=== PATIENT | male | born 1950 | race Caucasian/White ===

== ENCOUNTER → 2020-05-31 | Outpatient (CLI) | payer MEDICARE, OTHER ==
[2020-05-31 14:23] LABS: Appearance,Urine Clear (Clear); Basophils % (A) 1 %; Bilirubin,Urine Negative (Negative); Blood,Urine Negative (Negative); Color,Urine Yellow; Eosinophils # (A) 0.2 k/uL (0-0.7); Eosinophils % (A) 5 %; Glucose,Urine (UA) Negative (Negative); HCT 40.4 % (39.0-53.0); HGB 13.6 gm/dL (13.0-17.5); Ketones,Urine Negative (Negative); Leukocyte Esterase,Urine Negative (Negative); Lymphocytes # (A) 0.9 k/uL (1.0-4.8); Lymphocytes % (A) 19 %; MCH 31.5 pg (25.0-35.0); MCHC 33.6 g/dL (31.0-37.0); MCV 93.7 fL (80.0-100.0); Mean Platelet Volume 8.7; Monocytes # (A) 0.4 k/uL (0-1.0); Monocytes % (A) 8 %; Neutrophils # (A) 3.2 k/uL (1.3-7.7); Neutrophils % (A) 67 %; Nitrite,Urine Negative (Negative); Platelet Count 195 k/uL (150-450); Protein,Urine Negative (Negative); RBC 4.31 m/uL (4.30-5.90); RDW 13.8 % (11.5-15.5); Specific Gravity,Urine 1.018 (1.001-1.035); Urobilinogen,Urine <2.0 mg/dL (<2.0); WBC 4.8 k/uL (3.8-10.6)
[2020-05-31 14:33] LABS: INR 0.9 (<1.2); Partial Thromboplastin Time 25.9 sec (22.0-30.0); Prothrombin Time 9.9 sec (9.0-12.0)
[2020-05-31 14:37] LABS: ALT 32 U/L (4-49); AST 29 U/L (17-59); African American GFR (CKD) >90 (>60 ml/min/1.73 sqM); Albumin 3.9 g/dL (3.5-5.0); Alkaline Phosphatase 96 U/L (38-126); Anion Gap 7 mmol/L; Blood Urea Nitrogen 17 mg/dL (9-20); Calcium 9.5 mg/dL (8.4-10.2); Carbon Dioxide 29 mmol/L (22-30); Chloride 101 mmol/L (98-107); Glucose 211 mg/dL (74-99); Non-African American GFR(CKD) 89 (>60 ml/min/1.73 sqM); Potassium 4.3 mmol/L (3.5-5.1); Sodium 137 mmol/L (137-145); Total Bilirubin 0.6 mg/dL (0.2-1.3); Total Protein 6.6 g/dL (6.3-8.2)
== END | disposition home or self-care (01) ==
LOC: LABPAT 13:14
PROVIDERS: ATTEND Orthopaedic Surgery
DX: Z01.818 Encounter for other preprocedural examination (principal); Z79.01 Long term (current) use of anticoagulants
CPT/HCPCS: 36415; 80053; 81003; 85025; 85610; 85730; 87070; 93005

== ENCOUNTER 2020-06-08 12:17 | Day surgery (SDC) | payer MEDICARE, OTHER ==
[2020-06-04 09:25] VITALS: BMI 31.4
[~2020-06-08 12:17] MED LIST: ACETAMINOPHEN TAB 500 MG TAB PO PRN; DEXAMETHASONE SOD PHOSPHATE 4 MG/ML 1 ML VIAL IV ONE; GABAPENTIN 300 MG CAP PO PRN; MELOXICAM 7.5 MG TAB PO PRN; MIDAZOLAM 2 MG/2 ML VIAL IV PRN; ONDANSETRON 4 MG/2 ML VIAL IVP ONE; ROPIVACAINE 246.25 MG, EPINEPHrine 0.5 MG, KETOROLAC 30 MG, cloNIDine HCL/PF 80 MCG, WA... MISCELLANE PRN; TRANEXAMIC ACID 1,000 MG in SODIUM CHLORIDE 0.9% 100 ML IVPB PRN
[2020-06-08] MEDS: LACTATED RINGERS 1,000 ML IV SCH ×2 (13:18→22:08)
[2020-06-08] MEDS ORDERED: LIDOCAINE 1% (10MG/ML) FOR IV START INTRADERMA ONE (13:20)
[2020-06-08] MEDS ORDERED: MAGNESIUM HYDROXIDE 2,400 MG/10 ML CUP PO PRN (13:27)
[2020-06-08] MEDS ORDERED: HYDROmorphone 0.5 MG/0.5 ML SYRINGE IVP PRN ×2 (13:27)
[2020-06-08] MEDS ORDERED: ONDANSETRON 4 MG/2 ML VIAL IVP PRN (13:27)
[2020-06-08] MEDS ORDERED: HYDROcodone/APAP 5-325MG 1 EACH TAB PO PRN (13:27)
[2020-06-08] MEDS ORDERED: NALOXONE 0.4 MG/ML 1 ML VIAL IV PRN (13:27)
[2020-06-08] MEDS ORDERED: HYDROmorphone 0.2 MG/1 ML SYRINGE IVP PRN (13:27)
[2020-06-08] MEDS ORDERED: LIDOCAINE 1% INJ 10MG/ML (20 ML MDV) ONE (13:48)
[2020-06-08] MEDS ORDERED: ROCURONIUM 10 MG/ML (10 ML VIAL) IV ONE (13:48)
[2020-06-08] MEDS ORDERED: SUCCINYLCHOLINE CHLORIDE 100 MG/5 ML SYR IV ONE (13:48)
[2020-06-08] MEDS ORDERED: fentaNYL (PF) 50 MCG/ML 2 ML AMP ONE (13:48)
[2020-06-08] MEDS ORDERED: PHENYLEPHRINE-0.9% NACL SYG 1,000 MCG/10 ML SYRINGE ONE (13:48)
[2020-06-08] MEDS ORDERED: NEOSTIGMINE 1 MG/ML 10 ML VIAL ONE (13:48)
[2020-06-08] MEDS ORDERED: SODIUM CHLORIDE 0.9% IRRIG 1,000 ML BTL IRRIGATION ONE (13:48)
[2020-06-08] MEDS ORDERED: PROPOFOL 10 MG/ML 20 ML VIAL IV ONE (13:48)
[2020-06-08] MEDS ORDERED: MIDAZOLAM 2 MG/2 ML VIAL ONE (13:48)
[2020-06-08] MEDS ORDERED: GLYCOPYRROLATE 0.2 MG/ML 2 ML VIAL ONE (13:48)
[2020-06-08] MEDS ORDERED: HEPARIN SODIUM,PORCINE 10,000 UNIT/ML 1 ML VIAL ONE (13:48)
[2020-06-08] MEDS ORDERED: ceFAZolin 3,000 MG in SODIUM CHLORIDE 0.9% IRRIGATIO 3,000 ML IRRIGATION ONE (13:49)
[2020-06-08] MEDS ORDERED: LACTATED RINGERS 1,000 ML IV ONE (14:51)
--- NOTE | 2020-06-08 15:30 | P.OP ---
Date of Procedure: 06/08/20 Preoperative Diagnosis: Severe osteoarthritis right hip Postoperative Diagnosis: Severe osteoarthritis right hip Procedure(s) Performed: Right total hip arthroplasty with a direct anterior approach Implants: [employer] Polarstem standard size 5 [employer] R3, 3 hole hemispherical acetabular shell, 54 mm [employer] Reflection 6.5 mm cancellus screw, 20 mm 2 [employer] R3, XLPE 20 acetabular liner [employer] Oxinium femoral head 36 m, +0 All components were press-fit. The articulation is Oxinium on polyethylene. Anesthesia: GETA Surgeon: Bridger An Electric Meter Setter #1: Zhane Kline Estimated Blood Loss (ml): 100 Pathology: other (Femoral head and) Condition: stable Disposition: PACU Indications for Procedure: After failure of conservative treatment we discussed the surgical and nonsurg ical treatment options at length. Patient wishes to proceed with a total hip arthroplasty with a direct anterior approach. Complications specific to this procedure were discussed at length, including but not limited to infection, leg length discrepancy, dislocation, nerve injury, and fracture. Covid-19 was also discussed at length with the patient, and they are aware of the current policies and procedures. The patient was given the option of delaying surgery, but they elect to proceed knowing these risks. Patient is aware of all these complications and informed consent was obtained Operative Findings: The operative findings are consistent with severe osteoarthritis of the right hip Description of Procedure: Patient was seen and evaluated in the preoperative area and the consent was reviewed. The operative site was marked with a skin marker. The patient was then brought to the operating room and given preoperative antibiotics intravenously. 1 g of Tranexamic acid was also given intravenously. A general anesthetic was administered by the anesthesia department. The patient was then placed on the [place] table with the bony prominences well-padded. The hip area was then prepped with a ChloraPrep solution and draped in the usual sterile fashion. A universal timeout was then performed, which confirmed the patient's name, surgical site, ALLERGIES, and procedure being performed on the consent. Next the incision site was located at the flexion crease of the right hip. The skin and subcutaneous tissues were sharply incised. Incision was carefully dissected down to the fascia overlying the tensor fascia narendra muscle. This fascia was then incised in line with the incision. Care was taken to stay laterally in or robyn to avoid injuring the lateral femoral cutaneous nerve. Next, using blunt finger dissection, the tensor fascia narendra muscle was dissected off its investing fascia. The muscle was then carefully retracted laterally with a cobra retractor over the lateral neck of the femur. Next, the circumflex vessels were identified and cauterized using the AquaMantis device. The anterior hip capsule was then exposed. The capsule was then opened and an inverted T fashion. Cobra retractors were then placed intracapsularly. The retractors were maintained intracapsular throughout the procedure. The proximal femur was then visualized. A small amount of traction was placed on the leg. The femoral neck was then osteotomized appropriate level above the lesser trochanter. A small wedge of bone was then removed from the remaining femoral head. Next, using a corkscrew the femoral head was removed from the acetabulum. On gross visual inspection, the femoral head had complete loss of articular cartilage and multiple periarticular osteophytes. The femoral head was then measured. Attention was then turned to the acetabulum. The acetabulum was exposed and any remaining labrum was excised. Sequential reaming of the acetabulum was performed using fluoroscopic guidance until there was a good bed of bleeding cancellus bone. When the appropriate size was reached, a trial was then placed. The position and fit of the trial was checked with fluoroscopy. The trial was then removed. Then, using fluoroscopic guidance, the final implant was impacted at 20 of anteversion and 40 of abduction, and fully seated in the acetabulum. 2 screws were then placed in the acetabulum. Again fluoroscopy was used to check position of the screws. Next, the liner was then impacted, with a 20 elevated liner located in the anterior superior quadrant. Component locking was confirmed. Attention was then directed to the femur. With the aid of the [place] table, the femur was externally rotated to approximately 130, extended, and adducted under the opposite leg. A side hook was then placed under the proximal femur, and the side hook elevator was used to elevate the proximal femur while releasing the capsule. Retractors were then placed. A capsular release was performed, as well as a release of the conjoined tendon, which afforded excellent visualization of the proximal femur. Next, a box osteotome was used to lateralize the proximal femur. A animal handler was then used to locate the femoral canal. Sequential broaching was then performed with appropriate size which afforded excellent fixation in the proximal femur. A trial was then placed with appropriate head and neck, and the hip was gently reduced with the aid of the [place] table. Fluoroscopy was then used to check position of the c omponents, as well as to ensure equal leg lengths. The hip was then gently dislocated and the trials were then removed. Final implants were then impacted and the hip was again reduced. Final fluoroscopic x-rays confirmed that the components were in anatomic position, as well as equal leg lengths. The hip was also taken through range of motion, and found to be stable. The hip was then copiously irrigated with antibiotic solution with pulsatile lavage. The hip was then irrigated with Irrisept solution. The soft tissues were then injected with a ropivacaine solution, which consisted of 246.25 mg of ropivacaine, 0.5 mg of epinephrine, 30 mg of Toradol, 80 g of clonidine, and 48.45 mL of sterile water, for a total of 100 mL of fluid injected. A second dose of 1 g of Tranexamic acid was also given intravenously. Any blood collected by Cell Saver was then returned to the patient at this time. The fascia was then closed with 2-0 strata fix suture. The subcutaneous tissue was closed with 3-0 Vicryl. The subcuticular tissue was closed with 3-0 strata fix suture. The skin was then closed with Exofin skin glue. After the glue and dried, and Optifoam silver impregnated dressing was applied. The patient was then transferred to the recovery room in stable condition. The safety admin assistant ALLIE Roland was required due to the complexity of surgery, and the need for skilled surgical coder for positioning, draping, exposure, retraction, and closure of the wound.
--- NOTE | 2020-06-08 15:47 | FL ---
EXAMINATION TYPE: FL guidance operating room, XR Hip Limited RT DATE OF EXAM: 06/08/2020 CLINICAL HISTORY: Right hip pain and osteoarthritis. TECHNIQUE: Fluoroscopy. Limited intraoperative views right hip. COMPARISON: None. FINDINGS: Fluoroscopic guidance was provided during right hip replacement procedure performed by Dr. An. A total of 23 seconds of fluoroscopic time was utilized during the procedure and two spot intraoperative images are acquired. Images obtained show metallic hardware from total right hip arthroplasty satisfactory in position on frontal view. IMPRESSION: As Above.
[2020-06-08] MEDS: HYDROmorphone 0.5 MG/0.5 ML SYRINGE IVP PRN ×6 (15:54→17:00)
[2020-06-08] MEDS: SODIUM CHLORIDE 0.9% 1,000 ML IV SCH (16:24)
--- NOTE | 2020-06-08 17:09 | XR ---
RESULT: HISTORY: Status post hip surgery, assess surgical alignment TECHNIQUE: AP view of right hip. COMPARISON: None available. FINDINGS: There are postsurgical changes of right total hip arthroplasty. All hardware components are well seat ed without evidence of immediate complication. No acute fracture or dislocation. IMPRESSION: Expected postsurgical changes of right hip arthroplasty.
[2020-06-08] MEDS ORDERED: SENNOSIDES-DOCUSATE SODIUM 1 EACH TAB PO SCH (21:00)
[2020-06-08] MEDS: ASPIRIN 325 MG TAB PO SCH (21:21)
[2020-06-09] MEDS: SODIUM CHLORIDE 0.9% 1,000 ML IV SCH (05:37)
[2020-06-09] MEDS: HYDROcodone/APAP 5-325MG 1 EACH TAB PO PRN ×2 (05:39→11:41)
[2020-06-09 07:43] VITALS: BP 97/58; PULSE 72; RESP 16; TEMP 98.3
[2020-06-09] MEDS: ASPIRIN 325 MG TAB PO SCH (08:01)
--- NOTE | 2020-06-09 08:40 | P.DS ---
Providers Expected date of discharge: 06/09/20 Attending physician: Bridger An Consults: 06/08/20 13:27 Consult Physician Routine Consulting Provider: Kiseha Hatfield Consult Reason/Comments: medical management Do you want consulting provider notified?: Yes Primary care physician: Kiesha Hatfield - Discharge Diagnosis(es) (1) Osteoarthritis of right hip Current Visit: Yes Status: Acute (2) Status post total hip replacement, right Current Visit: Yes Status: Acute Hospital Course: This is a 69-year-old male with known history of degenerative arthritis of the right hip. The patient presented for evaluation as an outpatient. After discussion and consideration patient elects to proceed with total hip arthroplasty. The patient is seen preoperatively by Dr. An and medically cleared for surgery by their primary care physician. Patient is admitted to [facility] on 06/08/2020 for total hip arthroplasty. The procedure is performed without complication or sequelae. The patient is doing well postoperatively. Labs and vital signs are stable on day of discharge. On day of discharge patient's hip incision is healing well. There is minimal erythema. There is no drainage noted at this time. There is minimal soft tissue swelling to the hip and thigh. Patient has full foot and ankle motion without difficulty or pain. Calf is soft and nontender to palpation. Neurovascular status to the right lower extremity is intact. Patient is discharged home in good condition. Opioid start talking form is reviewed and signed. Please see med rec for accurate list of home medications. Plan - Discharge Summary Discharge Rx Participant: Yes New Discharge Prescriptions: New Aspirin 325 mg PO BID #60 tab HYDROcodone/APAP 5-325MG [[place] 5-325] 1 - 2 tab PO Q6HR PRN #48 tab PRN Reason: Pain Sennosides [Senokot] 2 tab PO DAILY PRN #60 tablet PRN Reason: Constipation No Action Gabapentin [Neurontin] 100 mg PO TID Ascorbic Acid [Vitamin C] 500 mg PO DAILY Vitamin E (Unknown Dose) 1 cap PO DIRECTED Vitamin B-6 (Unknown Dose) 1 tab PO DIRECTED Vitamin A (Unknown Dose) 1 tab PO DIRECTED Discharge Medication List Ascorbic Acid [Vitamin C] 500 mg PO DAILY 06/04/20 [History] Gabapentin [Neurontin] 100 mg PO TID 06/04/20 [History] Vitamin A (Unknown Dose) 1 tab PO DIRECTED 06/04/20 [History] Vitamin B-6 (Unknown Dose) 1 tab PO DIRECTED 06/04/20 [History] Vitamin E (Unknown Dose) 1 cap PO DIRECTED 06/04/20 [History] Aspirin 325 mg PO BID #60 tab 06/09/20 [Rx] HYDROcodone/APAP 5-325MG [[place] 5-325] 1 - 2 tab PO Q6HR PRN #48 tab 06/09/20 [Rx] Sennosides [Senokot] 2 tab PO DAILY PRN #60 tablet 06/09/20 [Rx] Follow up Appointment(s)/Referral(s): Bridger An DO [Doctor of Osteopathic Medicine] - 2 Weeks Activity/Diet/Wound Care/Special Instructions: Weightbearing as tolerated with walker. Leave dressing intact. Dressing may be removed by home care nurse or by patient in 10 days. May shower with dressing on. Please take aspirin 325mg twice daily for 30 days to prevent blood clots. Recommend use of compression stockings daily until follow up to help prevent swelling and blood clots. May remove at night before sleeping. Please follow-up with [facility] in 2 weeks and call with any questions or concerns, . Discharge Disposition: HOME WITH HOME HEALTH SERVICES
[2020-06-09] MEDS ORDERED: MELOXICAM 7.5 MG TAB PO SCH (09:00)
--- NOTE | 2020-06-09 10:23 | P.CONS ---
History of Present Illness - Reason for Consult Consult date: 06/09/20 Medical management Requesting physician: Bridger An - Chief Complaint OA of the right hip - History of Present Illness This is 69-year-old male patient who came in for an elective right hip arthroplasty with Dr. An. past medical history of severe osteoarthritis to the right hip. Additional medical history includes colorectal cancer, GERD and ex-smoker. Patient is currently postop day 1. Patient reports minimum pain. Patient has been up ambulating. Patient has urinated without difficulty. Patient denies chest pain or shortness of breath. Incentive spirometer has been encouraged. Patient denies any history of blood clots. Patient denies any nausea vomiting or diarrhea. Patient denies any urinary burning or frequency. Review of Systems please refer to HPI otherwise unremarkable Past Medical History Past Medical History: Cancer, GERD/Reflux, Osteoarthritis (OA) Additional Past Medical History / Comment(s): colo-rectal cancer with surgery and chemo, metastsis to lungs with radiation tx also. ([id number])., hx kidney stones, neuropathy hands & feet. History of Any Multi-Drug Resistant Organisms: None Reported Past Surgical History: Appendectomy, Bowel Resection Past Anesthesia/Blood Transfusion Reactions: No Reported Reaction, Motion Sickness Past Psychological History: No Psychological Hx Reported Smoking Status: Former smoker Past Alcohol Use History: None Reported Additional Past Alcohol Use History / Comment(s): quit smoking 4 1/2 years ago (2015), smoked approx 1 ppd, started as teenager. Past Drug Use History: None Reported - Past Family History Sister(s) Family Medical History: Cancer Additional Family Medical History / Comment(s): breast cancer Brother(s) Family Medical History: Cancer Additional Family Medical History / Comment(s): skin cancer Medications and Allergies Home Medications Medication Instructions Recorded Confirmed Type Ascorbic Acid [Vitamin C] 500 mg PO DAILY 06/04/20 06/04/20 History Gabapentin [Neurontin] 100 mg PO TID 06/04/20 06/04/20 History Vitamin A (Unknown Dose) 1 tab PO DIRECTED 06/04/20 06/08/20 History Vitamin B-6 (Unknown Dose) 1 tab PO DIRECTED 06/04/20 06/08/20 History Vitamin E (Unknown Dose) 1 cap PO DIRECTED 06/04/20 06/08/20 History Aspirin 325 mg PO BID #60 tab 06/09/20 Rx HYDROcodone/APAP 5-325MG [[place] 1 - 2 tab PO Q6HR PRN #48 tab 06/09/20 Rx 5-325] Sennosides [Senokot] 2 tab PO DAILY PRN #60 tablet 06/09/20 Rx Allergies Allergy/AdvReac Type Severity Reaction Status Date / Time No Known Allergies Allergy Verified 06/08/20 12:42 Physical Exam Vitals: Vital Signs Temp Pulse Resp BP Pulse Ox 06/09/20 07:41 98.3 F 72 16 97/58 98 06/09/20 01:15 98.0 F 79 17 96/54 94 L 06/08/20 21:14 60 93/55 96 06/08/20 20:59 63 95/56 96 06/08/20 20:45 65 95/56 95 06/08/20 20:29 69 101/57 88 L 06/08/20 20:15 61 95/62 89 L 06/08/20 19:59 65 113/67 88 L 06/08/20 19:44 62 106/65 91 L 06/08/20 19:29 65 97/62 91 L 06/08/20 19:14 62 99/63 94 L 06/08/20 18:59 58 L 106/59 96 06/08/20 18:44 58 L 94/61 93 L 06/08/20 18:29 59 L 94/65 88 L 06/08/20 18:14 63 115/72 06/08/20 17:59 73 121/67 96 06/08/20 17:55 97.8 F 60 18 99/57 94 L 06/08/20 17:19 61 16 117/51 99 06/08/20 17:04 65 16 120/77 100 06/08/20 16:49 56 L 16 105/52 100 06/08/20 16:34 66 16 116/67 99 06/08/20 16:19 58 L 16 126/62 97 06/08/20 16:04 84 16 129/64 95 06/08/20 15:49 97.9 F 98 18 149/80 95 06/08/20 12:50 98.8 F 75 16 135/69 95 Intake and Output 06/08/20 06/09/20 06/09/20 22:59 06:59 14:59 Intake Total 550 200 Output Total 100 Balance 450 200 Intake: IV 550 Oral 200 Output: Estimated Blood Loss 100 Other: Voiding Method Toilet Urinal # Voids 2 Weight 102.058 kg Head normocephalic Neck supple Lungs clear to auscultation bilaterally no wheezing or crackles Heart regular rate and rhythm S1-S2, no rub or gallop Abdomen is soft nontender nondistended positive bowel sounds no hepatosplenomegaly Extremities no edema. Right hip dressing clean dry and intact Neuro alert and orientated to 3 Assessment and Plan Assessment: 1. Right hip arthroplasty with Dr. An. Postop day 1. Aspirin for DVT prophylaxis per orthopedic services. Pain meds per orthopedic services 2. History of colorectal cancer 3. History of GERD 4. Ex-smoker. Plans for DC home today per orthopedic services. Labs pending. Time with Patient: Greater than 30
[2020-06-09 11:06] LABS: HCT 32.9 % (39.6-50.0); HGB 10.4 g/dL (13.0-17.0); MCH 30.8 pg (27.0-32.0); MCHC 31.6 g/dL (32.0-37.0); MCV 97.3 fL (80.0-97.0); Mean Platelet Volume 11.5 fL (9.5-12.2); Platelet Count 177 X 10*3/uL (140-440); RBC 3.38 X 10*6/uL (4.40-5.60); RDW 13.6 % (11.5-14.5); WBC 6.38 X 10*3/uL (4.50-10.00)
[2020-06-09 12:08] LABS: Basophils # (A) 0.01 X 10*3/uL (0.00-0.10); Basophils % (A) 0.2 %; Eosinophils # (A) 0 X 10*3/uL (0.04-0.35); Eosinophils % (A) 0 %; Lymphocytes # (A) 0.67 X 10*3/uL (0.90-5.00); Lymphocytes % (A) 10.5 %; Monocytes # (A) 0.58 X 10*3/uL (0.20-1.00); Monocytes % (A) 9.1 %; Neutrophils % (A) 79.9 %
[2020-06-09 15:19] LABS: African American GFR (CKD) 80.1 (60.0-200.0); Albumin 3.4 g/dL (3.80-4.90); Albumin/Globulin Ratio 2.43 (1.60-3.17); Anion Gap 6.8 mmol/L (4.00-12.00); BUN/Creat Ratio 22.73 Ratio (12.00-20.00); Calcium 8.5 mg/dL (8.7-10.3); Carbon Dioxide 28.2 mmol/L (21.6-31.8); Globulin 1.4 g/dL (1.6-3.3); Non-African American GFR(CKD) 69.1 (60.0-200.0); Potassium 4.4 mmol/L (3.5-5.5); Total Bilirubin 0.4 mg/dL (0.2-1.2); Total Protein 4.8 g/dL (6.2-8.2)
== END 2020-06-09 12:30 | disposition home health service (06) ==
LOC: OR 12:17 → 4SSUR 15:49 → OR 06-09 12:30
PROVIDERS: ATTEND Orthopaedic Surgery
DX: M16.11 Unilateral primary osteoarthritis, right hip (principal); R26.81 Unsteadiness on feet; Z85.038 Personal history of other malignant neoplasm of large intestine; Z98.890 Other specified postprocedural states; G62.9 Polyneuropathy, unspecified; Z87.891 Personal history of nicotine dependence; Z90.49 Acquired absence of other specified parts of digestive tract; K21.9 Gastro-esophageal reflux disease without esophagitis; Z92.21 Personal history of antineoplastic chemotherapy; Z85.118 Personal history of other malignant neoplasm of bronchus and lung; Z92.3 Personal history of irradiation; Z87.442 Personal history of urinary calculi; Z90.89 Acquired absence of other organs; Z80.3 Family history of malignant neoplasm of breast; Z80.8 Family history of malignant neoplasm of other organs or systems; Z79.82 Long term (current) use of aspirin; Z79.891 Long term (current) use of opiate analgesic; Z79.899 Other long term (current) drug therapy
CPT/HCPCS: 97110; 97161; 97535; 97165; 86891; 86900; 86901; 80053; 85025; 86850; 73501; 27130; C1776; J2250; J0171; J1644; J1100; J2710; J0690 ×3; J2405; J2001; J3010; J1885; J2795; J2370; J0330; J2704; J0735; J1170; 88300

== ENCOUNTER 2022-10-09 15:02 | Inpatient (IN) | payer MEDICARE, OTHER ==
[2022-10-09 15:32] LABS: Anisocytosis Slight; Basophils % (A) 0 %; Eosinophils # (A) 0.3 k/uL (0-0.7); Eosinophils % (A) 4 %; HCT 42.3 % (39.0-53.0); HGB 13.1 gm/dL (13.0-17.5); Hypochromasia Slight; Lymphocytes # (A) 1.7 k/uL (1.0-4.8); Lymphocytes % (A) 21 %; MCH 27.2 pg (25.0-35.0); MCHC 31.1 g/dL (31.0-37.0); MCV 87.4 fL (80.0-100.0); Mean Platelet Volume 8.5; Monocytes # (A) 0.5 k/uL (0-1.0); Monocytes % (A) 6 %; Neutrophils # (A) 5.6 k/uL (1.3-7.7); Neutrophils % (A) 67 %; Platelet Count 297 k/uL (150-450); RBC 4.84 m/uL (4.30-5.90); RDW 16.9 % (11.5-15.5); WBC 8.3 k/uL (3.8-10.6)
[2022-10-09 15:40] LABS: INR 0.9 (<1.2); Prothrombin Time 9.9 sec (9.0-12.0)
[2022-10-09 15:42] LABS: ALT 17 U/L (4-49); AST 22 U/L (17-59); African American GFR (CKD) >90 (>60 ml/min/1.73 sqM); Albumin 3.9 g/dL (3.5-5.0); Alkaline Phosphatase 102 U/L (38-126); Anion Gap 8 mmol/L; Blood Urea Nitrogen 19 mg/dL (9-20); Calcium 9.3 mg/dL (8.4-10.2); Carbon Dioxide 30 mmol/L (22-30); Chloride 104 mmol/L (98-107); Glucose 161 mg/dL (74-99); Non-African American GFR(CKD) >90 (>60 ml/min/1.73 sqM); Potassium 4.2 mmol/L (3.5-5.1); Sodium 142 mmol/L (137-145); Total Bilirubin 0.3 mg/dL (0.2-1.3); Total Protein 7.4 g/dL (6.3-8.2)
--- NOTE | 2022-10-09 15:56 | XR ---
EXAMINATION TYPE: XR chest 2V DATE OF EXAM: 10/09/2022 COMPARISON: NONE HISTORY: Shortness of breath TECHNIQUE: Frontal and lateral views of the chest are obtained. FINDINGS: Scattered senescent parenchymal changes noted. Hyperinflation compatible with COPD. 4.2 cm right suprahilar mass is suspicious for malignancy. There is nodule noted left perihilar regio n measuring 2.5 cm as well as ill-defined density left upper lobe. There is right apical infiltrate w ith apical pleural capping. Right-sided MediPort catheter is in place. Heart size is stable. Mediastinal structures are stable and grossly unremarkable. No evidence for hilar prominence. Degenerative changes dorsal spine. IMPRESSION: 1. Findings suspicious for metastatic disease or primary malignancy. CT correlation is advised.
[2022-10-09] MEDS ORDERED: HEPARIN SODIUM 1,000 UN/ML (10ML VL) IV PRN (16:35)
[2022-10-09] MEDS ORDERED: HEPARIN SODIUM 1,000 UN/ML (10ML VL) IV ONE (16:35)
[2022-10-09] MEDS ORDERED: DILTIAZEM DRIP BOLUS FROM BAG 1 MG SOLN IV ONE (16:35)
[2022-10-09] MEDS ORDERED: SODIUM CHLORIDE 0.9% 500 ML 500 ML IV ONE (16:36)
[2022-10-09] MEDS ORDERED: ACETAMINOPHEN TAB 325 MG TAB PO PRN (16:36)
[2022-10-09] MEDS ORDERED: NALOXONE 0.4 MG/ML 1 ML VIAL IV PRN (16:36)
--- NOTE | 2022-10-09 16:44 | ED ---
General Adult HPI - General Chief complaint: Shortness of Breath Stated complaint: SOB-sent from Drs Time Seen by Provider: 10/09/22 16:28 Source: patient, RN notes reviewed, old records reviewed Mode of arrival: ambulatory Limitations: no limitations - History of Present Illness Initial comments: 72-year-old male history of lung CVA presents from the outpatient setting with new onset atrial flutter with RVR. Patient states he has had some dyspnea but this has been present for several months. No central chest pain. No fever. No lower extremity pain or swelling. He denies previous diagnosis of tachydysrhythmia. - Related Data Home Medications Medication Instructions Recorded Confirmed Ascorbic Acid [Vitamin C] 500 mg PO DAILY 06/04/20 06/04/20 Gabapentin [Neurontin] 100 mg PO TID 06/04/20 06/04/20 Vitamin A (Unknown Dose) 1 tab PO DIRECTED 06/04/20 06/08/20 Vitamin B-6 (Unknown Dose) 1 tab PO DIRECTED 06/04/20 06/08/20 Vitamin E (Unknown Dose) 1 cap PO DIRECTED 06/04/20 06/08/20 Previous Rx's Medication Instructions Recorded Aspirin 325 mg PO BID #60 tab 06/09/20 HYDROcodone/APAP 5-325MG [[place] 1 - 2 tab PO Q6HR PRN #48 tab 06/09/20 5-325] Sennosides [Senokot] 2 tab PO DAILY PRN #60 tablet 06/09/20 Allergies Allergy/AdvReac Type Severity Reaction Status Date / Time No Known Allergies Allergy Verified 10/09/22 15:06 Review of Systems ROS Statement: Those systems with pertinent positive or pertinent negative responses have been documented in the HPI. ROS Other: All systems not noted in ROS Statement are negative. Past Medical History Past Medical History: No Reported History History of Any Multi-Drug Resistant Organisms: None Reported Past Surgical History: Appendectomy Additional Past Surgical History / Comment(s): Rectal tumor. Past Psychological History: No Psychological Hx Reported Smoking Status: Former smoker Past Alcohol Use History: None Reported Past Drug Use History: None Reported General Exam Limitations: no limitations General appearance: alert, in no apparent distress Head exam: Present: atraumatic, normocephalic Eye exam: Present: normal appearance, PERRL ENT exam: Present: normal exam Neck exam: Present: normal inspection. Absent: tenderness Respiratory exam: Present: normal lung sounds bilaterally. Absent: respiratory distress, wheezes Cardiovascular Exam: Present: normal rhythm, tachycardia GI/Abdominal exam: Present: soft. Absent: distended, tenderness, guarding Extremities exam: Present: normal inspection, normal capillary refill. Absent: pedal edema Neurological exam: Present: alert, oriented X3, CN II-XII intact. Absent: motor sensory deficit Psychiatric exam: Present: normal affect, normal mood Skin exam: Present: warm, dry, intact. Absent: cyanosis, diaphoretic Course Vital Signs 10/09/22 15:04 Temperature 97.8 F Pulse Rate 148 H Respiratory 22 Rate Blood Pressure 137/94 O2 Sat by Pulse 96 Oximetry Medical Decision Making - Medical Decision Making Was pt. sent in by a medical professional or institution (ALLIE Monterroso, SENIOR QUANTITY SURVEYOR, urgent care, hospital, or penitentiary...) When possible be specific @ -Sent in by primary care physician Did you speak to anyone other than the patient for history (EMS, parent, family, police, friend...)? What history was obtained from this source @ -No Did you review nursing and triage notes (agree or disagree)? Why? @ -I reviewed and agree with nursing and triage notes Were old charts reviewed (outside hosp., previous admission, EMS record, old EKG, old radiological studies, urgent care reports/EKG's, penitentiary records)? Report findings @ -No old charts were reviewed Differential Diagnosis (chest pain, altered mental status, abdominal pain women, abdominal pain men, vaginal bleeding, weakness, fever, dyspnea, syncope, headache, dizziness, GI bleed, back pain, seizure, CVA, palpatations, mental health, musculoskeletal)? @ -not applicable EKG interpreted by me (3pts min.). @ -EKG: Atrial flutter with RVR with 2-1 conduction rate of 148, QRS duration 93, QTC 356, no ST segment elevation X-rays interpreted by me (1pt min.). @ Suggestive of metastatic disease CT interpreted by me (1pt min.). @ -None done U/S interpreted by me (1pt. min.). @ -None done What testing was considered but not performed or refused? (CT, X-rays, U/S, labs)? Why? @ -None What meds were considered but not given or refused? Why? @ -None Did you discuss the management of the patient with other professionals (professionals i.e. DrClay, PA, SENIOR QUANTITY SURVEYOR, lab, RT, psych nurse, social worker assistant, attorney lawyer, teacher, medical officer, watch caser)? Give summary @ -Discussed with Dr. Hatfield who will admit Was smoking cessation discussed for >3mins.? @ -No Was critical care preformed (if so, how long)? @ -No Were there social determinants of health that impacted care today? How? (Homelessness, low income, unemployed, alcoholism, drug addiction, transportation, low edu. Level, literacy, decrease access to med. care, senior living, rehab)? @ -No Was there de-escalation of care discussed even if they declined (Discuss DNR or withdrawal of care, Hospice)? DNR status @ -No What co-morbidities impacted this encounter? (DM, HTN, Smoking, COPD, CAD, Cancer, CVA, ARF, Chemo, Hep., AIDS, mental health diagnosis, sleep apnea, morbid obesity)? @ -Lung CA Was patient admitted / discharged? Hospital course, mention meds given and route, prescriptions, significant lab abnormalities, going to OR and other pertinent info. @ -72-year-old male presenting with new diagnosis of atrial prior with RVR. Patient has normal CBC, normal CMP, negative troponin. Placed on Cardizem and heparin in the emergency department. Will be admitted for rate control, cardiology consultation. Undiagnosed new problem with uncertain prognosis? @ -No Drug Therapy requiring intensive monitoring for toxicity (Heparin, Nitro, Insulin, Cardizem)? @ -No Were any procedures done? @ -No Diagnosis/symptom? @ -[ Atrial flutter with RVR Acute, or Chronic, or Acute on Chronic? @ -[Acute Uncomplicated (without systemic symptoms) or Complicated (systemic symptoms)? @ -[Complicated Side effects of treatment? @ -No Exacerbation, Progression, or Severe Exacerbation? @ -No Poses a threat to life or bodily function? How? (Chest pain, USA, ND, pneumonia, PE, COPD, DKA, ARF, appy, cholecystitis, CVA, Diverticulitis, Homicidal, Suicidal, threat to staff... and all critical care pts) @ -[Yes, arrhythmia - Lab Data Result diagrams: 10/09/22 15:10 10/09/22 15:10 Lab Results 10/09/22 10/09/22 10/09/22 Range/Units 15:10 15:10 15:10 WBC 8.3 (3.8-10.6) k/uL RBC 4.84 (4.30-5.90) m/uL Hgb 13.1 (13.0-17.5) gm/dL Hct 42.3 (39.0-53.0) % MCV 87.4 (80.0-100.0) fL MCH 27.2 (25.0-35.0) pg MCHC 31.1 (31.0-37.0) g/dL RDW 16.9 H (11.5-15.5) % Plt Count 297 (150-450) k/uL MPV 8.5 Neutrophils % 67 % Lymphocytes % 21 % Monocytes % 6 % Eosinophils % 4 % Basophils % 0 % Neutrophils # 5.6 (1.3-7.7) k/uL Lymphocytes # 1.7 (1.0-4.8) k/uL Monocytes # 0.5 (0-1.0) k/uL Eosinophils # 0.3 (0-0.7) k/uL Basophils # 0.0 (0-0.2) k/uL Hypochromasia Slight Anisocytosis Slight PT 9.9 (9.0-12.0) sec INR 0.9 (<1.2) APTT 26.0 (22.0-30.0) sec Sodium 142 (137-145) mmol/L Potassium 4.2 (3.5-5.1) mmol/L Chloride 104 (98-107) mmol/L Carbon Dioxide 30 (22-30) mmol/L Anion Gap 8 mmol/L BUN 19 (9-20) mg/dL Creatinine 0.81 (0.66-1.25) mg/dL Est GFR (CKD-EPI)AfAm >90 (>60 ml/min/1.73 sqM) Est GFR (CKD-EPI)NonAf >90 (>60 ml/min/1.73 sqM) Glucose 161 H (74-99) mg/dL Calcium 9.3 (8.4-10.2) mg/dL Magnesium 2.0 (1.6-2.3) mg/dL Total Bilirubin 0.3 (0.2-1.3) mg/dL AST 22 (17-59) U/L ALT 17 (4-49) U/L Alkaline Phosphatase 102 (38-126) U/L Troponin I (0.000-0.034) ng/mL Total Protein 7.4 (6.3-8.2) g/dL Albumin 3.9 (3.5-5.0) g/dL 10/09/22 Range/Units 15:10 WBC (3.8-10.6) k/uL RBC (4.30-5.90) m/uL Hgb (13.0-17.5) gm/dL Hct (39.0-53.0) % MCV (80.0-100.0) fL MCH (25.0-35.0) pg MCHC (31.0-37.0) g/dL RDW (11.5-15.5) % Plt Count (150-450) k/uL MPV Neutrophils % % Lymphocytes % % Monocytes % % Eosinophils % % Basophils % % Neutrophils # (1.3-7.7) k/uL Lymphocytes # (1.0-4.8) k/uL Monocytes # (0-1.0) k/uL Eosinophils # (0-0.7) k/uL Basophils # (0-0.2) k/uL Hypochromasia Anisocytosis PT (9.0-12.0) sec INR (<1.2) APTT (22.0-30.0) sec Sodium (137-145) mmol/L Potassium (3.5-5.1) mmol/L Chloride (98-107) mmol/L Carbon Dioxide (22-30) mmol/L Anion Gap mmol/L BUN (9-20) mg/dL Creatinine (0.66-1.25) mg/dL Est GFR (CKD-EPI)AfAm (>60 ml/min/1.73 sqM) Est GFR (CKD-EPI)NonAf (>60 ml/min/1.73 sqM) Glucose (74-99) mg/dL Calcium (8.4-10.2) mg/dL Magnesium (1.6-2.3) mg/dL Total Bilirubin (0.2-1.3) mg/dL AST (17-59) U/L ALT (4-49) U/L Alkaline Phosphatase (38-126) U/L Troponin I <0.012 (0.000-0.034) ng/mL Total Protein (6.3-8.2) g/dL Albumin (3.5-5.0) g/dL Disposition Clinical Impression: Atrial flutter with rapid ventricular response Disposition: ADMITTED IP TO THIS HOSP Condition: Stable Is patient prescribed a controlled substance at d/c from ED?: No Referrals: Kiesha Hatfield MD [Primary Care Provider] - 1-2 days Time of Disposition: 16:44
[2022-10-09] MEDS ORDERED: DILTIAZEM 125 MG in SODIUM CHLORIDE 0.9% 100 ML IV SCH (16:45)
[2022-10-09] MEDS: SODIUM CHLORIDE 0.9% 1,000 ML IV SCH (17:38)
[2022-10-09] MEDS: HEPARIN SOD,PORK IN 0.45% NACL 25,000 UNIT in 0.45% NACL 1 250ML.BAG IV SCH (18:03)
[2022-10-09] MEDS: DILTIAZEM 125 MG in SODIUM CHLORIDE 0.9% 100 ML IV SCH (20:50)
[2022-10-09] MEDS ORDERED: guaiFENesin-Coden 100-10MG/5ML 10 ML CUP PO PRN (22:14)
[2022-10-09] MEDS: CHOLECALCIFEROL 25 MCG (1000 IU) TABLET PO SCH (22:23)
[2022-10-09] MEDS: GABAPENTIN 100 MG CAP PO SCH (22:23)
[2022-10-09] MEDS: ASCORBIC ACID 500 MG TAB PO SCH (22:24)
[2022-10-10] MEDS: DILTIAZEM 125 MG in SODIUM CHLORIDE 0.9% 100 ML IV SCH (03:56)
[2022-10-10] MEDS ORDERED: SODIUM CHLORIDE 0.9% 500 ML 500 ML IV ONE (04:17)
[2022-10-10] MEDS: SODIUM CHLORIDE 0.9% 1,000 ML IV SCH ×2 (05:30→20:14)
[2022-10-10] MEDS: LEVOTHYROXINE 25 MCG TAB PO SCH (05:30)
[2022-10-10 07:23] LABS: Anisocytosis Slight; Basophils % (A) 0 %; Eosinophils # (A) 0.4 k/uL (0-0.7); Eosinophils % (A) 5 %; HCT 40.7 % (39.0-53.0); HGB 12.4 gm/dL (13.0-17.5); Hypochromasia Slight; Lymphocytes # (A) 1.6 k/uL (1.0-4.8); Lymphocytes % (A) 21 %; MCH 26.7 pg (25.0-35.0); MCHC 30.4 g/dL (31.0-37.0); MCV 88.1 fL (80.0-100.0); Mean Platelet Volume 8.5; Monocytes # (A) 0.5 k/uL (0-1.0); Monocytes % (A) 7 %; Neutrophils # (A) 4.9 k/uL (1.3-7.7); Neutrophils % (A) 65 %; Platelet Count 251 k/uL (150-450); RBC 4.62 m/uL (4.30-5.90); RDW 16.9 % (11.5-15.5); WBC 7.6 k/uL (3.8-10.6)
[2022-10-10 07:25] LABS: Prothrombin Time 10.8 sec (9.0-12.0)
[2022-10-10] MEDS: GABAPENTIN 100 MG CAP PO SCH ×2 (08:57→20:08)
[2022-10-10] MEDS: ASCORBIC ACID 500 MG TAB PO SCH ×3 (08:57→20:08)
[2022-10-10] MEDS: ZINC SULFATE 220 MG CAP PO SCH (08:57)
[2022-10-10] MEDS: CHOLECALCIFEROL 25 MCG (1000 IU) TABLET PO SCH (08:57)
[2022-10-10] MEDS: METOPROLOL TARTRATE 50 MG TAB PO SCH ×2 (08:57→20:08)
[2022-10-10] MEDS ORDERED: NON FORMULARY DRUG (Vitamin B Complex [Vitamin B Complex] 1 EACH Capsule) PO SCH (09:00)
[2022-10-10] MEDS ORDERED: NON FORMULARY DRUG (Omega-3/Dha/Epa/Fish Oil [Fish Oil 1,000 Mg Softgel] 1 EACH Capsule) PO SCH (09:00)
[2022-10-10] MEDS ORDERED: DEXTROSE 5% IN WATER 100 ML with AMIODARONE 150 MG IV ONE (09:50)
[2022-10-10] MEDS ORDERED: AMIODARONE 360 MG in DEXTROSE 5% IN WATER 200 ML IV ONE ×2 (10:00)
--- NOTE | 2022-10-10 10:12 | P.CNPUL ---
History of Present Illness Consult date: 10/10/22 Requesting physician: Kiesha Hatfield Reason for consult: lung mass, abnormal CXR/CT Chief complaint: Abnormal chest x-ray. History of present illness: Pulmonary consult dated 10/10/2022. 72-year-old male with a history of metastatic colorectal carcinoma, to the lung. We're consulted today because of an abnormal chest x-ray, showing multiple pulmonary masses/nodules. The patient states that back in 2017, he was diagnosed with colorectal carcinoma, and had surgery done by Dr. Jacobo. Subsequent to that, the patient had chemotherapy. Afterwards, the patient was discovered to have pulmonary masses, and had a fine-needle biopsy, which resulted any pneumothorax. 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 Because of the pneumothorax, the patient had a Thora vent catheter placed, which was subsequently removed, and at that time, the patient saw my partner. More recently, the patient has had radiation to the lung masses the patient was admitted to the hospital with shortness of breath, and was found to have atrial fibrillation with RVR. He's currently on saline at 75 mL an hour, Cardizem drip at 10 mg an hour, and IV heparin. He is on room air. The patient is scheduled to see my partner in the office eventually. White count 7.6, hemoglobin 12.4, hematocrit 40.7, and platelet count 251,000. PTT is 38.7. Electrolyte profile is normal save for a glucose of 161. Chest x- ray shows multiple pulmonary nodules/masses, one in the right suprahilar region, one in the left perihilar region, as well as one in the left upper lobe. Review of Systems REVIEW OF SYSTEMS: CONSTITUTIONAL: [Negative.] NEUROLOGIC: [ Negative.] HEENT: [ Negative.] CARDIAC: Atrial fibrillation. PULMONARY: Shortness of breath. GI: [Negative.] : [Negative.] RHEUMATOLOGIC: [ Negative.] IMMUNOLOGIC: [ Negative.] ENDOCRINE: [Negative. ] DERMATOLOGIC: [Negative.] Past Medical History Past Medical History: Cancer, Osteoarthritis (OA) History of Any Multi-Drug Resistant Organisms: None Reported Past Surgical History: Appendectomy Additional Past Surgical History / Comment(s): Rectal tumor, right total hip replacement Past Anesthesia/Blood Transfusion Reactions: No Reported Reaction Past Psychological History: No Psychological Hx Reported Smoking Status: Former smoker Past Alcohol Use History: None Reported Past Drug Use History: None Reported Medications and Allergies Home Medications Medication Instructions Recorded Confirmed Type Gabapentin [Neurontin] 100 mg PO HS 06/04/20 10/09/22 History Ascorbic Acid [Vitamin C] 5,000 mg PO TID 10/09/22 10/09/22 History Cholecalciferol [Vitamin D3 (25 25 mcg PO DAILY 10/09/22 10/09/22 History Mcg = 1000 Iu)] Gabapentin [Neurontin] 200 mg PO DAILY 10/09/22 10/09/22 History Levothyroxine Sodium [Synthroid] 25 mcg PO DAILY 10/09/22 10/09/22 History [place]-3/Dha/Epa/Fish Oil [Fish Oil 1 cap PO DAILY 10/09/22 10/09/22 History 1,000 mg Softgel] Vitamin B Complex 1 cap PO DAILY 10/09/22 10/09/22 History Zinc Gluconate [Zinc] 50 mg PO DAILY 10/09/22 10/09/22 History Allergies Allergy/AdvReac Type Severity Reaction Status Date / Time No Known Allergies Allergy Verified 10/09/22 17:11 Physical Exam Osteopathic Statement: *. No significant issues noted on an osteopathic structural exam other than those noted in the History and Physical/Consult. Vitals: Vital Signs Temp Pulse Pulse Resp BP BP Pulse Ox 10/10/22 09:02 97.8 F 145 H 18 94/65 94 L 10/10/22 04:57 145 H 20 106/75 97 10/10/22 03:50 97.6 F 147 H 20 87/61 92 L 10/09/22 23:06 97.7 F 146 H 20 92/68 94 L 10/09/22 21:12 147 H 20 10/09/22 21:11 97.7 F 147 H 20 108/76 93 L 10/09/22 20:27 144 H 20 99/76 93 L 10/09/22 20:15 144 H 18 92/69 95 10/09/22 19:36 146 H 18 110/80 96 10/09/22 19:30 147 H 19 110/80 95 10/09/22 19:00 147 H 16 100/71 95 10/09/22 18:30 147 H 21 122/95 94 L 10/09/22 18:00 147 H 16 122/95 96 10/09/22 17:30 146 H 21 101/89 10/09/22 17:00 147 H 18 102/92 94 L 10/09/22 16:30 147 H 19 121/90 95 10/09/22 16:26 20 10/09/22 15:04 97.8 F 148 H 22 137/94 96 Intake and Output 10/09/22 10/10/22 10/10/22 22:59 06:59 14:59 Intake Total 127.333 185.5 Balance 127.333 185.5 Intake: Intake, IV Titration 9.333 185.5 Amount Diltiazem 125 mg In 125 Sodium Chloride 0.9% 100 ml @ 10 MG/HR 10 mls/hr IV .[id number] [facility] Rx#: [id number] Diltiazem 125 mg In 9.333 Sodium Chloride 0.9% 100 ml @ 5 MG/HR 5 mls/hr IV .Q24H [place] Rx#:[id number] Heparin Sod,Pork in 0.45% 60.5 NaCl 25,000 unit In 0.45 % NaCl 1 250ml.bag @ 11. 423 UNITS/KG/HR 10 mls/hr IV .Q24H [place] Rx#: [id number] Oral 118 Other: Voiding Method Toilet Toilet Toilet # Voids 1 # Bowel Movements 1 Weight 87.543 kg No acute distress, oriented 3. Currently on room air. HEENT examination is grossly unremarkable. Neck supple. Full range of motion. No adenopathy thyromegaly or neck vein distention. Cardiovascular examination reveals an irregular rhythm and rate. S1-S2 normal. No S3 or S4. No discernible murmur noted. Heart rate 140 bpm. Lungs reveal clear breath sounds. Breath sounds are equal bilaterally. No adve ntitious lung sounds including wheezes rhonchi or crackles. Room air saturation is 94% Abdomen soft bowel sounds are heard. No masses or tenderness. Extremities are intact. No cyanosis clubbing or edema. Skin is without rash or lesion. Neurologic examination is brief but nonfocal. Results - Laboratory Findings CBC and BMP: 10/10/22 06:29 10/09/22 15:10 PT/INR, D-dimer PT 10.8 sec (9.0-12.0) 10/10/22 06:29 INR 1.0 (<1.2) 10/10/22 06:29 Abnormal lab findings: Abnormal Labs 10/09/22 10/09/22 10/09/22 15:10 15:10 23:02 Hgb MCHC RDW 16.9 H APTT 38.9 H Glucose 161 H 10/10/22 10/10/22 06:29 06:29 Hgb 12.4 L MCHC 30.4 L RDW 16.9 H APTT 38.7 H Glucose - Diagnostic Findings Chest x-ray: image reviewed Assessment and Plan Assessment: Metastatic colorectal carcinoma, to the lungs. New onset atrial fibrillation with RVR. Previous history of colon resection, for colorectal carcinoma, and subsequent chemotherapy Prior history of tobacco use. Previous history of fine-needle aspiration of the lung mass, with resultant pneumothorax, status post Thoravent placement. Plan: Plan dated 10/10/2022. Nothing to offer from the pulmonary standpoint at this time. The patient apparently has an appointment ready with my partner. The patient has a known history of metastatic colorectal carcinoma, with metastasis to the lungs. He has had a biopsy of the lung lesions. The biopsy resulted in the diagnosis of metastatic adenocarcinoma, primary GI tract, and also unfortunately, the patient sustained a pneumothorax, requiring Thoravent placement. The patient was seen in the office at that time, by my partner. Additional recommendations and suggestions are forthcoming. Prognosis is guarded. Time with Patient: Greater than 30
--- NOTE | 2022-10-10 10:39 | P.CRDCN ---
History of Present Illness History of present illness: HISTORY OF PRESENT ILLNESS: This is a 72-year-old male with a past medical history significant for colorectal cancer and former nicotine dependence. Patient does not follow with a caregiver services home. We have been asked to see the patient in consultation for atrial flutter. Patient examined at the bedside. Patient states he has been dealing with pneumonia since the middle of August. He has been receiving antibiotics per his primary care physician. He states that he went in for a follow-up appointment with his primary care physician yesterday and had an EKG completed which revealed an irregular heart rhythm and he was referred to the emergency room. The patient currently denies shortness of breath. He reports shortness of breath with exertion however. He denies any chest pain or pressure. He denies any palpitations. Patient remains in atrial flutter this morning with a heart rate in the 140s. He is currently on IV heparin and IV Cardizem infusion at 10 mg an hour. The patient did become hypotensive on a Cardizem drip requiring IV fluid bolus. * EKG reveals atrial flutter with RVR * Chest xray 4.2 right suprahilar mass suspicious for malignancy. There is nodule noted left perihilar region measuring 2.5 cm as well as ill-defined density left upper lobe. There is right apical infiltrate with apical pleural capping. Findings suspicious for metastatic disease * Laboratory data: WBC 7.6. Hemoglobin 12.4. Platelet count 251. Sodium 142. Potassium 4.2. BUN 19. Creatinine 0.81. Troponin negative 1. * Current home cardiac medications include none REVIEW OF SYSTEMS: At the time of my exam: CONSTITUTIONAL: Denies fever or chills. HEENT: Denies blurred vision, vision changes, or eye pain. Denies hemoptysis CARDIOVASCULAR: Denies chest pain. Denies orthopnea. Denies PND. Denies palpitations RESPIRATORY: Denies shortness of breath. GASTROINTESTINAL: Denies abdominal pain. Denies nausea or vomiting. HEMATOLOGIC: Denies bleeding disorders. GENITOURINARY: Denies any blood in urine. SKIN: Denies pruitis. Denies rash. PHYSICAL EXAM: VITAL SIGNS: Reviewed. GENERAL: Well-developed in no acute distress. HEENT: Head is normocephalic. Pupils are equal, round. Sclerae anicteric. Mucous membranes of the mouth are moist. Neck supple. No JVD or thyromegaly LUNGS: Respirations even and unlabored. Lungs essentially clear to auscultation bilaterally. HEART: Tachycardic. Regular rate and rhythm. S1 and S2 heard. ABDOMEN: Soft. Nondistended. Nontender. EXTREMITIES: Normal range of motion. No clubbing or cyanosis. Peripheral pulses intact. No lower extremity edema NEUROLOGIC: Awake and alert. Oriented x 3. ASSESSMENT: Shortness of breath 1 month New-onset typical atrial flutter with RVR History of colorectal cancer with metastatic disease to the lung Former nicotine dependence, patient quit smoking 6 years ago Hypothyroidism PLAN: Obtain 2-D echo to assess cardiac structure and function Check TSH Discontinue IV Cardizem Begin IV amiodarone bolus and infusion per protocol Begin metoprolol tartrate 50 mg twice a day Continue telemetry monitoring Continue IV heparin Consult pulmonary for evaluation Further recommendations pending patient's course Nurse practitioner note has been reviewed by physician. Signing provider agrees with the documented findings, assessment, and plan of care. Past Medical History Past Medical History: Cancer, Osteoarthritis (OA) History of Any Multi-Drug Resistant Organisms: None Reported Past Surgical History: Appendectomy Additional Past Surgical History / Comment(s): Rectal tumor, right total hip replacement Past Anesthesia/Blood Transfusion Reactions: No Reported Reaction Past Psychological History: No Psychological Hx Reported Smoking Status: Former smoker Past Alcohol Use History: None Reported Past Drug Use History: None Reported Medications and Allergies Home Medications Medication Instructions Recorded Confirmed Type Gabapentin [Neurontin] 100 mg PO HS 06/04/20 10/09/22 History Ascorbic Acid [Vitamin C] 5,000 mg PO TID 10/09/22 10/09/22 History Cholecalciferol [Vitamin D3 (25 25 mcg PO DAILY 10/09/22 10/09/22 History Mcg = 1000 Iu)] Gabapentin [Neurontin] 200 mg PO DAILY 10/09/22 10/09/22 History Levothyroxine Sodium [Synthroid] 25 mcg PO DAILY 10/09/22 10/09/22 History [place]-3/Dha/Epa/Fish Oil [Fish Oil 1 cap PO DAILY 10/09/22 10/09/22 History 1,000 mg Softgel] Vitamin B Complex 1 cap PO DAILY 10/09/22 10/09/22 History Zinc Gluconate [Zinc] 50 mg PO DAILY 10/09/22 10/09/22 History Allergies Allergy/AdvReac Type Severity Reaction Status Date / Time No Known Allergies Allergy Verified 10/09/22 17:11 Physical Exam Vitals: Vital Signs Temp Pulse Pulse Resp BP BP Pulse Ox 10/10/22 04:57 145 H 20 106/75 97 10/10/22 03:50 97.6 F 147 H 20 87/61 92 L 10/09/22 23:06 97.7 F 146 H 20 92/68 94 L 10/09/22 21:12 147 H 20 10/09/22 21:11 97.7 F 147 H 20 108/76 93 L 10/09/22 20:27 144 H 20 99/76 93 L 10/09/22 20:15 144 H 18 92/69 95 10/09/22 19:36 146 H 18 110/80 96 10/09/22 19:30 147 H 19 110/80 95 10/09/22 19:00 147 H 16 100/71 95 10/09/22 18:30 147 H 21 122/95 94 L 10/09/22 18:00 147 H 16 122/95 96 10/09/22 17:30 146 H 21 101/89 10/09/22 17:00 147 H 18 102/92 94 L 10/09/22 16:30 147 H 19 121/90 95 10/09/22 16:26 20 10/09/22 15:04 97.8 F 148 H 22 137/94 96 Intake and Output 10/09/22 10/10/22 10/10/22 22:59 06:59 14:59 Intake Total 127.333 185.5 Balance 127.333 185.5 Intake: Intake, IV Titration 9.333 185.5 Amount Diltiazem 125 mg In 125 Sodium Chloride 0.9% 100 ml @ 10 MG/HR 10 mls/hr IV .[id number] [facility] Rx#: [id number] Diltiazem 125 mg In 9.333 Sodium Chloride 0.9% 100 ml @ 5 MG/HR 5 mls/hr IV .Q24H [facility] Rx#:[id number] Heparin Sod,Pork in 0.45% 60.5 NaCl 25,000 unit In 0.45 % NaCl 1 250ml.bag @ 11. 423 UNITS/KG/HR 10 mls/hr IV .Q24H [facility] Rx#: [id number] Oral 118 Other: Voiding Method Toilet Toilet # Voids 1 # Bowel Movements 1 Weight 87.543 kg Results 10/10/22 06:29 10/09/22 15:10 Cardiac Enzymes 10/09/22 10/09/22 Range/Units 15:10 15:10 AST 22 (17-59) U/L Troponin I <0.012 (0.000-0.034) ng/mL Coagulation 10/09/22 10/09/22 10/10/22 Range/Units 15:10 23:02 06:29 PT 9.9 10.8 (9.0-12.0) sec APTT 26.0 38.9 H (22.0-30.0) sec 10/10/22 Range/Units 06:29 PT (9.0-12.0) sec APTT 38.7 H (22.0-30.0) sec CBC 10/09/22 10/10/22 Range/Units 15:10 06:29 WBC 8.3 7.6 (3.8-10.6) k/uL RBC 4.84 4.62 (4.30-5.90) m/uL Hgb 13.1 12.4 L (13.0-17.5) gm/dL Hct 42.3 40.7 (39.0-53.0) % Plt Count 297 251 (150-450) k/uL Comprehensive Metabolic Panel 10/09/22 Range/Units 15:10 Sodium 142 (137-145) mmol/L Potassium 4.2 (3.5-5.1) mmol/L Chloride 104 (98-107) mmol/L Carbon Dioxide 30 (22-30) mmol/L BUN 19 (9-20) mg/dL Creatinine 0.81 (0.66-1.25) mg/dL Glucose 161 H (74-99) mg/dL Calcium 9.3 (8.4-10.2) mg/dL AST 22 (17-59) U/L ALT 17 (4-49) U/L Alkaline Phosphatase 102 (38-126) U/L Total Protein 7.4 (6.3-8.2) g/dL Albumin 3.9 (3.5-5.0) g/dL Current Medications Generic Name Dose Route Start Last Admin Trade Name Freq PRN Reason Stop Dose Admin Acetaminophen 650 mg 06/12/23 16:36 Acetaminophen Tab 325 Mg Tab PO Q6HR PRN Mild Pain or Fever > 100.5 Ascorbic Acid 5,000 mg 10/09/22 22:15 10/09/22 22:24 Ascorbic Acid 500 Mg Tab PO 5,000 mg TID [facility] Administration Cholecalciferol 25 mcg 10/09/22 22:15 10/09/22 22:23 Cholecalciferol 25 Mcg (1000 Iu) Tablet PO 25 mcg DAILY [facility] Administration Gabapentin 100 mg 10/09/22 22:15 10/09/22 22:23 Gabapentin 100 Mg Cap PO 100 mg HS [facility] Administration Gabapentin 200 mg 10/10/22 09:00 Gabapentin 100 Mg Cap PO DAILY [facility] Guaifenesin/Codeine Phosphate 10 ml 10/09/22 22:14 Guaifenesin-Coden 100-10mg/5ml 10 Ml Cup PO Q6HR PRN Cough Heparin Sodium (Porcine) 0 unit 10/09/22 16:35 Heparin Sodium 1,000 Un/Ml (10ml Vl) IV PER PROTOCOL PRN Low PTT Protocol Heparin Sodium/Sodium Chloride 250 mls @ 10 mls/hr 10/09/22 16:45 10/10/22 00:06 25,000 unit/ Sodium Chloride IV 13.71 units/kg/hr .Q24H [facility] 12 mls/hr Titration Protocol 11.423 UNITS/KG/HR Sodium Chloride 1,000 mls @ 75 mls/hr 10/09/22 16:45 10/10/22 05:30 Saline 0.9% IV 75 mls/hr .[id number] [facility] Administration Diltiazem HCl 125 mg/ Sodium 125 mls @ 10 mls/hr 10/09/22 20:45 10/10/22 03:56 Chloride IV 10 mg/hr .[id number] [facility] 10 mls/hr Administration 10 MG/HR Levothyroxine Sodium 25 mcg 10/10/22 06:30 10/10/22 05:30 Levothyroxine 25 Mcg Tab PO 25 mcg DAILY@0630 [facility] Administration Naloxone HCl 0.2 mg 10/09/22 16:36 Naloxone 0.4 Mg/Ml 1 Ml Vial IV Q2M PRN Opioid Reversal Zinc Sulfate 220 mg 10/10/22 09:00 Zinc Sulfate 220 Mg Cap PO DAILY [facility] Intake and Output 10/09/22 10/10/22 10/10/22 22:59 06:59 14:59 Intake Total 127.333 185.5 Balance 127.333 185.5 Intake: Intake, IV Titration 9.333 185.5 Amount Diltiazem 125 mg In 125 Sodium Chloride 0.9% 100 ml @ 10 MG/HR 10 mls/hr IV .[id number] [facility] Rx#: [id number] Diltiazem 125 mg In 9.333 Sodium Chloride 0.9% 100 ml @ 5 MG/HR 5 mls/hr IV .Q24H [facility] Rx#:[id number] Heparin Sod,Pork in 0.45% 60.5 NaCl 25,000 unit In 0.45 % NaCl 1 250ml.bag @ 11. 423 UNITS/KG/HR 10 mls/hr IV .Q24H [facility] Rx#: [id number] Oral 118 Other: Voiding Method Toilet Toilet # Voids 1 # Bowel Movements 1 Weight 87.543 kg 10/10/22 06:29 10/09/22 15:10
--- NOTE | 2022-10-10 12:53 | P.HPIM ---
History of Present Illness H&P Date: 10/10/22 Rao Calix, is a 72-year-old male who presented to [facility] emergency room with a chief complaint of shortness of breath and palpitation He was evaluated in the emergency room vital examination on presentation revealed a temperature of 97.8 pulse 148 respiration 22 blood pressure 137/94 pulse ox 96% on room air Laboratory data revealed a white blood count of 8.3 hemoglobin 13.1 platelet count 297 sodium 142 potassium 4.2 chloride 104 CO2 30 BUN 19 creatinine 0.81 Testing in the emergency room revealed EKG done in the emergency room revealed atrial flutter with rapid ventricular response, chest x-ray was suspicious for metastatic disease to the lungs. Patient was admitted to medical floor for further evaluation and treatment Past medical history is significant for history of metastatic colorectal carcinoma to the lungs, history of colon cancer with partial colectomy and chemotherapy, history of lung biopsy which revealed metastatic colorectal carcinoma to the lungs, previous history of pneumothorax with floor Atrovent placement, previous history of tobacco use. On review of systems patient is alert and oriented 3 in no apparent distress he is complaining of palpitation and shortness of breath otherwise he denies any complaints there is no fever or chills no headache or dizziness no chest pain no cough no nausea or vomiting no abdominal pain no diarrhea no blood in the stools no burning with urination no frequency or urgency and no hematuria. Past Medical History Past Medical History: Cancer, Osteoarthritis (OA) History of Any Multi-Drug Resistant Organisms: None Reported Past Surgical History: Appendectomy Additional Past Surgical History / Comment(s): Rectal tumor, right total hip replacement Past Anesthesia/Blood Transfusion Reactions: No Reported Reaction Past Psychological History: No Psychological Hx Reported Smoking Status: Former smoker Past Alcohol Use History: None Reported Past Drug Use History: None Reported Medications and Allergies Home Medications Medication Instructions Recorded Confirmed Type Gabapentin [Neurontin] 100 mg PO HS 06/04/20 10/09/22 History Ascorbic Acid [Vitamin C] 5,000 mg PO TID 10/09/22 10/09/22 History Cholecalciferol [Vitamin D3 (25 25 mcg PO DAILY 10/09/22 10/09/22 History Mcg = 1000 Iu)] Gabapentin [Neurontin] 200 mg PO DAILY 10/09/22 10/09/22 History Levothyroxine Sodium [Synthroid] 25 mcg PO DAILY 10/09/22 10/09/22 History [place]-3/Dha/Epa/Fish Oil [Fish Oil 1 cap PO DAILY 10/09/22 10/09/22 History 1,000 mg Softgel] Vitamin B Complex 1 cap PO DAILY 10/09/22 10/09/22 History Zinc Gluconate [Zinc] 50 mg PO DAILY 10/09/22 10/09/22 History Allergies Allergy/AdvReac Type Severity Reaction Status Date / Time No Known Allergies Allergy Verified 10/09/22 17:11 Physical Exam Vitals: Vital Signs Temp Pulse Pulse Resp BP BP Pulse Ox 10/10/22 09:02 97.8 F 145 H 18 94/65 94 L 10/10/22 04:57 145 H 20 106/75 97 10/10/22 03:50 97.6 F 147 H 20 87/61 92 L 10/09/22 23:06 97.7 F 146 H 20 92/68 94 L 10/09/22 21:12 147 H 20 10/09/22 21:11 97.7 F 147 H 20 108/76 93 L 10/09/22 20:27 144 H 20 99/76 93 L 10/09/22 20:15 144 H 18 92/69 95 10/09/22 19:36 146 H 18 110/80 96 10/09/22 19:30 147 H 19 110/80 95 10/09/22 19:00 147 H 16 100/71 95 10/09/22 18:30 147 H 21 122/95 94 L 10/09/22 18:00 147 H 16 122/95 96 10/09/22 17:30 146 H 21 101/89 10/09/22 17:00 147 H 18 102/92 94 L 10/09/22 16:30 147 H 19 121/90 95 10/09/22 16:26 20 10/09/22 15:04 97.8 F 148 H 22 137/94 96 Intake and Output 10/09/22 10/10/22 10/10/22 22:59 06:59 14:59 Intake Total 127.333 185.5 Balance 127.333 185.5 Intake: Intake, IV Titration 9.333 185.5 Amount Diltiazem 125 mg In 125 Sodium Chloride 0.9% 100 ml @ 10 MG/HR 10 mls/hr IV .[id number] [facility] Rx#: [id number] Diltiazem 125 mg In 9.333 Sodium Chloride 0.9% 100 ml @ 5 MG/HR 5 mls/hr IV .Q24H [facility] Rx#:[id number] Heparin Sod,Pork in 0.45% 60.5 NaCl 25,000 unit In 0.45 % NaCl 1 250ml.bag @ 11. 423 UNITS/KG/HR 10 mls/hr IV .Q24H [facility] Rx#: [id number] Oral 118 Other: Voiding Method Toilet Toilet # Voids 1 # Bowel Movements 1 Weight 87.543 kg In general patient is alert and oriented x 3 in no distress HEENT head normocephalic and atraumatic Neck is supple no JVD no goiter no lymphadenopathy no carotid bruit Chest examination is clear to auscultation no crackles no wheezing Cardiac exam reveals regular heart sounds S1 and S2 no gallops no murmurs Abdomen is soft nontender no organomegaly with normal bowel sounds Extremity exam reveals no edema no cyanosis or clubbing Neurological examination reveals no gross focal deficits Results CBC & Chem 7: 10/10/22 06:29 10/09/22 15:10 Labs: Abnormal Lab Results - Last 24 Hours (Table) 10/09/22 10/09/22 10/09/22 Range/Units 15:10 15:10 23:02 Hgb (13.0-17.5) gm/dL MCHC (31.0-37.0) g/dL RDW 16.9 H (11.5-15.5) % APTT 38.9 H (22.0-30.0) sec Glucose 161 H (74-99) mg/dL 10/10/22 10/10/22 Range/Units 06:29 06:29 Hgb 12.4 L (13.0-17.5) gm/dL MCHC 30.4 L (31.0-37.0) g/dL RDW 16.9 H (11.5-15.5) % APTT 38.7 H (22.0-30.0) sec Glucose (74-99) mg/dL Thrombosis Risk Factor Assmnt - Choose All That Apply Any of the Below Risk Factors Present?: No Other Risk Factors: Yes Each Risk Factor Represents 2 Points: Age 61-74 years Other congenital or acquired thrombophilia - If yes, enter type in comment: No Thrombosis Risk Factor Assessment Total Risk Factor Score: 2 Thrombosis Risk Factor Assessment Level: Low Risk Assessment and Plan Plan: Atrial flutter with rapid ventricular response Underlying history of colorectal adenocarcinoma with metastatic lung disease Previous history of lung biopsy with subsequence pneumothorax and Torah vent placement Underlying history of hypothyroidism Previous history of tobacco abuse At this time patient is admitted to telemetry floor He was started on IV Cardizem and IV heparin Home medications reviewed and reordered Cardiology consultation and pulmonary consultation were requested Will add oncology consultation to assess if patient would benefit of any treatment Will follow closely
--- NOTE | 2022-10-10 12:58 | CA ---
Transthoracic Echo Report Name: Rao Calix Age: 72 Gender: M : 1950 Exam Date: 10/10/2022 10:00 Exam Location: [place] [facility] Ht (in): 71 Wt (lb): 193 Ordering Physician: Kiesha Hatfield MD Attending/Referring Phys: Sql Data Architect Kenji Johnson Procedure CPT: Indications: shortness of breah Cardiac Hx: Technical Quality: Fair Contrast 1: Total Dose (mL): Contrast 2: Total Dose (mL): MEASUREMENTS (Male / Female) Normal Values 2D ECHO LV Diastolic Diameter PLAX 3.8 cm 4.2 - 5.9 / 3.9 - 5.3 cm LV Systolic Diameter PLAX 2.5 cm IVS Diastolic Thickness 1.5 cm 0.6 - 1.0 / 0.6 - 0.9 cm LVPW Diastolic Thickness 1.1 cm 0.6 - 1.0 / 0.6 - 0.9 cm LV Relative Wall Thickness 0.7 RV Internal Dim ED PLAX 3.9 cm LVOT Diameter 2.1 cm Aortic Root Diameter 3.6 cm LA Systolic Diameter LX 2.4 cm 3.0 - 4.0 / 2.7 - 3.8 cm LV Diastolic Volume MOD BP 53.1 cm??? 67 - 155 / 56 - 104 cm??? LV Systolic Volume MOD BP 25.7 cm??? 22 - 58 / 19 - 49 cm??? LV Ejection Fraction MOD BP 51.7 % >= 55 % LV Diastolic Volume MOD 4C 51.0 cm??? LV Systolic Volume MOD 4C 25.7 cm??? LV Ejection Fraction MOD 4C 49.6 % LV Diastolic Length 4C 7.1 cm LV Systolic Length 4C 6.6 cm LV Diastolic Volume MOD 2C 50.5 cm??? LV Systolic Volume MOD 2C 23.7 cm??? LV Ejection Fraction MOD 2C 53.0 % LV Diastolic Length 2C 6.5 cm LV Systolic Length 2C 6.0 cm LA Volume 51.7 cm??? 18 - 58 / 22 - 52 cm??? Ascending Aorta Diameter 3.4 cm DOPPLER AV Peak Velocity 94.9 cm/s AV Peak Gradient 3.6 mmHg AI Peak Velocity 304.4 cm/s AI Peak Gradient 37.1 mmHg AI Pressure Half Time 1189.4 ms LVOT Peak Velocity 76.2 cm/s LVOT Peak Gradient 2.3 mmHg AV Area Cont Eq pk 2.7 cm??? Mitral E Point Velocity 76.7 cm/s Mitral A Point Velocity 45.7 cm/s Mitral E to A Ratio 1.7 MV Deceleration Time 121.3 ms MV E' Velocity 6.8 cm/s Mitral E to MV E' Ratio 11.3 TR Peak Velocity 240.2 cm/s TR Peak Gradient 23.1 mmHg Right Ventricular Systolic Press 28.2 mmHg FINDINGS Left Ventricle Left ventricular ejection fraction is estimated at 50-55 %.left ventricular cavity size normal. Right Ventricle Dilated right ventricle with normal right ventricular systolic pressure Right Atrium Normal right atrial size. Left Atrium Normal left atrial size. Mitral Valve Structurally normal mitral valve. Mild mitral regurgitation. Aortic Valve Trileaflet aortic valve. Mild AI. Tricuspid Valve Structurally normal tricuspid valve. Mild TR. Pulmonic Valve Pulmonic valve not well visualized. No pulmonic regurgitation. Pericardium Normal pericardium. Aorta Normal size aortic root and proximal ascending aorta. CONCLUSIONS 1. Left ventricular systolic function is borderline normal 2. Mild mitral, aortic and tricuspid regurgitation Previewed by: Dr. Willie Chowdhury MD (Electronically Signed) Final Date: 10 October 2022 12:57
[2022-10-10 13:18] VITALS: BMI 26.9
[2022-10-10] MEDS: HEPARIN SOD,PORK IN 0.45% NACL 25,000 UNIT in 0.45% NACL 1 250ML.BAG IV SCH (15:29)
[2022-10-10 15:55] VITALS: RESP 18
[2022-10-10] MEDS: AMIODARONE 450 MG in DEXTROSE 5% IN WATER 250 ML IV SCH ×2 (17:22)
[2022-10-10 23:17] VITALS: TEMP 98.2
[2022-10-11 03:59] VITALS: PULSE 64
[2022-10-11] MEDS: LEVOTHYROXINE 25 MCG TAB PO SCH (05:37)
[2022-10-11] MEDS: AMIODARONE 450 MG in DEXTROSE 5% IN WATER 250 ML IV SCH ×2 (05:37)
[2022-10-11 08:55] LABS: Anisocytosis Slight; Basophils % (A) 0 %; Eosinophils # (A) 0.3 k/uL (0-0.7); Eosinophils % (A) 6 %; HCT 36.2 % (39.0-53.0); HGB 11.1 gm/dL (13.0-17.5); Hypochromasia Marked; Lymphocytes # (A) 1.1 k/uL (1.0-4.8); Lymphocytes % (A) 22 %; MCH 27.6 pg (25.0-35.0); MCHC 30.7 g/dL (31.0-37.0); Mean Platelet Volume 8.8; Monocytes # (A) 0.3 k/uL (0-1.0); Monocytes % (A) 6 %; Neutrophils # (A) 3.3 k/uL (1.3-7.7); Neutrophils % (A) 65 %; Platelet Count 203 k/uL (150-450); RBC 4.02 m/uL (4.30-5.90); RDW 16.9 % (11.5-15.5)
[2022-10-11] MEDS: GABAPENTIN 100 MG CAP PO SCH (09:22)
[2022-10-11] MEDS: METOPROLOL TARTRATE 50 MG TAB PO SCH (09:24)
[2022-10-11] MEDS: ZINC SULFATE 220 MG CAP PO SCH (09:24)
[2022-10-11] MEDS: CHOLECALCIFEROL 25 MCG (1000 IU) TABLET PO SCH (09:24)
[2022-10-11] MEDS: ASCORBIC ACID 500 MG TAB PO SCH (09:25)
[2022-10-11] MEDS: SODIUM CHLORIDE 0.9% 1,000 ML IV SCH (09:25)
[2022-10-11 09:46] LABS: ALT 22 U/L (4-49); AST 27 U/L (17-59); African American GFR (CKD) >90 (>60 ml/min/1.73 sqM); Albumin 3.1 g/dL (3.5-5.0); Alkaline Phosphatase 103 U/L (38-126); Anion Gap 6 mmol/L; Blood Urea Nitrogen 12 mg/dL (9-20); Calcium 8.2 mg/dL (8.4-10.2); Carbon Dioxide 24 mmol/L (22-30); Chloride 108 mmol/L (98-107); Glucose 196 mg/dL (74-99); Non-African American GFR(CKD) 89 (>60 ml/min/1.73 sqM); Potassium 4.5 mmol/L (3.5-5.1); Sodium 138 mmol/L (137-145); Total Bilirubin 0.4 mg/dL (0.2-1.3); Total Protein 6.1 g/dL (6.3-8.2)
[2022-10-11] MEDS ORDERED: AMIODARONE 200 MG TAB PO SCH (10:00)
[2022-10-11] MEDS ORDERED: APIXABAN 5 MG TAB PO SCH (10:00)
--- NOTE | 2022-10-11 11:24 | P.PN ---
Subjective Progress Note Date: 10/11/22 Principal diagnosis: Abnormal chest x-ray. Pulmonary consult dated 10/10/2022. 72-year-old male with a history of metastatic colorectal carcinoma, to the lung. We're consulted today because of an abnormal chest x-ray, showing multiple pulmonary masses/nodules. The patient states that back in 2017, he was diagnosed with colorectal carcinoma, and had surgery done by Dr. Jacobo. Subsequent to that, the patient had chemotherapy. Afterwards, the patient was discovered to have pulmonary masses, and had a fine-needle biopsy, which resulted any pneumothorax. 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 Because of the pneumothorax, the patient had a Thora vent catheter placed, which was subsequently removed, and at that time, the patient saw my partner. More recently, the patient has had radiation to the lung masses the patient was admitted to the hospital with shortness of breath, and was found to have atrial fibrillation with RVR. He's currently on saline at 75 mL an hour, Cardizem drip at 10 mg an hour, and IV heparin. He is on room air. The patient is scheduled to see my partner in the office eventually. White count 7.6, hemoglobin 12.4, hematocrit 40.7, and platelet count 251,000. PTT is 38.7. Electrolyte profile is normal save for a glucose of 161. Chest x- ray shows multiple pulmonary nodules/masses, one in the right suprahilar region, one in the left perihilar region, as well as one in the left upper lobe. Progress note dated 10/11/2022. 72-year-old male that we saw in consultation yesterday, with an abnormal x-ray. The patient has a known history of colorectal carcinoma, with metastasis to the lung. We were consulted because of an abnormal chest x-ray, showing multiple pulmonary masses/nodules. Please see my consultation above. Currently, he's on room air. He is getting saline at 75 mL an hour. White count 5, hemoglobin 11.1, hematocrit 36.2, and platelet count 203,000. Sodium 138, potassium 4.5, chlorides 108, CO2 24, BUN 12, and creatinine 0.83. Objective - Vital Signs Vital signs: Vital Signs Temp 98.2 F 10/11/22 03:30 Pulse 64 06/14/23 03:30 Resp 18 10/11/22 03:30 BP 106/69 10/11/22 03:30 Pulse Ox 92 L 10/11/22 03:30 FiO2 Intake & Output 10/10/22 10/11/22 10/11/22 18:59 06:59 18:59 Intake Total 889.5 250 490 Balance 889.5 250 490 Weight 87.543 kg Intake: Intake, IV Titration 189.5 250 250 Amount Amiodarone 450 mg In 250 Dextrose 5% in Water 250 ml @ 0.5 MG/MIN 16.667 mls/hr IV .Q15H [facility] Rx#: [id number] Heparin Sod,Pork in 0.45% 189.5 250 NaCl 25,000 unit In 0.45 % NaCl 1 250ml.bag @ 11. 423 UNITS/KG/HR 10 mls/hr IV .Q24H [facility] Rx#: [id number] Oral 700 240 Other: Voiding Method Toilet Toilet # Voids 1 # Bowel Movements 2 - Exam No acute distress, oriented 3. Currently on room air. Saturations are 94%. HEENT examination is grossly unremarkable. Neck supple. Full range of motion. No adenopathy thyromegaly or neck vein distention. Cardiovascular examination reveals a regular rhythm and rate. S1-S2 normal. No S3 or S4. No discernible murmur noted. Heart rate 92 bpm. Lungs reveal clear breath sounds. Breath sounds are equal bilaterally. No adventitious lung sounds including wheezes rhonchi or crackles. Room air saturation is 94% Abdomen soft bowel sounds are heard. No masses or tenderness. Extremities are intact. No cyanosis clubbing or edema. Skin is without rash or lesion. Neurologic examination is brief but nonfocal. - Labs CBC & Chem 7: 10/11/22 08:00 10/11/22 08:00 Labs: Abnormal Lab Results - Last 24 Hours (Table) 10/10/22 10/11/22 10/11/22 Range/Units 15:35 08:00 08:00 RBC 4.02 L (4.30-5.90) m/uL Hgb 11.1 L (13.0-17.5) gm/dL Hct 36.2 L (39.0-53.0) % MCHC 30.7 L (31.0-37.0) g/dL RDW 16.9 H (11.5-15.5) % APTT 51.0 H (22.0-30.0) sec Chloride 108 H (98-107) mmol/L Glucose 196 H (74-99) mg/dL Calcium 8.2 L (8.4-10.2) mg/dL Total Protein 6.1 L (6.3-8.2) g/dL Albumin 3.1 L (3.5-5.0) g/dL 10/11/22 Range/Units 08:00 RBC (4.30-5.90) m/uL Hgb (13.0-17.5) gm/dL Hct (39.0-53.0) % MCHC (31.0-37.0) g/dL RDW (11.5-15.5) % APTT 65.9 H (22.0-30.0) sec Chloride (98-107) mmol/L Glucose (74-99) mg/dL Calcium (8.4-10.2) mg/dL Total Protein (6.3-8.2) g/dL Albumin (3.5-5.0) g/dL Assessment and Plan Assessment: Metastatic colorectal carcinoma, to the lungs. New onset atrial fibrillation with RVR, now in normal sinus rhythm. Previous history of colon resection, for colorectal carcinoma, and subsequent chemotherapy Prior history of tobacco use. Previous history of fine-needle aspiration of the lung mass, with resultant pneumothorax, status post Thoravent placement. Plan: Plan dated 10/10/2022. Nothing to offer from the pulmonary standpoint at this time. The patient apparently has an appointment ready with my partner. The patient has a known history of metastatic colorectal carcinoma, with metastasis to the lungs. He has had a biopsy of the lung lesions. The biopsy resulted in the diagnosis of metastatic adenocarcinoma, primary GI tract, and also unfortunately, the patient sustained a pneumothorax, requiring Thoravent placement. The patient was seen in the office at that time, by my partner. Additional recommendations and suggestions are forthcoming. Prognosis is guarded. Plan dated 10/11/2022. The patient is back in sinus rhythm. Clinically, the patient stable from the pulmonary standpoint. He has a known history of metastatic colorectal carcinoma, with metastasis to the lungs and the abnormalities on the recent chest x-ray, are not new. We'll follow moving forward only as needed. Prognosis is guarded. No additional recommendations at this time. Time with Patient: Less than 30
--- NOTE | 2022-10-11 11:35 | P.PN ---
Subjective HISTORY OF PRESENT ILLNESS: This is a 72-year-old male with a past medical history significant for colorectal cancer and former nicotine dependence. Patient does not follow with a bods developer. We have been asked to see the patient in consultation for atrial flutter. Patient examined at the bedside. Patient states he has been dealing with pneumonia since the middle of August. He has been receiving antibiotics per his primary care physician. He states that he went in for a follow-up appointment with his primary care physician yesterday and had an EKG completed which revealed an irregular heart rhythm and he was referred to the emergency room. The patient currently denies shortness of breath. He reports shortness o f breath with exertion however. He denies any chest pain or pressure. He denies any palpitations. Patient remains in atrial flutter this morning with a heart rate in the 140s. He is currently on IV heparin and IV Cardizem infusion at 10 mg an hour. The patient did become hypotensive on a Cardizem drip requiring IV fluid bolus. * EKG reveals atrial flutter with RVR * Chest xray 4.2 right suprahilar mass suspicious for malignancy. There is nodule noted left perihilar region measuring 2.5 cm as well as ill-defined density left upper lobe. There is right apical infiltrate with apical pleural capping. Findings suspicious for metastatic disease * Laboratory data: WBC 7.6. Hemoglobin 12.4. Platelet count 251. Sodium 142. Potassium 4.2. BUN 19. Creatinine 0.81. Troponin negative 1. * Current home cardiac medications include none 10/11/2022 Patient examined this morning at the bedside. Patient denies chest pain or pressure. He denies short of breath. Telemetry reveals sinus mechanism. Vital signs are stable. Echocardiogram completed revealing preserved LV systolic function. PHYSICAL EXAM: VITAL SIGNS: Reviewed. GENERAL: Well-developed in no acute distress. HEENT: Head is normocephalic. Pupils are equal, round. Sclerae anicteric. Mucous membranes of the mouth are moist. Neck supple. No JVD or thyromegaly LUNGS: Respirations even and unlabored. Lungs essentially clear to auscultation bilaterally. HEART: Tachycardic. Regular rate and rhythm. S1 and S2 heard. ABDOMEN: Soft. Nondistended. Nontender. EXTREMITIES: Normal range of motion. No clubbing or cyanosis. Peripheral pulses intact. No lower extremity edema NEUROLOGIC: Awake and alert. Oriented x 3. ASSESSMENT: Shortness of breath 1 month New-onset typical atrial flutter with RVR History of colorectal cancer with metastatic disease to the lung Former nicotine dependence, patient quit smoking 6 years ago Hypothyroidism PLAN: Discontinue IV heparin Begin Eliquis 5mg BID Begin oral amiodarone 200 mg twice a day for one week then decrease dose to 200 mg daily Continue metoprolol Patient may be discharged home today from a cardiac standpoint Nurse practitioner note has been reviewed by physician. Signing provider agrees with the documented findings, assessment, and plan of care. Objective - Vital Signs Vital signs: Vital Signs Temp 98.2 F 10/11/22 03:30 Pulse 64 10/11/22 03:30 Resp 18 10/11/22 03:30 BP 106/69 10/11/22 03:30 Pulse Ox 92 L 10/11/22 03:30 FiO2 Intake & Output 10/10/22 10/11/22 10/11/22 18:59 06:59 18:59 Intake Total 889.5 250 490 Balance 889.5 250 490 Weight 87.543 kg Intake: Intake, IV Titration 189.5 250 250 Amount Amiodarone 450 mg In 250 Dextrose 5% in Water 250 ml @ 0.5 MG/MIN 16.667 mls/hr IV .Q15H [facility] Rx#: [id number] Heparin Sod,Pork in 0.45% 189.5 250 NaCl 25,000 unit In 0.45 % NaCl 1 250ml.bag @ 11. 423 UNITS/KG/HR 10 mls/hr IV .Q24H [facility] Rx#: [id number] Oral 700 240 Other: Voiding Method Toilet Toilet # Voids 1 # Bowel Movements 2 - Labs CBC & Chem 7: 10/11/22 08:00 10/11/22 08:00 Labs: Abnormal Lab Results - Last 24 Hours (Table) 10/10/22 10/11/22 10/11/22 Range/Units 15:35 08:00 08:00 RBC 4.02 L (4.30-5.90) m/uL Hgb 11.1 L (13.0-17.5) gm/dL Hct 36.2 L (39.0-53.0) % MCHC 30.7 L (31.0-37.0) g/dL RDW 16.9 H (11.5-15.5) % APTT 51.0 H (22.0-30.0) sec Chloride 108 H (98-107) mmol/L Glucose 196 H (74-99) mg/dL Calcium 8.2 L (8.4-10.2) mg/dL Total Protein 6.1 L (6.3-8.2) g/dL Albumin 3.1 L (3.5-5.0) g/dL 10/11/22 Range/Units 08:00 RBC (4.30-5.90) m/uL Hgb (13.0-17.5) gm/dL Hct (39.0-53.0) % MCHC (31.0-37.0) g/dL RDW (11.5-15.5) % APTT 65.9 H (22.0-30.0) sec Chloride (98-107) mmol/L Glucose (74-99) mg/dL Calcium (8.4-10.2) mg/dL Total Protein (6.3-8.2) g/dL Albumin (3.5-5.0) g/dL
[2022-10-11 11:42] VITALS: BP 105/68
--- NOTE | 2022-10-11 13:50 | CT ---
EXAMINATION TYPE: CT angio chest DATE OF EXAM: 10/11/2022 COMPARISON: None HISTORY: PE suspected CT DLP: 444.1 mGycm CONTRAST: CT chest with contrast and 3D reconstruction with MIP imaging is performed without and with IV Contra st, patient injected with 100 ml mL of Isovue 370. Contrast-enhanced CT of the chest was performed through the course of the pulmonary arteries with bala g and mediastinal window settings submitted. 3D reconstruction with MIP imaging was also performed. PULMONARY ARTERIES: The pulmonary arteries and their major tributaries are patent. There is encaseme nt right upper lobe pulmonary arterial branches by tumor and infiltrate. No definite thrombus noted a t this time. I do not see evidence for sizable filling defect to suggest pulmonary embolic process. LUNGS: There is right suprahilar mass measuring 5.8 x 2.9 cm endobronchial lesion noted. There is occ lusion of the right upper lobe bronchus associated volume loss and postobstructive pneumonitis. Addit ional elongated mass is seen within the left upper lobe measuring 4.4 x 1.9 cm. Subpleural nodule rig ht upper lobe measures 8 mm image 82 sequence 406. Additional spiculated nodule is seen in right lowe r lobe which is pleural-based and measures 1.9 x 1.2 cm image 103 sequence 406. Additional left upper lobe elongated nodular density measures 2.5 x 1.3 cm image 37 sequence 406. MEDIASTINUM: Thoracic aorta is of normal caliber,however, evaluation is limited given timing of the contrast bolus. If there is concern for thoracic aortic pathology consider GEOVANNA. Correlate clinicall y . The heart is not enlarged. No evidence for mediastinal mass. No mediastinal lymph nodes greater than 1cm. HILAR STRUCTURES: No evidence for mass. No hilar lymph nodes greater than 1 cm. Submitted abdomen and pelvic images don't demonstrate evidence for hepatic or adrenal lesion. Kidneys excrete contrast symmetrically. Gastrointestinal tract of normal caliber. No definite adenopathy diallo reciated. IMPRESSION: 1. No evidence for Pulmonary embolism at this time. 2. Right suprahilar mass with endobronchial lesion occluding the right upper lobe bronchus thought to reflect malignancy until proven otherwise. There is associated volume loss and postobstructive infil trate. Tumor encases right upper lobe pulmonary arterial branches without occlusion at this time. Add itional pulmonary masses/nodules as described above.
--- NOTE | 2022-10-11 14:48 | P.DS ---
Providers Date of admission: 10/09/22 16:36 Expected date of discharge: 10/11/22 Attending physician: Kiesha Hatfield Consults: 10/09/22 16:36 Consult Physician Routine Consulting Provider: Willie Chowdhury Consult Reason/Comments: New A-flutter RVR Do you want consulting provider notified?: Yes 10/10/22 09:23 Consult Physician Routine Consulting Provider: Shawn Hudson Consult Reason/Comments: abnormal CXR, SOB Do you want consulting provider notified?: Yes 10/10/22 10:23 Consult Physician Routine Consulting Provider: Antelmo Aguilar Consult Reason/Comments: metastatic adenocarcinoma Do you want consulting provider notified?: Yes Primary care physician: Kiesha Hatfield [facility] Course: Diagnosis on discharge: Atrial flutter with rapid ventricular response Underlying history of colorectal adenocarcinoma with metastatic lung disease Previous history of lung biopsy with subsequence pneumothorax and Torah vent placement Underlying history of hypothyroidism Previous history of tobacco abuse Hospital course: Rao Calix, is a 72-year-old male who presented to [facility] emergency room with a chief complaint of shortness of breath and palpitation He was evaluated in the emergency room vital examination on presentation revealed a temperature of 97.8 pulse 148 respiration 22 blood pressure 137/94 pulse ox 96% on room air Laboratory data revealed a white blood count of 8.3 hemoglobin 13.1 platelet count 297 sodium 142 potassium 4.2 chloride 104 CO2 30 BUN 19 creatinine 0.81 Testing in the emergency room revealed EKG done in the emergency room revealed atrial flutter with rapid ventricular response, chest x-ray was suspicious for metastatic disease to the lungs. Patient was admitted to medical floor for further evaluation and treatment Past medical history is significant for history of metastatic colorectal carcinoma to the lungs, history of colon cancer with partial colectomy and chemotherapy, history of lung biopsy which revealed metastatic colorectal carcinoma to the lungs, previous history of pneumothorax with floor Atrovent placement, previous history of tobacco use. On review of systems patient is alert and oriented 3 in no apparent distress he is complaining of palpitation and shortness of breath otherwise he denies any complaints there is no fever or chills no headache or dizziness no chest pain no cough no nausea or vomiting no abdominal pain no diarrhea no blood in the stools no burning with urination no frequency or urgency and no hematuria. On 10/11/2022 patient was seen and examined on the medical floor he is alert and oriented 3 in no apparent distress there is no fever or chills no headache or dizziness no chest pain no shortness of breath no cough no palpitation no nausea or vomiting no abdominal pain no diarrhea no blood in the stools no burning with urination no frequency or urgency and no hematuria. Patient was evaluated by cardiology he was started on oral amiodarone, metoprolol, and Eliquis, he was cleared for discharge to home, will follow in the office for further evaluation and treatment. Patient Condition at Discharge: Stable Plan - Discharge Summary Discharge Rx Participant: No New Discharge Prescriptions: New Amiodarone [Cordarone] 200 mg PO BID #180 tab Apixaban [Eliquis] 5 mg PO BID #60 tab Metoprolol Tartrate [Lopressor] 50 mg PO BID #180 tab Continue Gabapentin [Neurontin] 100 mg PO HS Zinc Gluconate [Zinc] 50 mg PO DAILY Gabapentin [Neurontin] 200 mg PO DAILY Vitamin B Complex 1 cap PO DAILY [place]-3/Dha/Epa/Fish Oil [Fish Oil 1,000 mg Softgel] 1 cap PO DAILY Levothyroxine Sodium [Synthroid] 25 mcg PO DAILY Cholecalciferol [Vitamin D3 (25 Mcg = 1000 Iu)] 25 mcg PO DAILY Ascorbic Acid [Vitamin C] 5,000 mg PO TID Discharge Medication List Gabapentin [Neurontin] 100 mg PO HS 06/04/20 [History] Ascorbic Acid [Vitamin C] 5,000 mg PO TID 10/09/22 [History] Cholecalciferol [Vitamin D3 (25 Mcg = 1000 Iu)] 25 mcg PO DAILY 10/09/22 [His tory] Gabapentin [Neurontin] 200 mg PO DAILY 10/09/22 [History] Levothyroxine Sodium [Synthroid] 25 mcg PO DAILY 10/09/22 [History] [place]-3/Dha/Epa/Fish Oil [Fish Oil 1,000 mg Softgel] 1 cap PO DAILY 10/09/22 [History] Vitamin B Complex 1 cap PO DAILY 10/09/22 [History] Zinc Gluconate [Zinc] 50 mg PO DAILY 10/09/22 [History] Amiodarone [Cordarone] 200 mg PO BID #180 tab 10/11/22 [Rx] Apixaban [Eliquis] 5 mg PO BID #60 tab 10/11/22 [Rx] Metoprolol Tartrate [Lopressor] 50 mg PO BID #180 tab 10/11/22 [Rx] Follow up Appointment(s)/Referral(s): Adriana Zamudio MD [STAFF PHYSICIAN] - 1 Week Kiesha Hatfield MD [Primary Care Provider] - 1-2 days
--- NOTE | 2022-10-11 15:54 | P.CONS ---
History of Present Illness - Reason for Consult Consult date: 10/11/22 hx metastatic adenocarcinoma Requesting physician: Kiesha Hatfield - Chief Complaint SOB - History of Present Illness Patiet is a 72 year old male with a history of metastatic colon adenocarcinoma. He is a patient of Dr Aguilar. He completed neoadjuvant chemo/RT in 01/2016 and r esection with anastomosis on 03/10/16. He completed adjuvant chemo 08/2016. Due to progression started FOLFIRI and completed 12 cycles in 06/2017. Since he has continued observation with rad onc with plan to target lesions that showed growth. Patient has refused any maintenance treatment and continues on observation. Patient presented to the emergency room with progressing shortness of breath and cough that has worsened over the last month. Patient was found to be in atrial flutter and has been subsequently started on IV heparin. Cardiology consulted. Chest x-ray revealed findings suspicious for metastatic disease or primary malignancy. 4.2 cm right suprahilar mass. With nodule noted in the left perihilar region measuring 2.5 cm as well as ill-defined density left upper lobe. Right apical infiltrate with apical pleural capping. at today's visit patient reports significant improvement in breathing since admission. Reports cough is still present. Denies chest pain and dizziness. Hemoglobin 11.1, WBC 5.0, platelets 203,000. Review of Systems 10 point ROS is negative except as stated in the HPI Past Medical History Past Medical History: Cancer, Osteoarthritis (OA) History of Any Multi-Drug Resistant Organisms: None Reported Past Surgical History: Appendectomy Additional Past Surgical History / Comment(s): Rectal tumor, right total hip replacement Past Anesthesia/Blood Transfusion Reactions: No Reported Reaction Past Psychological History: No Psychological Hx Reported Smoking Status: Former smoker Past Alcohol Use History: None Reported Past Drug Use History: None Reported Medications and Allergies Home Medications Medication Instructions Recorded Confirmed Type Gabapentin [Neurontin] 100 mg PO HS 06/04/20 10/09/22 History Ascorbic Acid [Vitamin C] 5,000 mg PO TID 10/09/22 10/09/22 History Cholecalciferol [Vitamin D3 (25 25 mcg PO DAILY 10/09/22 10/09/22 History Mcg = 1000 Iu)] Gabapentin [Neurontin] 200 mg PO DAILY 10/09/22 10/09/22 History Levothyroxine Sodium [Synthroid] 25 mcg PO DAILY 10/09/22 10/09/22 History [place]-3/Dha/Epa/Fish Oil [Fish Oil 1 cap PO DAILY 10/09/22 10/09/22 History 1,000 mg Softgel] Vitamin B Complex 1 cap PO DAILY 10/09/22 10/09/22 History Zinc Gluconate [Zinc] 50 mg PO DAILY 10/09/22 10/09/22 History Amiodarone [Cordarone] 200 mg PO BID #180 tab 10/11/22 Rx Apixaban [Eliquis] 5 mg PO BID #60 tab 10/11/22 Rx Metoprolol Tartrate [Lopressor] 50 mg PO BID #180 tab 10/11/22 Rx Allergies Allergy/AdvReac Type Severity Reaction Status Date / Time No Known Allergies Allergy Verified 10/09/22 17:11 Physical Exam Vitals: Vital Signs Temp Pulse Resp BP Pulse Ox 10/11/22 03:30 98.2 F 64 18 106/69 92 L 10/10/22 23:15 98.2 F 58 L 18 118/80 94 L 10/10/22 20:03 97.3 F L 74 18 99/63 95 10/10/22 15:54 97.6 F 74 18 96/64 94 L 10/10/22 12:12 80 16 93/60 97 10/10/22 10:30 136 H 18 101/65 97 10/10/22 09:02 97.8 F 145 H 18 94/65 94 L Intake and Output 10/10/22 10/11/22 10/11/22 22:59 06:59 14:59 Intake Total 542.3 250 Balance 542.3 250 Intake: Intake, IV Titration 62.3 250 Amount Amiodarone 450 mg In 250 Dextrose 5% in Water 250 ml @ 0.5 MG/MIN 16.667 mls/hr IV .Q15H [facility] Rx#: [id number] Heparin Sod,Pork in 0.45% 62.3 NaCl 25,000 unit In 0.45 % NaCl 1 250ml.bag @ 11. 423 UNITS/KG/HR 10 mls/hr IV .Q24H [facility] Rx#: [id number] Oral 480 Other: Voiding Method Toilet Toilet # Voids 3 1 # Bowel Movements 2 - Constitutional General appearance: average body habitus, no acute distress - EENT Eyes: anicteric sclerae, EOMI ENT: hearing grossly normal - Respiratory Respiratory: bilateral: CTA - Cardiovascular Rhythm: regular Heart sounds: normal: S1, S2 Abnormal Heart Sounds: no systolic murmur, no diastolic murmur, no rub, no S3 Gallop, no S4 Gallop, no click, no other - Gastrointestinal General gastrointestinal: soft, no tenderness - Integumentary Integumentary: no cyanotic, no rash - Neurologic Neurologic: CNII-XII intact - Musculoskeletal Musculoskeletal: strength equal bilaterally - Psychiatric Psychiatric: A&O x's 3, appropriate affect, intact judgment & insight Results CBC & Chem 7: 10/11/22 08:00 10/11/22 08:00 Labs: Abnormal Lab Results - Last 24 Hours (Table) 10/10/22 Range/Units 15:35 APTT 51.0 H (22.0-30.0) sec Chest x-ray: report reviewed Assessment and Plan (1) Colon adenocarcinoma Status: Acute Priority: High Code(s): C18.9 - MALIGNANT NEOPLASM OF COLON, UNSPECIFIED SNOMED Code(s): 401712674 (2) Atrial flutter with rapid ventricular response Status: Acute Priority: High Code(s): I48.92 - UNSPECIFIED ATRIAL FLUTTER SNOMED Code(s): 4957631 Plan: Metastatic colon adenocarcinoma: -Completed neoadjuvant chemo/RT in 01/2016 and resection with anastomosis on 03/10/16. He completed adjuvant chemo 08/2016. Due to progression started FOLFIRI and completed 12 cycles in 06/2017. Since he has continued observation with rad onc with plan to target lesions that showed growth. Patient has refused any maintenance treatment and continues on observation. -Will schedule clinic f/u upon discharge Atrial flutter/SOB: -Started on heparin and amiodarone -Cardiology following -CTA chest ordered to r/o PE attests: I have performed H&P and developed impression and plan of care for patient, discussed with dictator. I agree with dictated note, documented as a scribe
== END 2022-10-11 15:02 | disposition home or self-care (01) | DRG 309 ==
LOC: EC 15:02 → 3SCARD 16:36
PROVIDERS: ADMIT Internal Medicine; ATTEND Internal Medicine
DX: I48.3 Typical atrial flutter (principal); C78.01 Secondary malignant neoplasm of right lung; C78.02 Secondary malignant neoplasm of left lung; I95.2 Hypotension due to drugs; T46.1X5A Adverse effect of calcium-channel blockers, initial encounter; E03.9 Hypothyroidism, unspecified; M19.90 Unspecified osteoarthritis, unspecified site; Z96.641 Presence of right artificial hip joint; Z79.01 Long term (current) use of anticoagulants; Z28.310 Unvaccinated for COVID-19; Z71.3 Dietary counseling and surveillance; Z79.899 Other long term (current) drug therapy; Z79.890 Hormone replacement therapy; Z79.82 Long term (current) use of aspirin; Z87.891 Personal history of nicotine dependence; Z92.21 Personal history of antineoplastic chemotherapy; Z90.49 Acquired absence of other specified parts of digestive tract; Z85.048 Personal history of other malignant neoplasm of rectum, rectosigmoid junction, and anus
CPT/HCPCS: 36415; 71046; 71275; 80053; 83735; 84443; 84484; 85025; 85610; 85730; 93005; 93306; 96365; 96366; 96368; 99285

== ENCOUNTER 2023-11-26 12:37 | Inpatient (IN) | payer MEDICARE, OTHER ==
--- NOTE | 2023-11-26 13:25 | ED ---
Nausea/Vomiting/Diarrhea HPI - General Source: patient, RN notes reviewed Mode of arrival: wheelchair Limitations: no limitations - History of Present Illness MD complaint: diarrhea <Gisella Morales - Last Filed: 11/26/23 13:43> <Bethany Monique - Last Filed: 12/29/23 17:52> - General Chief complaint: Nausea/Vomiting/Diarrhea Stated complaint: Diarrhea Time Seen by Provider: 11/26/23 13:23 - History of Present Illness Initial comments: Quick Note: This is a 73 year old male who presents to the emergency department for diarrhea. Symptoms started 3 days ago. Denies any abdominal pain, nausea, vomiting, or fevers. He does note feeling very fatigued and somewhat short of breath. Denies any chest pain. 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 States that he has had loose watery stools for the past 3 days. Is concerned for deh ydration. Denies black or bloody stools. He also admits to shortness of breath. Upon evaluation of the patient's vitals he is found to be in A-fib with a rapid rate. He has a history of A-fib. He denies any chest pain. No other alleviating, precipitating or modifying factors (Bethany Monique) - Related Data Home Medications Medication Instructions Recorded Confirmed Cholecalciferol [Vitamin D3 (25 25 mcg PO DAILY 10/09/22 11/26/23 Mcg = 1000 Iu)] Gabapentin [Neurontin] 100 mg PO TID 10/09/22 11/26/23 Levothyroxine Sodium [Synthroid] 25 mcg PO AC-BRKFST 10/09/22 11/26/23 Multivitamins, Thera [Multivitamin 1 tab PO DAILY 11/26/23 11/26/23 (formulary)] Pyridoxine HCl (Vitamin B6) 100 mg PO DAILY 11/26/23 11/26/23 [Vitamin B-6] Terbinafine [LamISIL] 250 mg PO DAILY 11/26/23 11/26/23 Previous Rx's Medication Instructions Recorded Amiodarone [Cordarone] 400 mg PO BID 30 Days #60 tab 12/01/23 Cholestyramine (with Sugar) 4 gm PO BID@1000,1800 15 Days #30 12/01/23 [Questran Packet] packet Diltiazem Oral [Cardizem*] 60 mg PO QID 30 Days #60 tab 12/01/23 Loperamide [Imodium] 2 mg PO QID PRN 15 Days #60 cap 12/01/23 Metoprolol Tartrate [Lopressor] 75 mg PO BID 30 Days #60 tab 12/01/23 Warfarin [Coumadin] 5 mg PO DAILY 30 Days #30 tab 12/01/23 cefUROXime axetiL [Ceftin] 500 mg PO BID 10 Days #20 tab 12/01/23 Allergies Allergy/AdvReac Type Severity Reaction Status Date / Time No Known Allergies Allergy Verified 11/26/23 19:56 Review of Systems ROS Other: All systems not noted in ROS Statement are negative. <Gisella Morales - Last Filed: 11/26/23 13:43> ROS Other: All systems not noted in ROS Statement are negative. <Bethany Monique - Last Filed: 12/29/23 17:52> ROS Statement: Those systems with pertinent positive or pertinent negative responses have been documented in the HPI. Past Medical History Past Medical History: Cancer, Osteoarthritis (OA) History of Any Multi-Drug Resistant Organisms: None Reported Past Surgical History: Appendectomy Additional Past Surgical History / Comment(s): Rectal tumor, right total hip replacement Past Anesthesia/Blood Transfusion Reactions: No Reported Reaction Past Psychological History: No Psychological Hx Reported Smoking Status: Former smoker Past Alcohol Use History: None Reported Past Drug Use History: None Reported <Gisella Morales - Last Filed: 11/26/23 13:43> General Exam Limitations: no limitations <Gisella Morales - Last Filed: 11/26/23 13:43> General appearance: alert, in no apparent distress Head exam: Present: atraumatic, normocephalic, normal inspection Eye exam: Present: normal appearance, PERRL, EOMI. Absent: scleral icterus, conjunctival injection, periorbital swelling ENT exam: Present: normal exam, mucous membranes dry Neck exam: Present: normal inspection. Absent: tenderness, meningismus, lymphadenopathy Respiratory exam: Present: normal lung sounds bilaterally. Absent: respiratory distress, wheezes, rales, rhonchi, stridor Cardiovascular Exam: Present: tachycardia, irregular rhythm, normal heart sounds. Absent: systolic murmur, diastolic murmur, rubs, gallop, clicks GI/Abdominal exam: Present: soft, normal bowel sounds. Absent: distended, tenderness, guarding, rebound, rigid Extremities exam: Present: normal inspection, full ROM, normal capillary refill. Absent: tenderness, pedal edema, joint swelling, calf tenderness Back exam: Present: normal inspection Neurological exam: Present: alert, oriented X3, CN II-XII intact Psychiatric exam: Present: normal affect, normal mood Skin exam: Present: warm, dry, intact, normal color. Absent: rash <Bethany Monique - Last Filed: 12/29/23 17:52> - General Exam Comments Initial Comments: Visual Physical Exam Vital signs reviewed General: Well-appearing, nontoxic, no acute distress. Head: Normocephalic, atraumatic Eyes: PERRLA, EOMI ENT: Airway patent Chest: Nonlabored breathing Skin: No visual rash, normal skin tone Neuro: Alert and oriented 3 Musculoskeletal: No gross abnormalities (Gisella Morales) Course Vital Signs 11/26/23 11/26/23 11/26/23 12:54 15:52 17:37 Temperature 97.8 F Pulse Rate 66 67 134 H Respiratory 18 18 18 Rate Blood Pressure 95/59 103/82 114/79 O2 Sat by Pulse 98 97 98 Oximetry 11/26/23 11/26/23 11/26/23 18:12 19:20 21:07 Temperature 98.9 F 98.6 F Pulse Rate 134 H 130 H 130 H Respiratory 16 18 16 Rate Blood Pressure 113/92 83/70 106/78 O2 Sat by Pulse 98 97 98 Oximetry 11/26/23 22:17 Temperature 98.4 F Pulse Rate 110 H Respiratory 22 Rate Blood Pressure 95/79 O2 Sat by Pulse 99 Oximetry Medical Decision Making <Gisella Morales - Last Filed: 11/26/23 13:43> - Lab Data Result diagrams: 11/30/23 07:18 11/30/23 07:18 <Bethany Monique - Last Filed: 12/29/23 17:52> - Medical Decision Making I performed the QuickNote portion of this chart. Signed Gisella Morales PA-C. (Gisella Morales) Was pt. sent in by a medical professional or institution ([facility] Monterroso, [employer], urgent care, hospital, or prison...) When possible be specific @ -No Did you speak to anyone other than the patient for history (EMS, parent, family, police, friend...)? What history was obtained from this source @ -No Did you review nursing and triage notes (agree or disagree)? Why? @ -I reviewed and agree with nursing and triage notes Were old charts reviewed (outside hosp., previous admission, EMS record, old EKG, old radiological studies, urgent care reports/EKG's, prison records)? Report findings @ -No old charts were reviewed Differential Diagnosis (chest pain, altered mental status, abdominal pain women, abdominal pain men, vaginal bleeding, weakness, fever, dyspnea, syncope, headache, dizziness, GI bleed, back pain, seizure, CVA, palpatations, mental health, musculoskeletal)? @ -Differential Weakness: Hypoglycemia, shock, sepsis, hyponatremia, anemia, infection, VA, ETOH, adverse medicine reaction, overdose, stroke, this is not meant to be an all-inclusive list. EKG interpreted by me (3pts min.). @ -ye and demonstrates atrial flutter with a rate of 130. QRS 113. QTc of 391. No acute ST segment elevations or depressions X-rays interpreted by me (1pt min.). @ -Yes and demonstrates right hilar mass consistent with the patient's history of metastatic cancer CT interpreted by me (1pt min.). @ -None done U/S interpreted by me (1pt. min.). @ -None done What testing was considered but not performed or refused? (CT, X-rays, U/S, labs)? Why? @ -None What meds were considered but not given or refused? Why? @ -None Did you discuss the management of the patient with other professionals (professionals i.e. ALLIE Monterroso, [employer], lab, RT, psych nurse, social psychologist, curriculum specialist, teacher, digital controls technical officer, immigration case manager)? Give summary @ -Spoke with Dr. Hatfield for admission of rapid afib Was smoking cessation discussed for >3mins.? @ -No Was critical care preformed (if so, how long)? @ -Yes, 35 minutes for treatment of rapid A-fib Were there social determinants of health that impacted care today? How? (Homele ssness, low income, unemployed, alcoholism, drug addiction, transportation, low edu. Level, literacy, decrease access to med. care, fci, rehab)? @ -No Was there de-escalation of care discussed even if they declined (Discuss DNR or withdrawal of care, Hospice)? DNR status @ -No What co-morbidities impacted this encounter? (DM, HTN, Smoking, COPD, CAD, Cancer, CVA, ARF, Chemo, Hep., AIDS, mental health diagnosis, sleep apnea, morbid obesity)? @ -A-fib, rectal cancer Was patient admitted / discharged? Hospital course, mention meds given and route, prescriptions, significant lab abnormalities, going to OR and other pertinent info. @ -Upon arrival patient seen and evaluated in room 1. Thorough history and physical exam was performed. Patient placed on continuous pulse ox and cardiac monitoring. Twelve-lead EKG is established. Laboratory studies are conducted. Chest x-ray was performed. Patient continues to have elevated heart rate and therefore he is given Lopressor. Recommended admission for his diarrhea and rapid a flutter. Patient was agreeable to this. Admitted to Dr. Hatfield Undiagnosed new problem with uncertain prognosis? @ -No Drug Therapy requiring intensive monitoring for toxicity (Heparin, Nitro, Insulin, Cardizem)? @ -No Were any procedures done? @ -No Diagnosis/symptom? @ -Acute diarrhea, a flutter with rapid rate Acute, or Chronic, or Acute on Chronic? @ -Acute Uncomplicated (without systemic symptoms) or Complicated (systemic symptoms)? @ -Complicated Side effects of treatment? @ -No Exacerbation, Progression, or Severe Exacerbation? @ -No Poses a threat to life or bodily function? How? (Chest pain, USA, VA, pneumonia, PE, COPD, DKA, ARF, appy, cholecystitis, CVA, Diverticulitis, Homicidal, Suicidal, threat to staff... and all critical care pts) @ -No (Bethany Monique) - Lab Data Lab Results 11/26/23 11/26/23 11/26/23 Range/Units 13:50 13:50 13:50 WBC 5.3 (3.8-10.6) k/uL RBC 4.50 (4.30-5.90) m/uL Hgb 14.4 (13.0-17.5) gm/dL Hct 41.7 (39.0-53.0) % MCV 92.6 (80.0-100.0) fL MCH 32.0 (25.0-35.0) pg MCHC 34.6 (31.0-37.0) g/dL RDW 13.8 (11.5-15.5) % Plt Count 179 (150-450) k/uL MPV 9.5 Neutrophils % 74 % Lymphocytes % 10 % Monocytes % 11 % Eosinophils % 1 % Basophils % 1 % Neutrophils # 3.9 (1.3-7.7) k/uL Lymphocytes # 0.5 L (1.0-4.8) k/uL Monocytes # 0.6 (0-1.0) k/uL Eosinophils # 0.1 (0-0.7) k/uL Basophils # 0.0 (0-0.2) k/uL PT 10.4 (10.0-12.5) sec INR 0.9 (<1.2) APTT 27.8 (22.0-30.0) sec Sodium 135 L (137-145) mmol/L Potassium 3.4 L (3.5-5.1) mmol/L Chloride 106 (98-107) mmol/L Carbon Dioxide 16 L (22-30) mmol/L Anion Gap 13 mmol/L BUN 33 H (9-20) mg/dL Creatinine 1.03 (0.66-1.25) mg/dL Est GFR (CKD-EPI)AfAm 84 (>60 ml/min/1.73 sqM) Est GFR (CKD-EPI)NonAf 73 (>60 ml/min/1.73 sqM) Glucose 213 H (74-99) mg/dL Plasma Lactic Acid Rainer (0.7-2.0) mmol/L Calcium 9.4 (8.4-10.2) mg/dL Phosphorus 3.4 (2.5-4.5) mg/dL Magnesium 2.1 (1.6-2.3) mg/dL Total Bilirubin 0.9 (0.2-1.3) mg/dL AST 32 (17-59) U/L ALT 20 (4-49) U/L Alkaline Phosphatase 76 (38-126) U/L Troponin I (0.000-0.034) ng/mL Total Protein 7.0 (6.3-8.2) g/dL Albumin 4.2 (3.5-5.0) g/dL Urine Color Urine Appearance (Clear) Urine pH (5.0-8.0) Ur Specific [place] (1.001-1.035) Urine Protein (Negative) Urine Glucose (UA) (Negative) Urine Ketones (Negative) Urine Blood (Negative) Urine Nitrite (Negative) Urine Bilirubin (Negative) Urine Urobilinogen (<2.0) mg/dL Ur Leukocyte Esterase (Negative) Urine RBC (0-5) /hpf Urine WBC (0-5) /hpf Ur Squamous Epith Cells (0-4) /hpf Amorphous Sediment (None) /hpf Hyaline Casts (0-2) /lpf Urine Mucus (None) /hpf Stool Occult Blood (Negative) Tiss Transglutamin IgG U/mL Tiss Transglut IgG Intp (Negative) Tiss Transglutamin IgA AI Tis Transglut IgA Intrp (Negative) Anti-Gliadin IgG Deam U/mL Anti-Gliadin IgA Deam U/mL Gliadin (Deam) IgG Int (Negative) Gliadin (Deam) IgA Int (Negative) C. difficile (EIA) Intrp (Negative) Influenza Type A (PCR) (Not Detectd) Influenza Type B (PCR) (Not Detectd) RSV (PCR) (Not Detectd) SARS-CoV-2 (PCR) (Not Detectd) 11/26/23 11/26/23 11/26/23 Range/Units 13:50 13:50 13:50 WBC (3.8-10.6) k/uL RBC (4.30-5.90) m/uL Hgb (13.0-17.5) gm/dL Hct (39.0-53.0) % MCV (80.0-100.0) fL MCH (25.0-35.0) pg MCHC (31.0-37.0) g/dL RDW (11.5-15.5) % Plt Count (150-450) k/uL MPV Neutrophils % % Lymphocytes % % Monocytes % % Eosinophils % % Basophils % % Neutrophils # (1.3-7.7) k/uL Lymphocytes # (1.0-4.8) k/uL Monocytes # (0-1.0) k/uL Eosinophils # (0-0.7) k/uL Basophils # (0-0.2) k/uL PT (10.0-12.5) sec INR (<1.2) APTT (22.0-30.0) sec Sodium (137-145) mmol/L Potassium (3.5-5.1) mmol/L Chloride (98-107) mmol/L Carbon Dioxide (22-30) mmol/L Anion Gap mmol/L BUN (9-20) mg/dL Creatinine (0.66-1.25) mg/dL Est GFR (CKD-EPI)AfAm (>60 ml/min/1.73 sqM) Est GFR (CKD-EPI)NonAf (>60 ml/min/1.73 sqM) Glucose (74-99) mg/dL Plasma Lactic Acid Rainer 1.4 (0.7-2.0) mmol/L Calcium (8.4-10.2) mg/dL Phosphorus (2.5-4.5) mg/dL Magnesium (1.6-2.3) mg/dL Total Bilirubin (0.2-1.3) mg/dL AST (17-59) U/L ALT (4-49) U/L Alkaline Phosphatase (38-126) U/L Troponin I 0.022 (0.000-0.034) ng/mL Total Protein (6.3-8.2) g/dL Albumin (3.5-5.0) g/dL Urine Color Urine Appearance (Clear) Urine pH (5.0-8.0) Ur Specific [place] (1.001-1.035) Urine Protein (Negative) Urine Glucose (UA) (Negative) Urine Ketones (Negative) Urine Blood (Negative) Urine Nitrite (Negative) Urine Bilirubin (Negative) Urine Urobilinogen (<2.0) mg/dL Ur Leukocyte Esterase (Negative) Urine RBC (0-5) /hpf Urine WBC (0-5) /hpf Ur Squamous Epith Cells (0-4) /hpf Amorphous Sediment (None) /hpf Hyaline Casts (0-2) /lpf Urine Mucus (None) /hpf Stool Occult Blood (Negative) Tiss Transglutamin IgG U/mL Tiss Transglut IgG Intp (Negative) Tiss Transglutamin IgA AI Tis Transglut IgA Intrp (Negative) Anti-Gliadin IgG Deam U/mL Anti-Gliadin IgA Deam U/mL Gliadin (Deam) IgG Int (Negative) Gliadin (Deam) IgA Int (Negative) C. difficile (EIA) Intrp (Negative) Influenza Type A (PCR) Not Detected (Not Detectd) Influenza Type B (PCR) Not Detected (Not Detectd) RSV (PCR) Not Detected (Not Detectd) SARS-CoV-2 (PCR) Not Detected (Not Detectd) 11/26/23 11/26/23 11/26/23 Range/Units 21:45 21:48 23:10 WBC (3.8-10.6) k/uL RBC (4.30-5.90) m/uL Hgb (13.0-17.5) gm/dL Hct (39.0-53.0) % MCV (80.0-100.0) fL MCH (25.0-35.0) pg MCHC (31.0-37.0) g/dL RDW (11.5-15.5) % Plt Count (150-450) k/uL MPV Neutrophils % % Lymphocytes % % Monocytes % % Eosinophils % % Basophils % % Neutrophils # (1.3-7.7) k/uL Lymphocytes # (1.0-4.8) k/uL Monocytes # (0-1.0) k/uL Eosinophils # (0-0.7) k/uL Basophils # (0-0.2) k/uL PT (10.0-12.5) sec INR (<1.2) APTT (22.0-30.0) sec Sodium (137-145) mmol/L Potassium (3.5-5.1) mmol/L Chloride (98-107) mmol/L Carbon Dioxide (22-30) mmol/L Anion Gap mmol/L BUN (9-20) mg/dL Creatinine (0.66-1.25) mg/dL Est GFR (CKD-EPI)AfAm (>60 ml/min/1.73 sqM) Est GFR (CKD-EPI)NonAf (>60 ml/min/1.73 sqM) Glucose (74-99) mg/dL Plasma Lactic Acid Rainer (0.7-2.0) mmol/L Calcium (8.4-10.2) mg/dL Phosphorus (2.5-4.5) mg/dL Magnesium (1.6-2.3) mg/dL Total Bilirubin (0.2-1.3) mg/dL AST (17-59) U/L ALT (4-49) U/L Alkaline Phosphatase (38-126) U/L Troponin I (0.000-0.034) ng/mL Total Protein (6.3-8.2) g/dL Albumin (3.5-5.0) g/dL Urine Color Yellow Urine Appearance Clear (Clear) Urine pH 6.0 (5.0-8.0) Ur Specific [place] 1.029 (1.001-1.035) Urine Protein 1+ H (Negative) Urine Glucose (UA) Negative (Negative) Urine Ketones Negative (Negative) Urine Blood Negative (Negative) Urine Nitrite Negative (Negative) Urine Bilirubin Negative (Negative) Urine Urobilinogen <2.0 (<2.0) mg/dL Ur Leukocyte Esterase Negative (Negative) Urine RBC 2 (0-5) /hpf Urine WBC 2 (0-5) /hpf Ur Squamous Epith Cells <1 (0-4) /hpf Amorphous Sediment Rare H (None) /hpf Hyaline Casts 100 H (0-2) /lpf Urine Mucus Many H (None) /hpf Stool Occult Blood Negative (Negative) Tiss Transglutamin IgG U/mL Tiss Transglut IgG Intp (Negative) Tiss Transglutamin IgA AI Tis Transglut IgA Intrp (Negative) Anti-Gliadin IgG Deam U/mL Anti-Gliadin IgA Deam U/mL Gliadin (Deam) IgG Int (Negative) Gliadin (Deam) IgA Int (Negative) C. difficile (EIA) Intrp Negative (Negative) Influenza Type A (PCR) (Not Detectd) Influenza Type B (PCR) (Not Detectd) RSV (PCR) (Not Detectd) SARS-CoV-2 (PCR) (Not Detectd) 11/26/23 11/26/23 11/27/23 Range/Units 23:23 23:23 05:54 WBC 4.5 (3.8-10.6) k/uL RBC 3.92 L (4.30-5.90) m/uL Hgb 12.7 L (13.0-17.5) gm/dL Hct 37.4 L (39.0-53.0) % MCV 95.3 (80.0-100.0) fL MCH 32.4 (25.0-35.0) pg MCHC 34.0 (31.0-37.0) g/dL RDW 13.9 (11.5-15.5) % Plt Count 156 (150-450) k/uL MPV 9.1 Neutrophils % 70 % Lymphocytes % 10 % Monocytes % 15 % Eosinophils % 1 % Basophils % 1 % Neutrophils # 3.2 (1.3-7.7) k/uL Lymphocytes # 0.5 L (1.0-4.8) k/uL Monocytes # 0.7 (0-1.0) k/uL Eosinophils # 0.1 (0-0.7) k/uL Basophils # 0.0 (0-0.2) k/uL PT 11.1 (10.0-12.5) sec INR 1.0 (<1.2) APTT 28.0 (22.0-30.0) sec Sodium (137-145) mmol/L Potassium (3.5-5.1) mmol/L Chloride (98-107) mmol/L Carbon Dioxide (22-30) mmol/L Anion Gap mmol/L BUN (9-20) mg/dL Creatinine (0.66-1.25) mg/dL Est GFR (CKD-EPI)AfAm (>60 ml/min/1.73 sqM) Est GFR (CKD-EPI)NonAf (>60 ml/min/1.73 sqM) Glucose (74-99) mg/dL Plasma Lactic Acid Rainer (0.7-2.0) mmol/L Calcium (8.4-10.2) mg/dL Phosphorus (2.5-4.5) mg/dL Magnesium (1.6-2.3) mg/dL Total Bilirubin (0.2-1.3) mg/dL AST (17-59) U/L ALT (4-49) U/L Alkaline Phosphatase (38-126) U/L Troponin I (0.000-0.034) ng/mL Total Protein (6.3-8.2) g/dL Albumin (3.5-5.0) g/dL Urine Color Urine Appearance (Clear) Urine pH (5.0-8.0) Ur Specific [place] (1.001-1.035) Urine Protein (Negative) Urine Glucose (UA) (Negative) Urine Ketones (Negative) Urine Blood (Negative) Urine Nitrite (Negative) Urine Bilirubin (Negative) Urine Urobilinogen (<2.0) mg/dL Ur Leukocyte Esterase (Negative) Urine RBC (0-5) /hpf Urine WBC (0-5) /hpf Ur Squamous Epith Cells (0-4) /hpf Amorphous Sediment (None) /hpf Hyaline Casts (0-2) /lpf Urine Mucus (None) /hpf Stool Occult Blood (Negative) Tiss Transglutamin IgG <0.8 U/mL Tiss Transglut IgG Intp Negative (Negative) Tiss Transglutamin IgA <0.5 AI Tis Transglut IgA Intrp Negative (Negative) Anti-Gliadin IgG Deam <0.4 U/mL Anti-Gliadin IgA Deam <0.5 U/mL Gliadin (Deam) IgG Int Negative (Negative) Gliadin (Deam) IgA Int Negative (Negative) C. difficile (EIA) Intrp (Negative) Influenza Type A (PCR) (Not Detectd) Influenza Type B (PCR) (Not Detectd) RSV (PCR) (Not Detectd) SARS-CoV-2 (PCR) (Not Detectd) Disposition <Gisella Morales - Last Filed: 11/26/23 13:43> Is patient prescribed a controlled substance at d/c from ED?: No Time of Disposition: 21:08 Decision to Admit Reason: Admit from EC Decision Date: 11/26/23 Decision Time: 21:08 <Bethany Monique - Last Filed: 12/29/23 17:52> Clinical Impression: Diarrhea, Atrial fibrillation with RVR Disposition: ADMITTED IP TO THIS HOSP Condition: Stable
[2023-11-26 14:02] LABS: Basophils % (A) 1 %; Eosinophils # (A) 0.1 k/uL (0-0.7); Eosinophils % (A) 1 %; HCT 41.7 % (39.0-53.0); HGB 14.4 gm/dL (13.0-17.5); Lymphocytes # (A) 0.5 k/uL (1.0-4.8); Lymphocytes % (A) 10 %; MCHC 34.6 g/dL (31.0-37.0); MCV 92.6 fL (80.0-100.0); Mean Platelet Volume 9.5; Monocytes # (A) 0.6 k/uL (0-1.0); Monocytes % (A) 11 %; Neutrophils # (A) 3.9 k/uL (1.3-7.7); Neutrophils % (A) 74 %; Platelet Count 179 k/uL (150-450); RDW 13.8 % (11.5-15.5); WBC 5.3 k/uL (3.8-10.6)
[2023-11-26 14:13] LABS: INR 0.9 (<1.2); Partial Thromboplastin Time 27.8 sec (22.0-30.0); Prothrombin Time 10.4 sec (10.0-12.5)
[2023-11-26 14:15] LABS: ALT 20 U/L (4-49); AST 32 U/L (17-59); African American GFR (CKD) 84 (>60 ml/min/1.73 sqM); Albumin 4.2 g/dL (3.5-5.0); Alkaline Phosphatase 76 U/L (38-126); Anion Gap 13 mmol/L; Blood Urea Nitrogen 33 mg/dL (9-20); Calcium 9.4 mg/dL (8.4-10.2); Carbon Dioxide 16 mmol/L (22-30); Chloride 106 mmol/L (98-107); Glucose 213 mg/dL (74-99); Magnesium 2.1 mg/dL (1.6-2.3); Non-African American GFR(CKD) 73 (>60 ml/min/1.73 sqM); Phosphorus 3.4 mg/dL (2.5-4.5); Potassium 3.4 mmol/L (3.5-5.1); Sodium 135 mmol/L (137-145); Total Bilirubin 0.9 mg/dL (0.2-1.3)
--- NOTE | 2023-11-26 14:28 | XR ---
EXAMINATION TYPE: XR chest 2V DATE OF EXAM: 11/26/2023 COMPARISON: 10/09/2022 HISTORY: Shortness of breath TECHNIQUE: Frontal and lateral views of the chest are obtained. FINDINGS: Scattered senescent parenchymal changes noted. Hyperinflation compatible with COPD. Right hilar mass and left hilar nodule persists without significant change. Underlying malignancy is not excluded. No new nodules or infiltrates appreciated. Heart size is stable. Mediastinal structures are stable and grossly unremarkable. No evidence for hilar prominence. Degenerative changes dorsal spine. IMPRESSION: 1. Right hilar mass and left hilar nodule persists without significant change. Underlying malignancy is not excluded. No new nodules or infiltrates appreciated.
[2023-11-26] MEDS: DIPHENOX-ATROP 2.5-0.025 MG 1 EACH TAB PO STA (17:35)
[2023-11-26] MEDS: SODIUM CHLORIDE 0.9% 1,000 ML IV ONE ×2 (17:36→20:59)
[2023-11-26] MEDS: SODIUM CHLORIDE 0.9% 1,000 ML IV STA (21:00)
[2023-11-26] MEDS ORDERED: NALOXONE 0.4 MG/ML 1 ML VIAL IV PRN (21:06)
[2023-11-26] MEDS: GABAPENTIN 100 MG CAP PO SCH (21:22)
[2023-11-26] MEDS: METOPROLOL TARTRATE 25 MG TAB PO SCH (21:23)
[2023-11-26 22:31] LABS: Amorphous Sediment,Urine Rare /hpf; Appearance,Urine Clear (Clear); Bilirubin,Urine Negative (Negative); Blood,Urine Negative (Negative); Color,Urine Yellow; Glucose,Urine (UA) Negative (Negative); Hyaline Casts,Urine 100 /lpf (0-2); Ketones,Urine Negative (Negative); Leukocyte Esterase,Urine Negative (Negative); Mucus,Urine Many /hpf; Nitrite,Urine Negative (Negative); Protein,Urine 1+ (Negative); RBC,Urine 2 /hpf (0-5); Specific Gravity,Urine 1.029 (1.001-1.035); Squamous Epithelial Cell,Urine <1 /hpf (0-4); Urobilinogen,Urine <2.0 mg/dL (<2.0); WBC,Urine 2 /hpf (0-5)
[2023-11-26] MEDS ORDERED: HEPARIN SODIUM 1,000 UN/ML (10ML VL) IV PRN (23:10)
[2023-11-26] MEDS ORDERED: Potassium Replacement Protocol 1 EACH MISC MISCELLANE PRN (23:12)
[2023-11-26] MEDS: POTASSIUM CHLORIDE ER 20 MEQ TAB.ER PO SCH (23:49)
[2023-11-26] MEDS: HEPARIN SODIUM 1,000 UN/ML (10ML VL) IV ONE (23:51)
[2023-11-27] MEDS: HEPARIN SOD,PORK IN 0.45% NACL 25,000 UNIT in 0.45% NACL 1 250ML.BAG IV SCH (00:25)
[2023-11-27 00:38] LABS: Basophils % (A) 1 %; Eosinophils # (A) 0.1 k/uL (0-0.7); Eosinophils % (A) 1 %; HCT 37.4 % (39.0-53.0); HGB 12.7 gm/dL (13.0-17.5); Lymphocytes # (A) 0.5 k/uL (1.0-4.8); Lymphocytes % (A) 10 %; MCH 32.4 pg (25.0-35.0); MCV 95.3 fL (80.0-100.0); Mean Platelet Volume 9.1; Monocytes # (A) 0.7 k/uL (0-1.0); Monocytes % (A) 15 %; Neutrophils # (A) 3.2 k/uL (1.3-7.7); Neutrophils % (A) 70 %; Platelet Count 156 k/uL (150-450); RBC 3.92 m/uL (4.30-5.90); RDW 13.9 % (11.5-15.5); WBC 4.5 k/uL (3.8-10.6)
[2023-11-27] MEDS: SODIUM CHLORIDE 0.9% 500 ML 500 ML IV ONE ×2 (00:40→17:49)
[2023-11-27] MEDS: AMIODARONE 360 MG in DEXTROSE 5% IN WATER 200 ML IV ONE (00:47)
[2023-11-27 00:56] LABS: Prothrombin Time 11.1 sec (10.0-12.5)
[2023-11-27] MEDS: DILTIAZEM 125 MG in SODIUM CHLORIDE 0.9% 100 ML IV SCH (05:00)
[2023-11-27] MEDS: AMIODARONE 450 MG in DEXTROSE 5% IN WATER 250 ML IV SCH (06:31)
[2023-11-27] MEDS: LEVOTHYROXINE 25 MCG TAB PO SCH (06:31)
[2023-11-27 07:32] LABS: Basophils % (A) 0 %; Eosinophils # (A) 0.1 k/uL (0-0.7); Eosinophils % (A) 1 %; HCT 35.7 % (39.0-53.0); HGB 11.6 gm/dL (13.0-17.5); Lymphocytes # (A) 0.4 k/uL (1.0-4.8); Lymphocytes % (A) 8 %; MCH 30.8 pg (25.0-35.0); MCHC 32.6 g/dL (31.0-37.0); MCV 94.5 fL (80.0-100.0); Mean Platelet Volume 9.6; Monocytes # (A) 0.5 k/uL (0-1.0); Monocytes % (A) 10 %; Neutrophils # (A) 3.5 k/uL (1.3-7.7); Neutrophils % (A) 77 %; Platelet Count 156 k/uL (150-450); RBC 3.78 m/uL (4.30-5.90); WBC 4.5 k/uL (3.8-10.6)
[2023-11-27 07:40] LABS: Partial Thromboplastin Time 38.3 sec (22.0-30.0); Prothrombin Time 10.7 sec (10.0-12.5)
[2023-11-27 08:46] LABS: African American GFR (CKD) >90 (>60 ml/min/1.73 sqM); Anion Gap 8 mmol/L; Blood Urea Nitrogen 28 mg/dL (9-20); Calcium 8.2 mg/dL (8.4-10.2); Carbon Dioxide 16 mmol/L (22-30); Chloride 110 mmol/L (98-107); Glucose 209 mg/dL (74-99); Non-African American GFR(CKD) 89 (>60 ml/min/1.73 sqM); Potassium 3.3 mmol/L (3.5-5.1); Sodium 134 mmol/L (137-145)
[2023-11-27] MEDS: HEPARIN SODIUM 1,000 UN/ML (10ML VL) IVP ONE ×2 (08:47→20:46)
[2023-11-27] MEDS ORDERED: Potassium Replacement Protocol 1 EACH MISC MISCELLANE PRN (10:01)
--- NOTE | 2023-11-27 10:18 | P.HPIM ---
History of Present Illness H&P Date: 11/27/23 Rao Calix, is a 73-year-old male who presented to [facility] emergency room with a chief complaint of diarrhea. He was evaluated in the emergency room vital examination on presentation revealed a temperature of 97.8 pulse 66 respiration 18 blood pressure 95/59 pulse ox 98% on room air Laboratory data reveals a white blood count of 5.3 hemoglobin 14.4 platelet count 179 sodium 135 potassium 3.4 chloride 106 CO2 16 BUN 33 creatinine 1.03 Testing in the emergency room revealed EKG revealed atrial flutter with rapid ventricular response, chest x-ray revealed right hilar mass and left hilar nodule without significant change from prior exam in September 2022 Patient was admitted to medical floor for further evaluation and treatment Past medical history is significant for 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 at this time patient is resting comfortably in bed. Patient reports improvement with diarrhea. Awaiting cardiology and GI input. Patient denies chest pain. Patient denies any urinary burning or frequency Past Medical History Past Medical History: Atrial Fibrillation, Cancer, Osteoarthritis (OA), Renal Disease Additional Past Medical History / Comment(s): Stage 4 colorectal cancer, last chemo 2017, was borderline diabetic controlled by weight loss, kidney stones passed on their own History of Any Multi-Drug Resistant Organisms: None Reported Past Surgical History: Appendectomy Additional Past Surgical History / Comment(s): Rectal tumor, right total hip replacement Past Anesthesia/Blood Transfusion Reactions: No Reported Reaction Past Psychological History: No Psychological Hx Reported Smoking Status: Former smoker Past Alcohol Use History: None Reported Past Drug Use History: None Reported Medications and Allergies Home Medications Medication Instructions Recorded Confirmed Type Ascorbic Acid [Vitamin C] 5,000 mg PO TID 10/09/22 11/26/23 History Cholecalciferol [Vitamin D3 (25 25 mcg PO DAILY 10/09/22 11/26/23 History Mcg = 1000 Iu)] Gabapentin [Neurontin] 100 mg PO TID 10/09/22 11/26/23 History Levothyroxine Sodium [Synthroid] 25 mcg PO AC-BRKFST 10/09/22 11/26/23 History Zinc Gluconate [Zinc] 50 mg PO DAILY 10/09/22 11/26/23 History Ageless Male For Men 1 tab PO DAILY 11/26/23 11/26/23 History Metoprolol Tartrate [Lopressor] 25 mg PO BID 11/26/23 11/26/23 History Multivitamins, Thera [Multivitamin 1 tab PO DAILY 11/26/23 11/26/23 History (formulary)] Pyridoxine HCl (Vitamin B6) 100 mg PO DAILY 11/26/23 11/26/23 History [Vitamin B-6] Terbinafine [LamISIL] 250 mg PO DAILY 11/26/23 11/26/23 History Vitamin E(Unknown Dose) 1 cap PO DAILY 11/26/23 11/26/23 History Allergies Allergy/AdvReac Type Severity Reaction Status Date / Time No Known Allergies Allergy Verified 11/26/23 19:56 Physical Exam Vitals: Vital Signs Temp Pulse Pulse Resp BP BP Pulse Ox 11/27/23 04:25 97.9 F 132 H 17 87/50 97 11/27/23 01:30 136 H 17 118/56 94 L 11/27/23 01:03 139 H 81/53 98 11/27/23 00:02 135 H 72/48 97 11/26/23 23:40 98 F 138 H 19 84/61 99 11/26/23 22:30 97.9 F 139 H 18 93/59 98 11/26/23 22:17 98.4 F 110 H 22 95/79 99 11/26/23 21:07 130 H 16 106/78 98 11/26/23 19:20 98.6 F 130 H 18 83/70 97 11/26/23 18:12 98.9 F 134 H 16 113/92 98 11/26/23 17:37 134 H 18 114/79 98 11/26/23 15:52 67 18 103/82 97 11/26/23 12:54 97.8 F 66 18 95/59 98 Intake and Output 11/26/23 11/27/23 11/27/23 22:59 06:59 14:59 Intake Total 20 179.375 Output Total 250 Balance -250 20 179.375 Intake: IV 20 Invasive Line 2 10 Invasive Line 3 10 Intake, IV Titration 79.375 Amount Heparin Sod,Pork in 0.45% 79.375 NaCl 25,000 unit In 0.45 % NaCl 1 250ml.bag @ 10.5 UNITS/KG/HR 10.002 mls/ hr IV .Q24H [facility] Rx#: [id number] Oral 100 Output: Urine 250 Other: Voiding Method Bedside Commode Urinal # Voids 1 # Bowel Movements 3 1 Weight 95.254 kg 88.9 kg In general patient is alert and oriented x 3 in no distress HEENT head normocephalic and atraumatic Neck is supple no JVD no goiter no lymphadenopathy no carotid bruit Chest examination is clear to auscultation no crackles no wheezing Cardiac exam reveals regular heart sounds S1 and S2 no gallops no murmurs Abdomen is soft nontender no organomegaly with normal bowel sounds Extremity exam reveals no edema no cyanosis or clubbing Neurological examination reveals no gross focal deficits Results CBC & Chem 7: 11/27/23 07:19 11/27/23 07:19 Labs: Abnormal Lab Results - Last 24 Hours (Table) 11/26/23 11/26/23 11/26/23 Range/Units 13:50 13:50 21:48 RBC (4.30-5.90) m/uL Hgb (13.0-17.5) gm/dL Hct (39.0-53.0) % Lymphocytes # 0.5 L (1.0-4.8) k/uL APTT (22.0-30.0) sec Sodium 135 L (137-145) mmol/L Potassium 3.4 L (3.5-5.1) mmol/L Chloride (98-107) mmol/L Carbon Dioxide 16 L (22-30) mmol/L BUN 33 H (9-20) mg/dL Glucose 213 H (74-99) mg/dL Calcium (8.4-10.2) mg/dL Urine Protein 1+ H (Negative) Amorphous Sediment Rare H (None) /hpf Hyaline Casts 100 H (0-2) /lpf Urine Mucus Many H (None) /hpf 11/26/23 11/27/23 11/27/23 Range/Units 23:23 07:19 07:19 RBC 3.92 L 3.78 L (4.30-5.90) m/uL Hgb 12.7 L 11.6 L (13.0-17.5) gm/dL Hct 37.4 L 35.7 L (39.0-53.0) % Lymphocytes # 0.5 L 0.4 L (1.0-4.8) k/uL APTT (22.0-30.0) sec Sodium 134 L (137-145) mmol/L Potassium 3.3 L (3.5-5.1) mmol/L Chloride 110 H (98-107) mmol/L Carbon Dioxide 16 L (22-30) mmol/L BUN 28 H (9-20) mg/dL Glucose 209 H (74-99) mg/dL Calcium 8.2 L (8.4-10.2) mg/dL Urine Protein (Negative) Amorphous Sediment (None) /hpf Hyaline Casts (0-2) /lpf Urine Mucus (None) /hpf 11/26/ Range/Units 07:19 RBC (4.30-5.90) m/uL Hgb (13.0-17.5) gm/dL Hct (39.0-53.0) % Lymphocytes # (1.0-4.8) k/uL APTT 38.3 H (22.0-30.0) sec Sodium (137-145) mmol/L Potassium (3.5-5.1) mmol/L Chloride (98-107) mmol/L Carbon Dioxide (22-30) mmol/L BUN (9-20) mg/dL Glucose (74-99) mg/dL Calcium (8.4-10.2) mg/dL Urine Protein (Negative) Amorphous Sediment (None) /hpf Hyaline Casts (0-2) /lpf Urine Mucus (None) /hpf Thrombosis Risk Factor Assmnt - Choose All That Apply Any of the Below Risk Factors Present?: Yes Each Factor Represents 1 point: Obesity (BMI >25) Other Risk Factors: Yes Each Risk Factor Represents 2 Points: Age 61-74 years Other congenital or acquired thrombophilia - If yes, enter type in comment: No Thrombosis Risk Factor Assessment Total Risk Factor Score: 3 Thrombosis Risk Factor Assessment Level: Moderate Risk Assessment and Plan Plan: Severe diarrhea Dehydration with acute kidney injury Electrolyte imbalance with hypokalemia Atrial fibrillation with rapid ventricular response Underlying 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 difficile testing was negative in the emergency room Home medications reviewed and reordered Will follow closely
[2023-11-27] MEDS: POTASSIUM CHLORIDE ER 20 MEQ TAB.ER PO SCH (16:13)
[2023-11-27] MEDS: METOPROLOL TARTRATE 25 MG TAB PO STA (17:49)
[2023-11-27] MEDS: MAGNESIUM SULFATE-D5W PMX 1 GM in DEXTROSE/WATER 1 100ML.BAG IVPB SCH (17:49)
[2023-11-27] MEDS: CHOLESTYRAMINE (WITH SUGAR) 4 GM PACKET PO SCH (17:49)
[2023-11-27] MEDS: WARFARIN 5 MG TAB PO SCH (17:58)
[2023-11-27 18:46] LABS: NT-Pro-B-Type Natriuretic Pept 2840 pg/mL
[2023-11-27] MEDS: METOPROLOL TARTRATE 50 MG TAB PO SCH (20:18)
[2023-11-27] MEDS ORDERED: APIXABAN 5 MG TAB PO SCH (21:00)
--- NOTE | 2023-11-27 21:53 | P.CRDCN ---
History of Present Illness Consult date: 11/27/23 History of present illness: HISTORY OF PRESENTING ILLNESS Patient is a 73-year-old male who presented to the hospital because of the complaint of diarrhea. On admission he was noticed to have atrial fibrillation with RVR for which cardiology was consulted. 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 Patient is not on any chemotherapy and is not willing to get it. He reports that he has been using high doses of vitamin C at home with appropriate response. He otherwise denies any chest pain chest pressure. He reports that he has had atrial fibrillation in the past as well and is not on any anticoagulation. Admission ECG showed atrial fibrillation with RVR, heart rate [address] changes. Labs shows hemoglobin 9.6, BUN 28, creatinine 0.8 REVIEW OF SYSTEMS 14 point review of system is negative except what is mentioned above in HPI. PHYSICAL EXAMINATION Vital signs reviewed. Head: Normocephalic. Eyes: Sclerae nonicteric. Neck: Brisk carotid upstroke, no jugular venous distention. Lungs: Clear to auscultation. Heart: irregular pulse, S1-S2, no S3,mild murmur or rub. Abdomen: Soft nontender, positive bowel sounds. Extremities: No edema, intact distal pulses. Neuro: Alert, oritented, no focal deficits. Detailed neuro exam was not performed. ASSESSMENT A-fib with RVR Colorectal cancer with metastasis to lung, not on any chemotherapy at present Severe diarrhea Electrolyte imalance hypokalemia Hypothyroidism Prior cardiac testing Echo September 2022 shows a borderline normal LVEF of 50%, mild MR mild TR PLAN Patient is not willing to be started on NOACs due to high cost. Will start warfarin Discontinue IV heparin drip Monitor Mg and K levels Continue amiodarone and increase metoprolol to 50 mg twice daily Obtain a limited echocardiogram to assess for LVEF Chalo Childers MD, FACC, RPVI Thank you for allowing [facility] to participate in this patient's care. Feel free to reach out in case of any followup questions. Past Medical History Past Medical History: Atrial Fibrillation, Cancer, Osteoarthritis (OA), Renal Disease Additional Past Medical History / Comment(s): Stage 4 colorectal cancer, last chemo 2017, was borderline diabetic controlled by weight loss, kidney stones passed on their own History of Any Multi-Drug Resistant Organisms: None Reported Past Surgical History: Appendectomy Additional Past Surgical History / Comment(s): Rectal tumor, right total hip replacement Past Anesthesia/Blood Transfusion Reactions: No Reported Reaction Past Psychological History: No Psychological Hx Reported Smoking Status: Former smoker Past Alcohol Use History: None Reported Past Drug Use History: None Reported Medications and Allergies Home Medications Medication Instructions Recorded Confirmed Type Ascorbic Acid [Vitamin C] 5,000 mg PO TID 10/09/22 11/26/23 History Cholecalciferol [Vitamin D3 (25 25 mcg PO DAILY 10/09/22 11/26/23 History Mcg = 1000 Iu)] Gabapentin [Neurontin] 100 mg PO TID 10/09/22 11/26/23 History Levothyroxine Sodium [Synthroid] 25 mcg PO AC-BRKFST 10/09/22 11/26/23 History Zinc Gluconate [Zinc] 50 mg PO DAILY 10/09/22 11/26/23 History Ageless Male For Men 1 tab PO DAILY 11/26/23 11/26/23 History Metoprolol Tartrate [Lopressor] 25 mg PO BID 11/26/23 11/26/23 History Multivitamins, Thera [Multivitamin 1 tab PO DAILY 11/26/23 11/26/23 History (formulary)] Pyridoxine HCl (Vitamin B6) 100 mg PO DAILY 11/26/23 11/26/23 History [Vitamin B-6] Terbinafine [LamISIL] 250 mg PO DAILY 11/26/23 11/26/23 History Vitamin E(Unknown Dose) 1 cap PO DAILY 11/26/23 11/26/23 History Allergies Allergy/AdvReac Type Severity Reaction Status Date / Time No Known Allergies Allergy Verified 11/26/23 19:56 Physical Exam Vitals: Vital Signs Temp Pulse Pulse Resp BP BP BP 11/27/23 19:56 98.2 F 122 H 16 100/65 11/27/23 16:00 98.3 F 126 H 18 91/58 11/27/23 14:00 109 H 18 11/27/23 12:00 98.0 F 109 H 18 98/61 11/27/23 08:00 98.1 F 122 H 18 100/62 11/27/23 04:25 97.9 F 132 H 17 87/50 11/27/23 01:30 136 H 17 118/56 11/27/23 01:03 139 H 81/53 11/27/23 00:02 135 H 72/48 11/26/23 23:40 98 F 138 H 19 84/61 11/26/23 22:30 97.9 F 139 H 18 93/59 11/26/23 22:17 98.4 F 110 H 22 95/79 Pulse Ox 11/27/23 19:56 98 11/27/23 16:00 96 11/27/23 14:00 11/27/23 12:00 98 11/27/23 08:00 96 11/27/23 04:25 97 11/27/23 01:30 94 L 11/27/23 01:03 98 11/27/23 00:02 97 11/26/23 23:40 99 11/26/23 22:30 98 11/26/23 22:17 99 Intake and Output 11/27/23 11/27/23 11/27/23 06:59 14:59 22:59 Intake Total 20 307.375 146.774 Balance 20 307.375 146.774 Intake: IV 20 10 Invasive Line 2 10 Invasive Line 3 10 10 Intake, IV Titration 79.375 96.774 Amount Heparin Sod,Pork in 0.45% 79.375 96.774 NaCl 25,000 unit In 0.45 % NaCl 1 250ml.bag @ 10.5 UNITS/KG/HR 10.002 mls/ hr IV .Q24H [facility] Rx#: [id number] Oral 218 50 Other: Voiding Method Bedside Commode Bedside Commode Urinal Urinal # Voids 1 1 # Bowel Movements 1 1 1 Weight 88.9 kg Results 11/27/23 07:19 11/27/23 07:19 Cardiac Enzymes 11/27/23 Range/Units 17:34 Troponin I <0.012 (0.000-0.034) ng/mL Coagulation 11/26/23 11/27/23 11/27/23 Range/Units 23:23 07:19 15:50 PT 11.1 10.7 (10.0-12.5) sec APTT 28.0 38.3 H 43.3 H (22.0-30.0) sec CBC 11/26/23 11/27/23 Range/Units 23:23 07:19 WBC 4.5 4.5 (3.8-10.6) k/uL RBC 3.92 L 3.78 L (4.30-5.90) m/uL Hgb 12.7 L 11.6 L (13.0-17.5) gm/dL Hct 37.4 L 35.7 L (39.0-53.0) % Plt Count 156 156 (150-450) k/uL Comprehensive Metabolic Panel 11/27/23 Range/Units 07:19 Sodium 134 L (137-145) mmol/L Potassium 3.3 L (3.5-5.1) mmol/L Chloride 110 H (98-107) mmol/L Carbon Dioxide 16 L (22-30) mmol/L BUN 28 H (9-20) mg/dL Creatinine 0.81 (0.66-1.25) mg/dL Glucose 209 H (74-99) mg/dL Calcium 8.2 L (8.4-10.2) mg/dL Current Medications Generic Name Dose Route Start Last Admin Trade Name Freq PRN Reason Stop Dose Admin Cholestyramine Resin 4 gm 11/27/23 18:00 11/27/23 17:49 Cholestyramine (With Sugar) 4 Gm Packet PO 4 gm BID@1000,1800 [facility] Administration Gabapentin 100 mg 11/26/23 22:00 11/27/23 20:18 Gabapentin 100 Mg Cap PO 100 mg TID [facility] Administration Amiodarone HCl 450 mg/ 250 mls @ 16.667 mls/hr 11/27/23 07:00 11/27/23 06:31 Dextrose/Water IV 11/28/23 00:59 0.5 mg/min .Q15H [facility] 16.667 mls/hr Administration Protocol 0.5 MG/MIN Levothyroxine Sodium 25 mcg 11/27/23 07:30 11/27/23 06:31 Levothyroxine 25 Mcg Tab PO 25 mcg AC-BRKFST [facility] Administration Metoprolol Tartrate 50 mg 11/27/23 21:00 11/27/23 20:18 Metoprolol Tartrate 50 Mg Tab PO 50 mg BID [facility] Administration Miscellaneous Information 1 each 11/27/23 10:01 Potassium Replacement Protocol 1 Each Misc MISCELLANE DAILY PRN Per Protocol Protocol Miscellaneous Information 0 each 11/27/23 17:33 Warfarin Per Pharmacy MISCELLANE DIRECTED PRN PER PROTOCOL Multivitamins 1 each 11/28/23 09:00 Multivitamins, Thera 1 Each Tab PO DAILY [facility] Naloxone HCl 0.2 mg 11/26/23 21:06 Naloxone 0.4 Mg/Ml 1 Ml Vial IV Q2M PRN Opioid Reversal Intake and Output 11/27/23 11/27/23 11/27/23 06:59 14:59 22:59 Intake Total 20 307.375 146.774 Balance 20 307.375 146.774 Intake: IV 20 10 Invasive Line 2 10 Invasive Line 3 10 10 Intake, IV Titration 79.375 96.774 Amount Heparin Sod,Pork in 0.45% 79.375 96.774 NaCl 25,000 unit In 0.45 % NaCl 1 250ml.bag @ 10.5 UNITS/KG/HR 10.002 mls/ hr IV .Q24H [facility] Rx#: [id number] Oral 218 50 Other: Voiding Method Bedside Commode Bedside Commode Urinal Urinal # Voids 1 1 # Bowel Movements 1 1 1 Weight 88.9 kg 11/27/23 07:19 11/27/23 07:19
--- NOTE | 2023-11-27 22:19 | P.CONS ---
History of Present Illness - Reason for Consult Consult date: 11/27/23 Diarrhea Requesting physician: Kiesha Hatfield - Chief Complaint Diarrhea x few days - History of Present Illness Patient is a 73-year-old male with a past medical history significant for atrial fibrillation osteoarthritis stage IV colorectal cancer and renal insufficiency patient presenting to the ER for evaluation of diarrhea and this patient symptom has been going on for about 3 days patient denies having any nausea or vomiting or abdominal pain patient mention he did have multiple episodes of loose stools almost 10 to 12/day. Denies any blood or mucus in the stool has been feeling fatigued and somewhat short of breath with the symptoms the patient presented to hospital on arrival to the ER patient was afebrile and no fever have been recorded subsequently patient was tachycardic mildly hypotensive but not requiring any pressor support, patient was not hypoxic either patient did have white count of 4.5 BUN was mildly elevated creatinine was normal liver isms are normal urine has been negative influenza RSV COVID testing was negative stool for C. difficile EIA was negative patient did have a chest x-ray right hilar mass and left hilar nodule persist no new nodules seen patient has been admitted to hospital infectious disease was consulted because of his diarrhea patient did not recall taking any antibiotic recently Review of Systems Positive point and negatives has been mentioned in the HPI, complete review of systems was performed and all other systems are negative Past Medical History Past Medical History: Atrial Fibrillation, Cancer, Osteoarthritis (OA), Renal Disease Additional Past Medical History / Comment(s): Stage 4 colorectal cancer, last chemo 2017, was borderline diabetic controlled by weight loss, kidney stones passed on their own History of Any Multi-Drug Resistant Organisms: None Reported Past Surgical History: Appendectomy Additional Past Surgical History / Comment(s): Rectal tumor, right total hip replacement Past Anesthesia/Blood Transfusion Reactions: No Reported Reaction Past Psychological History: No Psychological Hx Reported Smoking Status: Former smoker Past Alcohol Use History: None Reported Past Drug Use History: None Reported Medications and Allergies Home Medications Medication Instructions Recorded Confirmed Type Ascorbic Acid [Vitamin C] 5,000 mg PO TID 10/09/22 11/26/23 History Cholecalciferol [Vitamin D3 (25 25 mcg PO DAILY 10/09/22 11/26/23 History Mcg = 1000 Iu)] Gabapentin [Neurontin] 100 mg PO TID 10/09/22 11/26/23 History Levothyroxine Sodium [Synthroid] 25 mcg PO AC-BRKFST 10/09/22 11/26/23 History Zinc Gluconate [Zinc] 50 mg PO DAILY 10/09/22 11/26/23 History Ageless Male For Men 1 tab PO DAILY 11/26/23 11/26/23 History Metoprolol Tartrate [Lopressor] 25 mg PO BID 11/26/23 11/26/23 History Multivitamins, Thera [Multivitamin 1 tab PO DAILY 11/26/23 11/26/23 History (formulary)] Pyridoxine HCl (Vitamin B6) 100 mg PO DAILY 11/26/23 11/26/23 History [Vitamin B-6] Terbinafine [LamISIL] 250 mg PO DAILY 11/26/23 11/26/23 History Vitamin E(Unknown Dose) 1 cap PO DAILY 11/26/23 11/26/23 History Allergies Allergy/AdvReac Type Severity Reaction Status Date / Time No Known Allergies Allergy Verified 11/26/23 19:56 Physical Exam Vitals: Vital Signs Temp Pulse Pulse Resp BP BP Pulse Ox 11/27/23 08:00 98.1 F 122 H 18 100/62 96 11/27/23 04:25 97.9 F 132 H 17 87/50 97 11/27/23 01:30 136 H 17 118/56 94 L 11/27/23 01:03 139 H 81/53 98 11/27/23 00:02 135 H 72/48 97 11/26/23 23:40 98 F 138 H 19 84/61 99 11/26/23 22:30 97.9 F 139 H 18 93/59 98 11/26/23 22:17 98.4 F 110 H 22 95/79 99 11/26/23 21:07 130 H 16 106/78 98 11/26/23 19:20 98.6 F 130 H 18 83/70 97 11/26/23 18:12 98.9 F 134 H 16 113/92 98 11/26/23 17:37 134 H 18 114/79 98 11/26/23 15:52 67 18 103/82 97 11/26/23 12:54 97.8 F 66 18 95/59 98 Intake and Output 11/26/23 11/27/23 11/27/23 22:59 06:59 14:59 Intake Total 20 199.375 Output Total 250 Balance -250 20 199.375 Intake: IV 20 20 Invasive Line 2 10 10 Invasive Line 3 10 10 Intake, IV Titration 79.375 Amount Heparin Sod,Pork in 0.45% 79.375 NaCl 25,000 unit In 0.45 % NaCl 1 250ml.bag @ 10.5 UNITS/KG/HR 10.002 mls/ hr IV .Q24H [facility] Rx#: [id number] Oral 100 Output: Urine 250 Other: Voiding Method Bedside Commode Urinal # Voids 1 # Bowel Movements 3 1 Weight 95.254 kg 88.9 kg GENERAL DESCRIPTION: Elderly male lying in bed, no distress. No tachypnea or accessory muscle of respiration use. HEENT: Shows Pallor , no scleral icterus. Oral mucous membrane is dry. No pharyngeal erythema or thrush NECK: Trachea central, no thyromegaly. LUNGS: Unlabored breathing. Clear to auscultation anteriorly. No wheeze or crackle. HEART: S1, S2, regular rate and rhythm. No loud murmur ABDOMEN: Soft, no tenderness , guarding or rigidity, no organomegaly EXTREMITIES: No edema of feet. SKIN: No rash, no masses palpable. NEUROLOGICAL: The patient is awake, alert, oriented x3, mood and affect normal. Results CBC & Chem 7: 11/27/23 07:19 11/27/23 07:19 Labs: Abnormal Lab Results - Last 24 Hours (Table) 11/26/23 11/26/23 11/26/23 Range/Units 13:50 13:50 21:48 RBC (4.30-5.90) m/uL Hgb (13.0-17.5) gm/dL Hct (39.0-53.0) % Lymphocytes # 0.5 L (1.0-4.8) k/uL APTT (22.0-30.0) sec Sodium 135 L (137-145) mmol/L Potassium 3.4 L (3.5-5.1) mmol/L Chloride (98-107) mmol/L Carbon Dioxide 16 L (22-30) mmol/L BUN 33 H (9-20) mg/dL Glucose 213 H (74-99) mg/dL Calcium (8.4-10.2) mg/dL Urine Protein 1+ H (Negative) Amorphous Sediment Rare H (None) /hpf Hyaline Casts 100 H (0-2) /lpf Urine Mucus Many H (None) /hpf 11/26/23 11/27/23 11/27/23 Range/Units 23:23 07:19 07:19 RBC 3.92 L 3.78 L (4.30-5.90) m/uL Hgb 12.7 L 11.6 L (13.0-17.5) gm/dL Hct 37.4 L 35.7 L (39.0-53.0) % Lymphocytes # 0.5 L 0.4 L (1.0-4.8) k/uL APTT (22.0-30.0) sec Sodium 134 L (137-145) mmol/L Potassium 3.3 L (3.5-5.1) mmol/L Chloride 110 H (98-107) mmol/L Carbon Dioxide 16 L (22-30) mmol/L BUN 28 H (9-20) mg/dL Glucose 209 H (74-99) mg/dL Calcium 8.2 L (8.4-10.2) mg/dL Urine Protein (Negative) Amorphous Sediment (None) /hpf Hyaline Casts (0-2) /lpf Urine Mucus (None) /hpf 11/27/23 Range/Units 07:19 RBC (4.30-5.90) m/uL Hgb (13.0-17.5) gm/dL Hct (39.0-53.0) % Lymphocytes # (1.0-4.8) k/uL APTT 38.3 H (22.0-30.0) sec Sodium (137-145) mmol/L Potassium (3.5-5.1) mmol/L Chloride (98-107) mmol/L Carbon Dioxide (22-30) mmol/L BUN (9-20) mg/dL Glucose (74-99) mg/dL Calcium (8.4-10.2) mg/dL Urine Protein (Negative) Amorphous Sediment (None) /hpf Hyaline Casts (0-2) /lpf Urine Mucus (None) /hpf Assessment and Plan (1) Diarrhea Current Visit: Yes Status: Acute Code(s): R19.7 - DIARRHEA, UNSPECIFIED SNOMED Code(s): 10356603 Plan: 1patient presented hospital with significant diarrhea over the last 3 days with a question of possible noninfectious etiology in this patient with no fever or elevated white count and did not recall getting exposed to antibiotic recently stool for C. difficile EIA was negative. 2we will check a stool for C. difficile PCR and stool culture. 3we will add Questran for symptomatic relief. We will follow on clinical condition and cultures to further adjust medication if needed Thank you for this consultation we will follow the patient along with you Dictation was produced using [employer] dictation software. please excuse any grammatical, word or spelling errors. Time with Patient: Greater than 30
[2023-11-28 02:15] LABS: Chol/HDL Ratio 4.93 Ratio; LDL Cholesterol,Calculated 75.6 mg/dL (0.0-131.0)
[2023-11-28] MEDS: CALCIUM CARBONATE 500 MG CHEWABLE PO PRN (05:25)
[2023-11-28 06:18] LABS: Glucose,Whole Blood 136 mg/dL (70-110)
[2023-11-28 06:26] LABS: Basophils % (A) 1 %; Eosinophils # (A) 0.1 k/uL (0-0.7); Eosinophils % (A) 2 %; HCT 38.3 % (39.0-53.0); HGB 12.5 gm/dL (13.0-17.5); Hypochromasia Slight; Lymphocytes # (A) 0.4 k/uL (1.0-4.8); Lymphocytes % (A) 9 %; MCHC 32.7 g/dL (31.0-37.0); Mean Platelet Volume 8.4; Monocytes # (A) 0.4 k/uL (0-1.0); Monocytes % (A) 10 %; Neutrophils # (A) 3.4 k/uL (1.3-7.7); Neutrophils % (A) 77 %; Platelet Count 203 k/uL (150-450); RBC 4.03 m/uL (4.30-5.90); RDW 13.6 % (11.5-15.5); WBC 4.4 k/uL (3.8-10.6)
[2023-11-28 06:32] LABS: Prothrombin Time 10.8 sec (10.0-12.5)
[2023-11-28 06:44] LABS: ALT 17 U/L (4-49); AST 28 U/L (17-59); African American GFR (CKD) >90 (>60 ml/min/1.73 sqM); Albumin 3.5 g/dL (3.5-5.0); Alkaline Phosphatase 68 U/L (38-126); Anion Gap 8 mmol/L; Blood Urea Nitrogen 22 mg/dL (9-20); Calcium 8.3 mg/dL (8.4-10.2); Carbon Dioxide 20 mmol/L (22-30); Chloride 109 mmol/L (98-107); Glucose 125 mg/dL (74-99); Magnesium 2.1 mg/dL (1.6-2.3); Non-African American GFR(CKD) 88 (>60 ml/min/1.73 sqM); Potassium 3.7 mmol/L (3.5-5.1); Sodium 137 mmol/L (137-145); Total Bilirubin 0.6 mg/dL (0.2-1.3)
--- NOTE | 2023-11-28 08:21 | P.PN ---
Subjective Progress Note Date: 11/28/23 HISTORY OF PRESENTING ILLNESS Patient is a 73-year-old male who presented to the hospital because of the complaint of diarrhea. On admission he was noticed to have atrial fibrillation with RVR for which cardiology was consulted. 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 Patient is not on any chemotherapy and is not willing to get it. He reports that he has been using high doses of vitamin C at home with appropriate response. He otherwise denies any chest pain chest pressure. He reports that he has had atrial fibrillation in the past as well and is not on any anticoagulation. Admission ECG showed atrial fibrillation with RVR, heart rate [address] changes. Labs shows hemoglobin 9.6, BUN 28, creatinine 0.8 Progress note November 28, 2023 Patient is seen and examined at bedside this a.m. His renal function is stable. Patient's diarrhea is slightly better as compared to admission time. He is still in atrial fibrillation with RVR with heart rate ranging from 110 to 120 bpm. PHYSICAL EXAMINATION Vital signs reviewed. Head: Normocephalic. Eyes: Sclerae nonicteric. Neck: Brisk carotid upstroke, no jugular venous distention. Lungs: Clear to auscultation. Heart: irregular pulse, S1-S2, no S3,mild murmur or rub. Abdomen: Soft nontender, positive bowel sounds. Extremities: No edema, intact distal pulses. Neuro: Alert, oritented, no focal deficits. Detailed neuro exam was not performed. ASSESSMENT A-fib with RVR Colorectal cancer with metastasis to lung, not on any chemotherapy at present Severe diarrhea Electrolyte imalance hypokalemia Hypothyroidism Prior cardiac testing Echo September 2022 shows a borderline normal LVEF of 50%, mild MR mild TR PLAN Patient is not willing to be started on NOACs due to high cost. Will start warfarin Monitor Mg and K levels. Give 1 dose of magnesium sulfate 2 g. Start amiodarone p.o. 400 mg twice daily. Continue metoprolol at increased dose of 75 mg twice daily Obtain a limited echocardiogram to assess for LVEF Encourage p.o. intake. Use IV fluids if needed. Objective - Vital Signs Vital signs: Vital Signs Temp 98.1 F 11/28/23 04:45 Pulse 122 H 11/28/23 04:45 Resp 22 11/28/23 04:45 BP 110/57 11/28/23 04:45 Pulse Ox 100 11/28/23 04:45 FiO2 Intake & Output 11/27/23 11/28/23 11/28/23 18:59 06:59 18:59 Intake Total 454.149 250 Balance 454.149 250 Weight 89.2 kg Intake: IV 10 Invasive Line 3 10 Intake, IV Titration 176.149 250 Amount Amiodarone 450 mg In 250 Dextrose 5% in Water 250 ml @ 0.5 MG/MIN 16.667 mls/hr IV .Q15H [facility] Rx#: [id number] Heparin Sod,Pork in 0.45% 176.149 NaCl 25,000 unit In 0.45 % NaCl 1 250ml.bag @ 10.5 UNITS/KG/HR 10.002 mls/ hr IV .Q24H [facility] Rx#: [id number] Oral 268 Other: Voiding Method Bedside Commode Bedside Commode Urinal Urinal # Voids 1 2 # Bowel Movements 1 0 - Labs CBC & Chem 7: 11/28/23 05:54 11/28/23 05:54 Labs: Abnormal Lab Results - Last 24 Hours (Table) 11/27/23 11/27/23 11/27/23 Range/Units 07:19 15:50 17:34 RBC (4.30-5.90) m/uL Hgb (13.0-17.5) gm/dL Hct (39.0-53.0) % Lymphocytes # (1.0-4.8) k/uL APTT 43.3 H (22.0-30.0) sec Sodium 134 L (137-145) mmol/L Potassium 3.3 L (3.5-5.1) mmol/L Chloride 110 H (98-107) mmol/L Carbon Dioxide 16 L (22-30) mmol/L BUN 28 H (9-20) mg/dL Glucose 209 H (74-99) mg/dL POC Glucose (mg/dL) (70-110) mg/dL Hemoglobin A1c 6.9 H (<=6.0) % Calcium 8.2 L (8.4-10.2) mg/dL Total Protein (6.3-8.2) g/dL Triglycerides (0.00-149.00) mg/dL HDL Cholesterol (40.00-60.00) mg/dL 11/27/23 11/28/23 11/28/23 Range/Units 17:34 05:54 05:54 RBC 4.03 L (4.30-5.90) m/uL Hgb 12.5 L (13.0-17.5) gm/dL Hct 38.3 L (39.0-53.0) % Lymphocytes # 0.4 L (1.0-4.8) k/uL APTT (22.0-30.0) sec Sodium (137-145) mmol/L Potassium (3.5-5.1) mmol/L Chloride 109 H (98-107) mmol/L Carbon Dioxide 20 L (22-30) mmol/L BUN 22 H (9-20) mg/dL Glucose 125 H (74-99) mg/dL POC Glucose (mg/dL) (70-110) mg/dL Hemoglobin A1c (<=6.0) % Calcium 8.3 L (8.4-10.2) mg/dL Total Protein 6.0 L (6.3-8.2) g/dL Triglycerides 196.00 H (0.00-149.00) mg/dL HDL Cholesterol 29.20 L (40.00-60.00) mg/dL 11/28/23 Range/Units 06:12 RBC (4.30-5.90) m/uL Hgb (13.0-17.5) gm/dL Hct (39.0-53.0) % Lymphocytes # (1.0-4.8) k/uL APTT (22.0-30.0) sec Sodium (137-145) mmol/L Potassium (3.5-5.1) mmol/L Chloride (98-107) mmol/L Carbon Dioxide (22-30) mmol/L BUN (9-20) mg/dL Glucose (74-99) mg/dL POC Glucose (mg/dL) 136 H (70-110) mg/dL Hemoglobin A1c (<=6.0) % Calcium (8.4-10.2) mg/dL Total Protein (6.3-8.2) g/dL Triglycerides (0.00-149.00) mg/dL HDL Cholesterol (40.00-60.00) mg/dL
[2023-11-28] MEDS: MULTIVITAMINS, THERA 1 EACH TAB PO SCH (08:35)
[2023-11-28] MEDS: AMIODARONE 200 MG TAB PO SCH (08:36)
[2023-11-28] MEDS: METOPROLOL TARTRATE 25 MG TAB PO SCH (08:36)
[2023-11-28] MEDS: MAGNESIUM SULFATE-D5W PMX 1 GM in DEXTROSE/WATER 1 100ML.BAG IVPB SCH (08:36)
[2023-11-28] MEDS: LACTATED RINGERS 500 ML IV SCH (08:37)
--- NOTE | 2023-11-28 10:53 | P.PN ---
Subjective Progress Note Date: 11/28/23 Rao Calix, is a 73-year-old male who presented to [facility] emergency room with a chief complaint of diarrhea. He was evaluated in the emergency room vital examination on presentation revealed a temperature of 97.8 pulse 66 respiration 18 blood pressure 95/59 pulse ox 98% on room air Laboratory data reveals a white blood count of 5.3 hemoglobin 14.4 platelet count 179 sodium 135 potassium 3.4 chloride 106 CO2 16 BUN 33 creatinine 1.03 Testing in the emergency room revealed EKG revealed atrial flutter with rapid ventricular response, chest x-ray revealed right hilar mass and left hilar nodule without significant change from prior exam in September 2022 Patient was admitted to medical floor for further evaluation and treatment Past medical history is significant for 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 at this time patient is resting comfortably in bed. Patient reports improvement with diarrhea. Awaiting cardiology and GI input. Patient denies chest pain. Patient denies any urinary burning or frequency on 11/28/2023 patient is alert and oriented 3. Patient still having multiple loose stools throughout night.GI service is consulted. Patient being followed by infectious disease Questran added. per cardiology patient not willing to be started on Eliquis is Xarelto due to high cost will be started on Coumadin. Medications adjusted for rate control per cardiology. Stool for C. diff ordered stool culture ordered. Patient denies chest pain. Patient denies shortness breath. Patient denies any urinary burning or frequency. White blood cell 4.4., Creatinine 0.84 bun 22 Objective - Vital Signs Vital signs: Vital Signs Temp 98.1 F 11/28/23 04:45 Pulse 122 H 11/28/23 04:45 Resp 22 11/28/23 04:45 BP 110/57 11/28/23 04:45 Pulse Ox 100 11/28/23 04:45 FiO2 Intake & Output 11/27/23 11/28/23 11/28/23 18:59 06:59 18:59 Intake Total 454.149 250 Balance 454.149 250 Weight 89.2 kg Intake: IV 10 Invasive Line 3 10 Intake, IV Titration 176.149 250 Amount Amiodarone 450 mg In 250 Dextrose 5% in Water 250 ml @ 0.5 MG/MIN 16.667 mls/hr IV .Q15H [facility] Rx#: [id number] Heparin Sod,Pork in 0.45% 176.149 NaCl 25,000 unit In 0.45 % NaCl 1 250ml.bag @ 10.5 UNITS/KG/HR 10.002 mls/ hr IV .Q24H [facility] Rx#: [id number] Oral 268 Other: Voiding Method Bedside Commode Bedside Commode Urinal Urinal # Voids 1 2 # Bowel Movements 1 0 - Exam In general patient is alert and oriented x 3 in no distress HEENT head normocephalic and atraumatic Neck is supple no JVD no goiter no lymphadenopathy no carotid bruit Chest examination is clear to auscultation no crackles no wheezing Cardiac exam reveals regular heart sounds S1 and S2 no gallops no murmurs Abdomen is soft nontender no organomegaly with normal bowel sounds Extremity exam reveals no edema no cyanosis or clubbing Neurological examination reveals no gross focal deficits - Labs CBC & Chem 7: 11/28/23 05:54 11/28/23 05:54 Labs: Abnormal Lab Results - Last 24 Hours (Table) 11/27/23 11/27/23 11/27/23 Range/Units 15:50 17:34 17:34 RBC (4.30-5.90) m/uL Hgb (13.0-17.5) gm/dL Hct (39.0-53.0) % Lymphocytes # (1.0-4.8) k/uL APTT 43.3 H (22.0-30.0) sec Chloride (98-107) mmol/L Carbon Dioxide (22-30) mmol/L BUN (9-20) mg/dL Glucose (74-99) mg/dL POC Glucose (mg/dL) (70-110) mg/dL Hemoglobin A1c 6.9 H (<=6.0) % Calcium (8.4-10.2) mg/dL Total Protein (6.3-8.2) g/dL Triglycerides 196.00 H (0.00-149.00) mg/dL HDL Cholesterol 29.20 L (40.00-60.00) mg/dL 11/28/23 11/28/23 11/28/23 Range/Units 05:54 05:54 06:12 RBC 4.03 L (4.30-5.90) m/uL Hgb 12.5 L (13.0-17.5) gm/dL Hct 38.3 L (39.0-53.0) % Lymphocytes # 0.4 L (1.0-4.8) k/uL APTT (22.0-30.0) sec Chloride 109 H (98-107) mmol/L Carbon Dioxide 20 L (22-30) mmol/L BUN 22 H (9-20) mg/dL Glucose 125 H (74-99) mg/dL POC Glucose (mg/dL) 136 H (70-110) mg/dL Hemoglobin A1c (<=6.0) % Calcium 8.3 L (8.4-10.2) mg/dL Total Protein 6.0 L (6.3-8.2) g/dL Triglycerides (0.00-149.00) mg/dL HDL Cholesterol (40.00-60.00) mg/dL Assessment and Plan Plan: Severe diarrhea Dehydration with acute kidney injury Electrolyte imbalance with hypokalemia Atrial fibrillation with rapid ventricular response Underlying 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 difficile testing was negative in the emergency room Home medications reviewed and reordered Will follow closely
[2023-11-28 11:14] LABS: Glucose,Whole Blood 149 mg/dL (70-110)
--- NOTE | 2023-11-28 12:17 | P.PN ---
Subjective Progress Note Date: 11/28/23 Principal diagnosis: Reason for follow-up is diarrhea Patient is a 73-year-old male with a past medical history significant for atrial fibrillation osteoarthritis stage IV colorectal cancer and renal insufficiency patient presenting to the ER for evaluation of diarrhea prompting this consultation. On today's evaluation that is 11/28/2023, patient has been afebrile, patient is complaining of some shortness of breath however the patient is currently on room air, patient denies having any significant cough no chest pain shortness of breath, patient denies nausea vomiting or abdominal pain and diarrhea has slowed down. Patient white count is 4.4, creatinine 0.84 Objective - Vital Signs Vital signs: Vital Signs Temp 97.7 F 11/28/23 12:00 Pulse 135 H 11/28/23 12:00 Resp 20 11/28/23 12:00 BP 104/71 11/28/23 12:00 Pulse Ox 94 L 11/28/23 12:00 FiO2 Intake & Output 11/27/23 11/28/23 11/28/23 18:59 06:59 18:59 Intake Total 454.149 250 Balance 454.149 250 Weight 89.2 kg Intake: IV 10 Invasive Line 3 10 Intake, IV Titration 176.149 250 Amount Amiodarone 450 mg In 250 Dextrose 5% in Water 250 ml @ 0.5 MG/MIN 16.667 mls/hr IV .Q15H [facility] Rx#: [id number] Heparin Sod,Pork in 0.45% 176.149 NaCl 25,000 unit In 0.45 % NaCl 1 250ml.bag @ 10.5 UNITS/KG/HR 10.002 mls/ hr IV .Q24H [facility] Rx#: [id number] Oral 268 Other: Voiding Method Bedside Commode Bedside Commode Bedside Commode Urinal Urinal Urinal # Voids 1 2 # Bowel Movements 1 0 - Exam GENERAL DESCRIPTION: An elderly male lying in bed in no distress RESPIRATORY SYSTEM: Unlabored breathing , decreased breath sounds at bases HEART: S1 S2 regular rate and rhythm , ABDOMEN: Soft , no tenderness EXTREMITIES: No edema feet - Labs CBC & Chem 7: 11/28/23 05:54 11/28/23 05:54 Labs: Abnormal Lab Results - Last 24 Hours (Table) 11/27/23 11/27/23 11/27/23 Range/Units 15:50 17:34 17:34 RBC (4.30-5.90) m/uL Hgb (13.0-17.5) gm/dL Hct (39.0-53.0) % Lymphocytes # (1.0-4.8) k/uL APTT 43.3 H (22.0-30.0) sec Chloride (98-107) mmol/L Carbon Dioxide (22-30) mmol/L BUN (9-20) mg/dL Glucose (74-99) mg/dL POC Glucose (mg/dL) (70-110) mg/dL Hemoglobin A1c 6.9 H (<=6.0) % Calcium (8.4-10.2) mg/dL Total Protein (6.3-8.2) g/dL Triglycerides 196.00 H (0.00-149.00) mg/dL HDL Cholesterol 29.20 L (40.00-60.00) mg/dL 11/28/23 11/28/23 11/28/23 Range/Units 05:54 05:54 06:12 RBC 4.03 L (4.30-5.90) m/uL Hgb 12.5 L (13.0-17.5) gm/dL Hct 38.3 L (39.0-53.0) % Lymphocytes # 0.4 L (1.0-4.8) k/uL APTT (22.0-30.0) sec Chloride 109 H (98-107) mmol/L Carbon Dioxide 20 L (22-30) mmol/L BUN 22 H (9-20) mg/dL Glucose 125 H (74-99) mg/dL POC Glucose (mg/dL) 136 H (70-110) mg/dL Hemoglobin A1c (<=6.0) % Calcium 8.3 L (8.4-10.2) mg/dL Total Protein 6.0 L (6.3-8.2) g/dL Triglycerides (0.00-149.00) mg/dL HDL Cholesterol (40.00-60.00) mg/dL 11/28/23 Range/Units 11:12 RBC (4.30-5.90) m/uL Hgb (13.0-17.5) gm/dL Hct (39.0-53.0) % Lymphocytes # (1.0-4.8) k/uL APTT (22.0-30.0) sec Chloride (98-107) mmol/L Carbon Dioxide (22-30) mmol/L BUN (9-20) mg/dL Glucose (74-99) mg/dL POC Glucose (mg/dL) 149 H (70-110) mg/dL Hemoglobin A1c (<=6.0) % Calcium (8.4-10.2) mg/dL Total Protein (6.3-8.2) g/dL Triglycerides (0.00-149.00) mg/dL HDL Cholesterol (40.00-60.00) mg/dL Assessment and Plan (1) Diarrhea Current Visit: Yes Status: Acute Code(s): R19.7 - DIARRHEA, UNSPECIFIED SNOMED Code(s): 77901734 Plan: 1patient presented hospital with significant diarrhea over the last 3 days with a question of possible noninfectious etiology in this patient with no fever or elevated white count and did not recall getting exposed to antibiotic recently stool for C. difficile EIA was negative. 2we are currently waiting for C. difficile PCR and stool culture. 3patient did have some improvement with Questran to continue for symptomatic relief. Dictation was produced using [employer] dictation software. please excuse any grammatical, word or spelling errors. Time with Patient: Less than 30
[2023-11-28] MEDS ORDERED: LOPERAMIDE 2 MG CAP PO PRN (13:07)
[2023-11-28] MEDS: DILTIAZEM ORAL 30 MG TAB PO SCH (14:58)
[2023-11-28] MEDS: IOPAMIDOL CONTRAST (ORAL USE) VIAL PO PRN (14:59)
--- NOTE | 2023-11-28 15:03 | P.CONS ---
History of Present Illness - Reason for Consult Consult date: 11/28/23 Acute diarrhea Requesting physician: Kiesha Hatfield - Chief Complaint Diarrhea - History of Present Illness this is a pleasant 73-year-old male who presented to the emergency department with complaints of significant diarrhea that started Steve night. States that he had continuous diarrhea for 3 days and presented to the emergency department. States he did start some Imodium at home and it did help a little bit. He denies any blood in his stool, no recent sick contacts, no new medications or antibiotics. C. difficile stool study was negative, stool cultures currently pending. Patient denies any associated abdominal pain, nausea or vomiting. No fevers or chills. Diarrhea is improving. Only had 2 episodes today. No leukocytosis. Review of Systems REVIEW OF SYSTEMS: CARDIOPULMONARY: No chest pain or shortness of breath. Gastrointestinal: No abdominal pain. No nausea or vomiting. No hematemesis, coffee-ground emesis. No rectal bleeding, or melena. GENITOURINARY: No dysuria or hematuria. MUSCULOSKELETAL: Reports normal range of motion., Joint pain. SKIN: No rashes. No jaundice. ENDOCRINE: No chills, fevers. No excessive weight gain or loss. No polydipsia or polyuria. PSYCHIATRIC: Unremarkable. NEUROLOGY: No change in mental status. Denies dizziness, headache. ENT: Vision unremarkable. CONSTITUTIONAL: No recent weight loss. No fever, chills, night sweats. Past Medical History Past Medical History: Atrial Fibrillation, Cancer, Osteoarthritis (OA), Renal Disease Additional Past Medical History / Comment(s): Stage 4 colorectal cancer, last chemo 2018, was borderline diabetic controlled by weight loss, kidney stones passed on their own History of Any Multi-Drug Resistant Organisms: None Reported Past Surgical History: Appendectomy Additional Past Surgical History / Comment(s): Rectal tumor, right total hip replacement Past Anesthesia/Blood Transfusion Reactions: No Reported Reaction Past Psychological History: No Psychological Hx Reported Smoking Status: Former smoker Past Alcohol Use History: None Reported Past Drug Use History: None Reported Medications and Allergies Home Medications Medication Instructions Recorded Confirmed Type Ascorbic Acid [Vitamin C] 5,000 mg PO TID 10/09/22 11/26/23 History Cholecalciferol [Vitamin D3 (25 25 mcg PO DAILY 10/09/22 11/26/23 History Mcg = 1000 Iu)] Gabapentin [Neurontin] 100 mg PO TID 10/09/22 11/26/23 History Levothyroxine Sodium [Synthroid] 25 mcg PO AC-[id number] 10/09/22 11/26/23 History Zinc Gluconate [Zinc] 50 mg PO DAILY 10/09/22 11/26/23 History Ageless Male For Men 1 tab PO DAILY 11/26/23 11/26/23 History Metoprolol Tartrate [Lopressor] 25 mg PO BID 11/26/23 11/26/23 History Multivitamins, Thera [Multivitamin 1 tab PO DAILY 11/26/23 11/26/23 History (formulary)] Pyridoxine HCl (Vitamin B6) 100 mg PO DAILY 11/26/23 11/26/23 History [Vitamin B-6] Terbinafine [LamISIL] 250 mg PO DAILY 11/26/23 11/26/23 History Vitamin E(Unknown Dose) 1 cap PO DAILY 11/26/23 11/26/23 History Allergies Allergy/AdvReac Type Severity Reaction Status Date / Time No Known Allergies Allergy Verified 11/26/23 19:56 Physical Exam Vitals: Vital Signs Temp Pulse Resp BP BP Pulse Ox 11/28/23 04:45 98.1 F 122 H 22 110/57 100 11/28/23 01:24 114 H 18 11/28/23 00:00 98.6 F 114 H 18 93/62 95 11/27/23 20:00 122 H 16 11/27/23 19:56 98.2 F 122 H 16 100/65 98 11/27/23 16:00 98.3 F 126 H 18 91/58 96 11/27/23 14:00 109 H 18 11/27/23 12:00 98.0 F 109 H 18 98/61 98 Intake and Output 11/27/23 11/28/23 11/28/23 22:59 06:59 14:59 Intake Total 396.774 Balance 396.774 Intake: Intake, IV Titration 346.774 Amount Amiodarone 450 mg In 250 Dextrose 5% in Water 250 ml @ 0.5 MG/MIN 16.667 mls/hr IV .Q15H [facility] Rx#: [id number] Heparin Sod,Pork in 0.45% 96.774 NaCl 25,000 unit In 0.45 % NaCl 1 250ml.bag @ 10.5 UNITS/KG/HR 10.002 mls/ hr IV .Q24H [facility] Rx#: [id number] Oral 50 Other: Voiding Method Bedside Commode Bedside Commode Urinal Urinal # Voids 1 2 # Bowel Movements 1 0 Weight 89.2 kg General appearance: The patient is alert, oriented, appears in no acute distress. HET: Head is normocephalic and atraumatic. Conjunctiva pink. Sclera anicteric. Neck: Supple without lymphadenopathy. Trachea midline. Heart: Regular. Lungs: Equal expansion, normal respiratory effort. Abdomen: Soft, nontender, nondistended. Skin: No rashes. No jaundice. Extremities: Normal skin color and turgor. No pedal edema. Neurological: No focal deficits. Alert and oriented x3. Results CBC & Chem 7: 11/28/23 05:54 11/28/23 05:54 Labs: Abnormal Lab Results - Last 24 Hours (Table) 11/27/23 11/27/23 11/27/23 Range/Units 15:50 17:34 17:34 RBC (4.30-5.90) m/uL Hgb (13.0-17.5) gm/dL Hct (39.0-53.0) % Lymphocytes # (1.0-4.8) k/uL APTT 43.3 H (22.0-30.0) sec Chloride (98-107) mmol/L Carbon Dioxide (22-30) mmol/L BUN (9-20) mg/dL Glucose (74-99) mg/dL POC Glucose (mg/dL) (70-110) mg/dL Hemoglobin A1c 6.9 H (<=6.0) % Calcium (8.4-10.2) mg/dL Total Protein (6.3-8.2) g/dL Triglycerides 196.00 H (0.00-149.00) mg/dL HDL Cholesterol 29.20 L (40.00-60.00) mg/dL 11/28/23 11/28/23 11/28/23 Range/Units 05:54 05:54 06:12 RBC 4.03 L (4.30-5.90) m/uL Hgb 12.5 L (13.0-17.5) gm/dL Hct 38.3 L (39.0-53.0) % Lymphocytes # 0.4 L (1.0-4.8) k/uL APTT (22.0-30.0) sec Chloride 109 H (98-107) mmol/L Carbon Dioxide 20 L (22-30) mmol/L BUN 22 H (9-20) mg/dL Glucose 125 H (74-99) mg/dL POC Glucose (mg/dL) 136 H (70-110) mg/dL Hemoglobin A1c (<=6.0) % Calcium 8.3 L (8.4-10.2) mg/dL Total Protein 6.0 L (6.3-8.2) g/dL Triglycerides (0.00-149.00) mg/dL HDL Cholesterol (40.00-60.00) mg/dL Assessment and Plan (1) Acute diarrhea Narrative/Plan: 73-year-old with acute diarrhea onset 5 days ago, Likely dealing with acute infectious diarrhea likely viral. No leukocytosis, nonbloody. No change in medications no recent antibiotic use C. difficile I will toxin negative, stool cultures are pending. Patient is responding with Questran. Continue symptomatic treatment. No plans on endoscopic evaluation. Current Visit: Yes Status: Acute Code(s): R19.7 - DIARRHEA, UNSPECIFIED SNOMED Code(s): 416665165 (2) History of colon cancer Current Visit: Yes Status: Acute Code(s): Z85.038 - PERSONAL HISTORY OF MALIGNANT NEOPLASM OF LARGE INTESTINE SNOMED Code(s): 602213206 (3) Lung cancer Current Visit: Yes Status: Acute Code(s): C34.90 - MALIGNANT NEOPLASM OF UNSP PART OF UNSP BRONCHUS OR LUNG SNOMED Code(s): 335407814 (4) Colon adenocarcinoma Current Visit: No Status: Acute Priority: High Code(s): C18.9 - MALIGNANT NEOPLASM OF COLON, UNSPECIFIED SNOMED Code(s): 394960916 Plan: 1. Continue symptomatic and supportive care 2. Diet as tolerated 3. Continue Questran 4. Imodium as needed 5. No plans on endoscopic evaluation 6. Stool cultures pending 7. If diarrhea continues to improve he is cleared from gastroenterology for discharge Thank you for this consultation, we will continue to follow. Dr. Derrick Zamora I agree with the dictator's note, documented as a scribe by Brooke Payne
[2023-11-28 16:30] LABS: Glucose,Whole Blood 125 mg/dL (70-110)
[2023-11-28] MEDS: WARFARIN 5 MG TAB PO SCH (17:23)
--- NOTE | 2023-11-28 17:31 | CT ---
EXAMINATION TYPE: CT abdomen pelvis w con CT DLP: 1216.2 mGycm, Automated exposure control for dose reduction was used. DATE OF EXAM: 11/28/2023 5:15 PM COMPARISON: CT chest 10/11/2022 CLINICAL INDICATION:Male, 73 years old with history of diarrhea; diarrhea TECHNIQUE: Axial CT abdomen pelvis w con;Sagittal and coronal reformats were created on a separate w orkstation. Contrast used:100 ml mL of Isovue 300 with IV Contrast, (none if empty) Oral contrast used: with Oral Contrast (none if empty) FINDINGS: LOWER CHEST: Right middle lobe pulmonary nodule partially visualized measuring 16 x 12 mm, previously 8 x 5 mm. Remote right rib 9 injury. Partially visualized. Suspected central venous catheter. ABDOMEN LIVER: Unremarkable GALLBLADDER AND BILE DUCTS: Unremarkable. PANCREAS: Unremarkable. SPLEEN: Unremarkable. ADRENAL GLANDS: Unremarkable. KIDNEYS AND URETERS: Nonobstructingr 3 mm calculus on the right. No left renal calculi. No obstructiv e uropathy. PELVIS BLADDER: Unremarkable REPRODUCTIVE: Unremarkable. ABDOMEN & PELVIS STOMACH AND BOWEL: No evidence of bowel obstruction. Surgical changes of the rectum/sigmoid colon. Mi ld hyperemia of the colon with some wall thickening on the transverse colon to the sigmoid colon. PERITONEUM/RETROPERITONEUM: No evidence of pneumoperitoneum or free fluid. VASCULATURE: No evidence of aortic aneurysm. MUSCULOSKELETAL: No acute osseous abnormalities, right hip arthroplasty limits evaluation the pelvis. LYMPH NODES: No gross evidence for lymphadenopathy. SOFT TISSUE/ABDOMINAL WALL: Unremarkable IMPRESSION: 1. Findings suggestive of mild colitis involving the transverse 2 sigmoid colon. 2. Enlarging right middle lobe pulmonary nodule partially visualized measuring 16 x 12 mm. Further w orkup recommended with PET/CT.
--- NOTE | 2023-11-28 19:12 | P.PN ---
Subjective Progress Note Date: 11/28/23 HISTORY OF PRESENTING ILLNESS Patient is a 73-year-old male who presented to the hospital because of the complaint of diarrhea. On admission he was noticed to have atrial fibrillation with RVR for which cardiology was consulted. 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 Patient is not on any chemotherapy and is not willing to get it. He reports that he has been using high doses of vitamin C at home with appropriate response. He otherwise denies any chest pain chest pressure. He reports that he has had atrial fibrillation in the past as well and is not on any anticoagulation. Admission ECG showed atrial fibrillation with RVR, heart rate [address] changes. Labs shows hemoglobin 9.6, BUN 28, creatinine 0.8 Progress note November 27, 2023 Patient is seen and examined at bedside this a.m. His renal function is stable. Patient's diarrhea is slightly better as compared to admission time. He is still in atrial fibrillation with RVR with heart rate ranging from 110 to 120 bpm. November 28, 2023 Patient is seen and examined at bedside this a.m. Patient does not have any further diarrhea's bowel movements. He is continuing to be in atrial fibrillation with heart rate of 110- 120 bpm. PHYSICAL EXAMINATION Vital signs reviewed. Head: Normocephalic. Eyes: Sclerae nonicteric. Neck: Brisk carotid upstroke, no jugular venous distention. Lungs: Clear to auscultation. Heart: irregular pulse, S1-S2, no S3,mild murmur or rub. Abdomen: Soft nontender, positive bowel sounds. Extremities: No edema, intact distal pulses. Neuro: Alert, oritented, no focal deficits. Detailed neuro exam was not performed. ASSESSMENT A-fib with RVR Colorectal cancer with metastasis to lung, not on any chemotherapy at present Severe diarrhea Electrolyte imalance hypokalemia Hypothyroidism Prior cardiac testing Echo September 2022 shows a borderline normal LVEF of 50%, mild MR mild TR PLAN Patient is not willing to be started on NOACs due to high cost. Will start warfarin Monitor Mg and K levels. Give 1 dose of magnesium sulfate 2 g. Start amiodarone p.o. 400 mg twice daily. Reduce dose of amiodarone to 200 mg twice daily on 12/04/2023 At Cardizem 30 mg 4 times daily Continue metoprolol at increased dose of 75 mg twice daily Encourage p.o. intake. Give 1 dose of 500 cc fluid bolus normal saline Objective - Vital Signs Vital signs: Vital Signs Temp 97.7 F 11/28/23 12:00 Pulse 120 H 11/28/23 16:00 Resp 20 11/28/23 16:00 BP 95/64 11/28/23 16:00 Pulse Ox 95 11/28/23 16:00 FiO2 Intake & Output 11/28/23 11/28/23 11/29/23 06:59 18:59 06:59 Intake Total 250 222 Balance 250 222 Weight 89.2 kg Intake: Intake, IV Titration 250 Amount Amiodarone 450 mg In 250 Dextrose 5% in Water 250 ml @ 0.5 MG/MIN 16.667 mls/hr IV .Q15H [place] Rx#: [id number] Oral 222 Other: Voiding Method Bedside Commode Bedside Commode Urinal Urinal # Voids 2 # Bowel Movements 0 3 - Labs CBC & Chem 7: 11/28/23 05:54 11/28/23 05:54 Labs: Abnormal Lab Results - Last 24 Hours (Table) 11/27/23 11/27/23 11/28/23 Range/Units 17:34 17:34 05:54 RBC 4.03 L (4.30-5.90) m/uL Hgb 12.5 L (13.0-17.5) gm/dL Hct 38.3 L (39.0-53.0) % Lymphocytes # 0.4 L (1.0-4.8) k/uL Chloride (98-107) mmol/L Carbon Dioxide (22-30) mmol/L BUN (9-20) mg/dL Glucose (74-99) mg/dL POC Glucose (mg/dL) (70-110) mg/dL Hemoglobin A1c 6.9 H (<=6.0) % Calcium (8.4-10.2) mg/dL Total Protein (6.3-8.2) g/dL Triglycerides 196.00 H (0.00-149.00) mg/dL HDL Cholesterol 29.20 L (40.00-60.00) mg/dL 11/28/23 11/28/23 11/28/23 Range/Units 05:54 06:12 11:12 RBC (4.30-5.90) m/uL Hgb (13.0-17.5) gm/dL Hct (39.0-53.0) % Lymphocytes # (1.0-4.8) k/uL Chloride 109 H (98-107) mmol/L Carbon Dioxide 20 L (22-30) mmol/L BUN 22 H (9-20) mg/dL Glucose 125 H (74-99) mg/dL POC Glucose (mg/dL) 136 H 149 H (70-110) mg/dL Hemoglobin A1c (<=6.0) % Calcium 8.3 L (8.4-10.2) mg/dL Total Protein 6.0 L (6.3-8.2) g/dL Triglycerides (0.00-149.00) mg/dL HDL Cholesterol (40.00-60.00) mg/dL 11/28/23 Range/Units 16:27 RBC (4.30-5.90) m/uL Hgb (13.0-17.5) gm/dL Hct (39.0-53.0) % Lymphocytes # (1.0-4.8) k/uL Chloride (98-107) mmol/L Carbon Dioxide (22-30) mmol/L BUN (9-20) mg/dL Glucose (74-99) mg/dL POC Glucose (mg/dL) 125 H (70-110) mg/dL Hemoglobin A1c (<=6.0) % Calcium (8.4-10.2) mg/dL Total Protein (6.3-8.2) g/dL Triglycerides (0.00-149.00) mg/dL HDL Cholesterol (40.00-60.00) mg/dL
--- NOTE | 2023-11-28 19:39 | CA ---
Transthoracic Echo Report Name: Rao Calix Age: 73 Gender: M : 1950 Exam Date: 11/28/2023 08:18 Exam Location: [facility] Echo Ht (in): 71 Wt (lb): 195 Ordering Physician: Chalo Childers MD ([id number]) Attending/Referring Phys: [employer] Seat Cover Fitter Corina Majano RDCS Procedure CPT: Indications: lvef Cardiac Hx: Technical Quality: Good Contrast 1: Total Dose (mL): Contrast 2: Total Dose (mL): MEASUREMENTS (Male / Female) Normal Values 2D ECHO LV Diastolic Diameter PLAX 5.3 cm 4.2 - 5.9 / 3.9 - 5.3 cm LV Systolic Diameter PLAX 4.1 cm IVS Diastolic Thickness 1.1 cm 0.6 - 1.0 / 0.6 - 0.9 cm LVPW Diastolic Thickness 1.1 cm 0.6 - 1.0 / 0.6 - 0.9 cm LV Relative Wall Thickness 0.4 RV Internal Dim ED PLAX 3.9 cm LA Systolic Diameter LX 3.9 cm 3.0 - 4.0 / 2.7 - 3.8 cm LV Diastolic Volume MOD 4C 111.4 cm??? LV Systolic Volume MOD 4C 60.5 cm??? LV Ejection Fraction MOD 4C 45.7 % LV Cardiac Index MOD 4C 2785.0 cm???/min???m??? LV Diastolic Length 4C 8.2 cm LV Systolic Length 4C 7.0 cm LV Diastolic Volume MOD 2C 74.7 cm??? LV Systolic Volume MOD 2C 41.7 cm??? LV Ejection Fraction MOD 2C 44.2 % LV Cardiac Index MOD 2C 1806.1 cm???/min???m??? LV Diastolic Length 2C 8.5 cm LV Systolic Length 2C 7.3 cm LA Volume 57.2 cm??? 18 - 58 / 22 - 52 cm??? LA Volume Index 27.0 cm???/m??? 16 - 28 cm???/m??? M-MODE Aortic Root Diameter MM 4.0 cm AV Cusp Separation MM 2.2 cm DOPPLER AV Peak Velocity 129.2 cm/s AV Peak Gradient 6.7 mmHg AI Peak Velocity 250.4 cm/s AI Peak Gradient 25.1 mmHg AI Pressure Half Time 607.2 ms MV Area PHT 5.7 cm??? MV Deceleration Time 129.3 ms TR Peak Velocity 245.9 cm/s TR Peak Gradient 24.2 mmHg Right Ventricular Systolic Press 28.4 mmHg FINDINGS Left Ventricle Left ventricular ejection fraction is estimated at 45-50 %. Left ventricular cavity size normal. Left ventricular wall thickness normal. Right Ventricle Moderate right ventricular dilatation. Right ventricular systolic pressure within normal limits. Right Atrium Normal right atrial size. No right atrial thrombus or mass seen. Left Atrium Normal left atrial size. No left atrial thrombus or mass present. Mitral Valve Structurally normal mitral valve. No mitral stenosis, regurgitation or prolapse. Aortic Valve Trileaflet aortic valve. Trace to mild aortic regurgitation. No aortic stenosis. Tricuspid Valve Structurally normal tricuspid valve. Mild tricuspid regurgitation. Pulmonic Valve Structurally normal pulmonic valve. No pulmonic regurgitation. Pericardium No pericardial or pleural effusion. Aorta Moderate aortic dilatation at the level of the sinuses of valsalva 40 mm CONCLUSIONS Diagnosis: Atrial fibrillation with RVR Patient tachycardic LV ejection fraction 45 to 50% Mildly enlarged aortic root, 4 cm Previewed by: Dr. Morro Albarran MD (Electronically Signed) Final Date: 28 November 2023 19:38
[2023-11-28 20:27] LABS: Glucose,Whole Blood 158 mg/dL (70-110)
[2023-11-28] MEDS: ASCORBIC ACID 500 MG TAB PO SCH (20:51)
[2023-11-28] MEDS: LACTATED RINGERS 500 ML IV ONE (23:34)
[2023-11-28] MEDS: LACTATED RINGERS 1,000 ML IV ONE (23:44)
[2023-11-29 06:14] LABS: Glucose,Whole Blood 112 mg/dL (70-110)
[2023-11-29 08:54] VITALS: RESP 16
[2023-11-29] MEDS: LACTATED RINGERS 1,000 ML IV ONE (11:04)
[2023-11-29] MEDS: LOPERAMIDE 2 MG CAP PO SCH (11:11)
[2023-11-29 11:35] LABS: Glucose,Whole Blood 148 mg/dL (70-110)
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
[2023-11-29 16:14] LABS: Glucose,Whole Blood 161 mg/dL (70-110)
[2023-11-29 16:21] LABS: Basophils % (A) 1 %; Eosinophils # (A) 0.1 k/uL (0-0.7); Eosinophils % (A) 3 %; HCT 32.3 % (39.0-53.0); HGB 10.9 gm/dL (13.0-17.5); Lymphocytes # (A) 0.6 k/uL (1.0-4.8); Lymphocytes % (A) 16 %; MCH 31.4 pg (25.0-35.0); MCHC 33.6 g/dL (31.0-37.0); MCV 93.3 fL (80.0-100.0); Mean Platelet Volume 8.2; Monocytes # (A) 0.3 k/uL (0-1.0); Monocytes % (A) 9 %; Neutrophils # (A) 2.5 k/uL (1.3-7.7); Neutrophils % (A) 70 %; Platelet Count 219 k/uL (150-450); RBC 3.47 m/uL (4.30-5.90); RDW 13.4 % (11.5-15.5); WBC 3.5 k/uL (3.8-10.6)
[2023-11-29 16:36] LABS: African American GFR (CKD) >90 (>60 ml/min/1.73 sqM); Anion Gap 6 mmol/L; Blood Urea Nitrogen 15 mg/dL (9-20); Calcium 8.5 mg/dL (8.4-10.2); Carbon Dioxide 23 mmol/L (22-30); Chloride 109 mmol/L (98-107); Glucose 146 mg/dL (74-99); Non-African American GFR(CKD) 87 (>60 ml/min/1.73 sqM); Sodium 138 mmol/L (137-145)
[2023-11-29 16:43] LABS: INR 1.1 (<1.2); Prothrombin Time 11.7 sec (10.0-12.5)
[2023-11-29] MEDS: metroNIDAZOLE 500 MG TAB PO SCH (17:02)
[2023-11-29] MEDS: WARFARIN 10 MG TAB PO ONE (18:41)
--- NOTE | 2023-11-29 18:57 | P.PN ---
Subjective Progress Note Date: 11/29/23 Rao Calix, is a 73-year-old male who presented to [facility] emergency room with a chief complaint of diarrhea. He was evaluated in the emergency room vital examination on presentation revealed a temperature of 97.8 pulse 66 respiration 18 blood pressure 95/59 pulse ox 98% on room air Laboratory data reveals a white blood count of 5.3 hemoglobin 14.4 platelet count 179 sodium 135 potassium 3.4 chloride 106 CO2 16 BUN 33 creatinine 1.03 Testing in the emergency room revealed EKG revealed atrial flutter with rapid ventricular response, chest x-ray revealed right hilar mass and left hilar nodule without significant change from prior exam in September 2022 Patient was admitted to medical floor for further evaluation and treatment Past medical history is significant for 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 at this time patient is resting comfortably in bed. Patient reports improvement with diarrhea. Awaiting cardiology and GI input. Patient denies chest pain. Patient denies any urinary burning or frequency on 11/28/2023 patient is alert and oriented 3. Patient still having multiple loose stools throughout night.GI service is consulted. Patient being followed by infectious disease Questran added. per cardiology patient not willing to be started on Eliquis is Xarelto due to high cost will be started on Coumadin. Medications adjusted for rate control per cardiology. Stool for C. diff ordered stool culture ordered. Patient denies chest pain. Patient denies shortness breath. Patient denies any urinary burning or frequency. White blood cell 4.4., Creatinine 0.84 bun 22 On 11/29/2023 patient was seen and examined on the medical floor he is alert and oriented x 3 in no apparent distress he reports some improvement in diarrhea otherwise he denies any complaints at this time there is no fever or chills no headache or dizziness no chest pain no shortness of breath no cough no nausea or vomiting no abdominal pain and no urinary symptoms Objective - Vital Signs Vital signs: Vital Signs Temp 98.1 F 11/28/23 20:46 Pulse 108 H 11/29/23 04:26 Resp 20 11/29/23 04:26 BP 98/63 11/29/23 04:26 Pulse Ox 96 11/29/23 04:26 FiO2 Intake & Output 11/28/23 11/29/23 11/29/23 18:59 06:59 18:59 Intake Total 222 Balance 222 Weight 89.9 kg Intake: Oral 222 Other: Voiding Method Bedside Commode Bedside Commode Urinal Urinal # Voids 1 # Bowel Movements 3 3 - Exam In general patient is alert and oriented x 3 in no distress HEENT head normocephalic and atraumatic Neck is supple no JVD no goiter no lymphadenopathy no carotid bruit Chest examination is clear to auscultation no crackles no wheezing Cardiac exam reveals regular heart sounds S1 and S2 no gallops no murmurs Abdomen is soft nontender no organomegaly with normal bowel sounds Extremity exam reveals no edema no cyanosis or clubbing Neurological examination reveals no gross focal deficits - Labs CBC & Chem 7: 11/29/23 15:46 11/29/23 15:46 Labs: Abnormal Lab Results - Last 24 Hours (Table) 11/28/23 11/28/23 11/28/23 Range/Units 11:12 16:27 20:23 POC Glucose (mg/dL) 149 H 125 H 158 H (70-110) mg/dL 11/29/23 Range/Units 06:12 POC Glucose (mg/dL) 112 H (70-110) mg/dL Assessment and Plan Plan: Severe diarrhea Dehydration with acute kidney injury Electrolyte imbalance with hypokalemia Atrial fibrillation with rapid ventricular response Underlying 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 difficile testing was negative in the emergency room Home medications reviewed and reordered Will follow closely
[2023-11-29 19:00] LABS: Gliadin AB IgA, Deaminated Negative (Negative); Gliadin AB IgA, Unit <0.5 U/mL; Gliadin AB IgG, Deaminated Negative (Negative); Gliadin AB IgG, Unit <0.4 U/mL
[2023-11-29 20:00] LABS: Glucose,Whole Blood 140 mg/dL (70-110)
--- NOTE | 2023-11-29 20:36 | P.PN ---
Subjective Progress Note Date: 11/29/23 Principal diagnosis: Reason for follow-up is diarrhea Patient is a 73-year-old male with a past medical history significant for atrial fibrillation osteoarthritis stage IV colorectal cancer and renal insufficiency patient presenting to the ER for evaluation of diarrhea prompting this consultation. On today's evaluation that is 11/29/2023, Patient is afebrile this morning patient denies having any chest pain shortness of breath or cough, the patient is breathing comfortably and currently on room air, patient denies any abdominal pain mention worsening of the diarrhea after he did have a CAT scan yesterday denies any blood or mucus in the stool no blood in the stool. Patient white count is 3.5, creatinine 0.87 stool for C. difficile PCR is negative stool cultures are pending patient did have CT abdominal pelvis that was concerning for mild colitis involving the transverse and sigmoid colon Objective - Vital Signs Vital signs: Vital Signs Temp 98.1 F 11/28/23 20:46 Pulse 110 H 11/29/23 11:08 Resp 16 11/29/23 11:08 BP 89/62 11/29/23 11:08 Pulse Ox 96 11/29/23 08:53 FiO2 Intake & Output 11/28/23 11/29/23 11/29/23 18:59 06:59 18:59 Intake Total 222 180 Balance 222 180 Weight 89.9 kg Intake: Oral 222 180 Other: Voiding Method Bedside Commode Bedside Commode Urinal Urinal # Voids 1 2 # Bowel Movements 3 3 - Exam GENERAL DESCRIPTION: An elderly male lying in bed in no distress RESPIRATORY SYSTEM: Unlabored breathing , decreased breath sounds at bases HEART: S1 S2 regular rate and rhythm , ABDOMEN: Soft , no tenderness EXTREMITIES: No edema feet - Labs CBC & Chem 7: 11/29/23 15:46 11/29/23 15:46 Labs: Abnormal Lab Results - Last 24 Hours (Table) 11/28/23 11/28/23 11/29/23 Range/Units 16:27 20:23 06:12 POC Glucose (mg/dL) 125 H 158 H 112 H (70-110) mg/dL 11/29/23 Range/Units 11:34 POC Glucose (mg/dL) 148 H (70-110) mg/dL Assessment and Plan (1) Diarrhea Current Visit: Yes Status: Acute Code(s): R19.7 - DIARRHEA, UNSPECIFIED SNOMED Code(s): 84209704 (2) Colitis Current Visit: Yes Status: Acute Code(s): K52.9 - NONINFECTIVE GASTROENTERITIS AND COLITIS, UNSPECIFIED SNOMED Code(s): 34961408 Plan: 1patient presented hospital with significant diarrhea over the last 3 days with a question of possible noninfectious etiology in this patient with no fever or elevated white count and did not recall getting exposed to antibiotic recently stool for C. difficile EIA as well as PCR has been negative stool culture currently pending . 2patient did have CT abdominal pelvis suspicious for colitis involving the transverse and sigmoid colon 3-we will add Rocephin and Flagyl pending stool culture completion and continue with the Questran for symptomatic relief Dictation was produced using [employer] dictation software. please excuse any grammatical, word or spelling errors. Time with Patient: Less than 30
--- NOTE | 2023-11-29 22:24 | P.PN ---
Subjective Progress Note Date: 11/29/23 HISTORY OF PRESENTING ILLNESS Patient is a 73-year-old male who presented to the hospital because of the complaint of diarrhea. On admission he was noticed to have atrial fibrillation with RVR for which cardiology was consulted. 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 Patient is not on any chemotherapy and is not willing to get it. He reports that he has been using high doses of vitamin C at home with appropriate response. He otherwise denies any chest pain chest pressure. He reports that he has had atrial fibrillation in the past as well and is not on any anticoagulation. Admission ECG showed atrial fibrillation with RVR, heart rate [address] changes. Labs shows hemoglobin 9.6, BUN 28, creatinine 0.8 Progress note November 27, 2023 Patient is seen and examined at bedside this a.m. His renal function is stable. Patient's diarrhea is slightly better as compared to admission time. He is still in atrial fibrillation with RVR with heart rate ranging from 110 to 120 bpm. November 28, 2023 Patient is seen and examined at bedside this a.m. Patient does not have any further diarrhea's bowel movements. He is continuing to be in atrial fibrillation with heart rate of 110- 120 bpm. November 29, 2023 Patient is still continuing to have atrial fibrillation with intermittent RVR. He is also having low blood pressure with systolic blood pressure in 80s. He is still continuing to have diarrhea. PHYSICAL EXAMINATION Vital signs reviewed. Head: Normocephalic. Eyes: Sclerae nonicteric. Neck: Brisk carotid upstroke, no jugular venous distention. Lungs: Clear to auscultation. Heart: irregular pulse, S1-S2, no S3,mild murmur or rub. Abdomen: Soft nontender, positive bowel sounds. Extremities: No edema, intact distal pulses. Neuro: Alert, oritented, no focal deficits. Detailed neuro exam was not performed. ASSESSMENT A-fib with RVR Colorectal cancer with metastasis to lung, not on any chemotherapy at present Severe diarrhea Electrolyte imalance hypokalemia Hypothyroidism Prior cardiac testing Echo September 2022 shows a borderline normal LVEF of 50%, mild MR mild TR PLAN Patient is not willing to be started on NOACs due to high cost. Will start warfarin Monitor Mg and K levels. Give 1 dose of magnesium sulfate 2 g. Continue amiodarone p.o. 400 mg twice daily. Reduce dose of amiodarone to 200 mg twice daily on 12/04/2023 At Cardizem 30 mg 4 times daily Continue metoprolol at increased dose of 75 mg twice daily Encourage p.o. intake. Give 1 dose of 500 cc fluid bolus Ringer lactate Objective - Vital Signs Vital signs: Vital Signs Temp 98.0 F 11/29/23 19:34 Pulse 129 H 11/29/23 19:34 Resp 16 11/29/23 19:34 BP 93/52 11/29/23 19:34 Pulse Ox 93 L 11/29/23 19:34 FiO2 Intake & Output 11/29/23 11/29/23 11/30/23 06:59 18:59 06:59 Intake Total 360 Balance 360 Weight 89.9 kg Intake: Oral 360 Other: Voiding Method Bedside Commode Urinal # Voids 1 2 # Bowel Movements 3 - Labs CBC & Chem 7: 11/29/23 15:46 11/29/23 15:46 Labs: Abnormal Lab Results - Last 24 Hours (Table) 11/29/23 11/29/23 11/29/23 Range/Units 06:12 11:34 15:46 WBC 3.5 L (3.8-10.6) k/uL RBC 3.47 L (4.30-5.90) m/uL Hgb 10.9 L (13.0-17.5) gm/dL Hct 32.3 L (39.0-53.0) % Lymphocytes # 0.6 L (1.0-4.8) k/uL Chloride (98-107) mmol/L Glucose (74-99) mg/dL POC Glucose (mg/dL) 112 H 148 H (70-110) mg/dL 11/29/23 11/29/23 11/29/23 Range/Units 15:46 16:12 20:00 WBC (3.8-10.6) k/uL RBC (4.30-5.90) m/uL Hgb (13.0-17.5) gm/dL Hct (39.0-53.0) % Lymphocytes # (1.0-4.8) k/uL Chloride 109 H (98-107) mmol/L Glucose 146 H (74-99) mg/dL POC Glucose (mg/dL) 161 H 140 H (70-110) mg/dL
[2023-11-30 05:59] LABS: Glucose,Whole Blood 109 mg/dL (70-110)
[2023-11-30 08:04] LABS: INR 1.3 (<1.2); Prothrombin Time 13.2 sec (10.0-12.5)
[2023-11-30 08:19] LABS: HCT 33.3 % (39.0-53.0); HGB 11.2 gm/dL (13.0-17.5); MCH 31.3 pg (25.0-35.0); MCHC 33.6 g/dL (31.0-37.0); MCV 93.1 fL (80.0-100.0); Mean Platelet Volume 8.3; Platelet Count 253 k/uL (150-450); RBC 3.58 m/uL (4.30-5.90); RDW 13.5 % (11.5-15.5); WBC 4.2 k/uL (3.8-10.6)
[2023-11-30 08:44] LABS: ALT 15 U/L (4-49); AST 22 U/L (17-59); African American GFR (CKD) >90 (>60 ml/min/1.73 sqM); Alkaline Phosphatase 63 U/L (38-126); Anion Gap 4 mmol/L; Band Neutrophils % 10 %; Blood Urea Nitrogen 18 mg/dL (9-20); Calcium 8.4 mg/dL (8.4-10.2); Carbon Dioxide 24 mmol/L (22-30); Chloride 112 mmol/L (98-107); Eosinophils # (M) 0.08 k/uL (0-0.7); Glucose 95 mg/dL (74-99); Large Platelets Present; Lymphocytes # (M) 0.55 k/uL (1.0-4.8); Metamyelocytes # (M) 0.13 k/uL (0); Metamyelocytes % 3 %; Monocytes # (M) 0.42 k/uL (0-1.0); Myelocytes # (M) 0.04 k/uL (0); Myelocytes % 1 %; Neutrophils % (M) 61 %; Non-African American GFR(CKD) 87 (>60 ml/min/1.73 sqM); Nucleated Red Blood Cells 0 /100 WBC (0-0); Potassium 3.9 mmol/L (3.5-5.1); Sodium 140 mmol/L (137-145); Total Bilirubin 0.4 mg/dL (0.2-1.3); Total Cells Counted 100; Total Protein 5.6 g/dL (6.3-8.2)
[2023-11-30] MEDS: LOPERAMIDE 2 MG CAP PO PRN (09:13)
[2023-11-30 09:15] LABS: Cryptosporidium Antigen Negative (Negative)
--- NOTE | 2023-11-30 10:27 | P.PN ---
Subjective Progress Note Date: 11/30/23 Rao Calix, is a 73-year-old male who presented to [facility] emergency room with a chief complaint of diarrhea. He was evaluated in the emergency room vital examination on presentation revealed a temperature of 97.8 pulse 66 respiration 18 blood pressure 95/59 pulse ox 98% on room air Laboratory data reveals a white blood count of 5.3 hemoglobin 14.4 platelet count 179 sodium 135 potassium 3.4 chloride 106 CO2 16 BUN 33 creatinine 1.03 Testing in the emergency room revealed EKG revealed atrial flutter with rapid ventricular response, chest x-ray revealed right hilar mass and left hilar nodule without significant change from prior exam in September 2022 Patient was admitted to medical floor for further evaluation and treatment Past medical history is significant for 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 at this time patient is resting comfortably in bed. Patient reports improvement with diarrhea. Awaiting cardiology and GI input. Patient denies chest pain. Patient denies any urinary burning or frequency on 11/28/2023 patient is alert and oriented 3. Patient still having multiple loose stools throughout night.GI service is consulted. Patient being followed by infectious disease Questran added. per cardiology patient not willing to be started on Eliquis is Xarelto due to high cost will be started on Coumadin. Medications adjusted for rate control per cardiology. Stool for C. diff ordered stool culture ordered. Patient denies chest pain. Patient denies shortness breath. Patient denies any urinary burning or frequency. White blood cell 4.4., Creatinine 0.84 bun 22 On 11/29/2023 patient was seen and examined on the medical floor he is alert and oriented x 3 in no apparent distress he reports some improvement in diarrhea otherwise he denies any complaints at this time there is no fever or chills no headache or dizziness no chest pain no shortness of breath no cough no nausea or vomiting no abdominal pain and no urinary symptoms on 11/29/2022 for patient's alert and oriented 3. INR still subtherapeutic at 1.3, patient started on bridging Lovenox. Patient remains on Rocephin and Flagyl. GI, infectious disease and cardiology following. Current vital signs temp is 7.7, heart rate elevated at 1:30, respiratory rate 16, blood [id number] with pulse ox 94% on room air. Cardiology adjusting cardiac medications. Patient denies chest pain or shortness of breath. Patient denies nausea vomiting or diarrhea. Patient denies any urinary burning or frequency Objective - Vital Signs Vital signs: Vital Signs Temp 97.7 F 11/30/23 09:10 Pulse 130 H 11/30/23 09:10 Resp 16 11/30/23 09:10 BP 99/64 11/30/23 09:10 Pulse Ox 94 L 11/30/23 09:10 FiO2 Intake & Output 11/29/23 11/30/23 11/30/23 18:59 06:59 18:59 Intake Total 360 118 Output Total 0 Balance 360 0 118 Weight 88.5 kg Intake: Oral 360 118 Output: Urine 0 Other: Voiding Method Bedside Commode Urinal # Voids 2 2 # Bowel Movements 1 - Exam In general patient is alert and oriented x 3 in no distress HEENT head normocephalic and atraumatic Neck is supple no JVD no goiter no lymphadenopathy no carotid bruit Chest examination is clear to auscultation no crackles no wheezing Cardiac exam reveals regular heart sounds S1 and S2 no gallops no murmurs Abdomen is soft nontender no organomegaly with normal bowel sounds Extremity exam reveals no edema no cyanosis or clubbing Neurological examination reveals no gross focal deficits - Labs CBC & Chem 7: 11/30/23 07:18 11/30/23 07:18 Labs: Abnormal Lab Results - Last 24 Hours (Table) 11/29/23 11/29/23 11/29/23 Range/Units 11:34 15:46 15:46 WBC 3.5 L (3.8-10.6) k/uL RBC 3.47 L (4.30-5.90) m/uL Hgb 10.9 L (13.0-17.5) gm/dL Hct 32.3 L (39.0-53.0) % Lymphocytes # 0.6 L (1.0-4.8) k/uL Lymphocytes # (Manual) (1.0-4.8) k/uL Metamyelocytes # (Man) (0) k/uL Myelocytes # (Manual) (0) k/uL PT (10.0-12.5) sec INR (<1.2) Chloride 109 H (98-107) mmol/L Glucose 146 H (74-99) mg/dL POC Glucose (mg/dL) 148 H (70-110) mg/dL Total Protein (6.3-8.2) g/dL Albumin (3.5-5.0) g/dL 11/29/23 11/29/23 11/30/23 Range/Units 16:12 20:00 07:18 WBC (3.8-10.6) k/uL RBC (4.30-5.90) m/uL Hgb (13.0-17.5) gm/dL Hct (39.0-53.0) % Lymphocytes # (1.0-4.8) k/uL Lymphocytes # (Manual) (1.0-4.8) k/uL Metamyelocytes # (Man) (0) k/uL Myelocytes # (Manual) (0) k/uL PT 13.2 H (10.0-12.5) sec INR 1.3 H (<1.2) Chloride (98-107) mmol/L Glucose (74-99) mg/dL POC Glucose (mg/dL) 161 H 140 H (70-110) mg/dL Total Protein (6.3-8.2) g/dL Albumin (3.5-5.0) g/dL 11/30/23 11/30/23 Range/Units 07:18 07:18 WBC (3.8-10.6) k/uL RBC 3.58 L (4.30-5.90) m/uL Hgb 11.2 L (13.0-17.5) gm/dL Hct 33.3 L (39.0-53.0) % Lymphocytes # (1.0-4.8) k/uL Lymphocytes # (Manual) 0.55 L (1.0-4.8) k/uL Metamyelocytes # (Man) 0.13 H (0) k/uL Myelocytes # (Manual) 0.04 H (0) k/uL PT (10.0-12.5) sec INR (<1.2) Chloride 112 H (98-107) mmol/L Glucose (74-99) mg/dL POC Glucose (mg/dL) (70-110) mg/dL Total Protein 5.6 L (6.3-8.2) g/dL Albumin 3.0 L (3.5-5.0) g/dL Assessment and Plan Plan: Severe diarrhea Dehydration with acute kidney injury Electrolyte imbalance with hypokalemia Atrial fibrillation with rapid ventricular response Underlying 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 difficile testing was negative in the emergency room Home medications reviewed and reordered Will follow closely
[2023-11-30 11:27] LABS: Glucose,Whole Blood 122 mg/dL (70-110)
[2023-11-30] MEDS: MAGNESIUM SULFATE-D5W PMX 1 GM in DEXTROSE/WATER 1 100ML.BAG IVPB SCH (14:11)
[2023-11-30] MEDS: DILTIAZEM ORAL 30 MG TAB PO SCH (14:11)
[2023-11-30] MEDS: LACTATED RINGERS 1,000 ML IV ONE (14:12)
--- NOTE | 2023-11-30 15:42 | P.PN ---
Subjective Progress Note Date: 11/30/23 Principal diagnosis: Diarrhea Patient seen and examined as a follow-up. States diarrhea has improved. He had 2 bowel movements through the night and this morning. States his first 1 was more formed but the second 1 was watery again usually after eating he states it will be loose. Denies any nausea or vomiting, no abdominal pain. No fevers or chills. Stool cultures are pending. Celiac panel negative. C. difficile PCR negative Objective - Vital Signs Vital signs: Vital Signs Temp 97.9 F 11/30/23 04:00 Pulse 62 11/30/23 04:00 Resp 16 11/30/23 04:00 BP 91/58 11/30/23 04:00 Pulse Ox 96 11/30/23 04:00 FiO2 Intake & Output 11/29/23 11/30/23 11/30/23 18:59 06:59 18:59 Intake Total 360 Output Total 0 Balance 360 0 Weight 88.5 kg Intake: Oral 360 Output: Urine 0 Other: Voiding Method Bedside Commode Urinal # Voids 2 2 - Exam General appearance: The patient is alert, oriented, appears in no acute distress. HET: Head is normocephalic and atraumatic. Conjunctiva pink. Sclera anicteric. Neck: Supple without lymphadenopathy. Abdomen: Soft, nontender, nondistended with bowel sounds. No guarding or rigidity. Extremities: Normal skin color and turgor. No pedal edema Skin: No rashes, no jaundice Neurological: No focal deficits. Alert and oriented. - Labs CBC & Chem 7: 11/30/23 07:18 11/30/23 07:18 Labs: Abnormal Lab Results - Last 24 Hours (Table) 11/29/23 11/29/23 11/29/23 Range/Units 11:34 15:46 15:46 WBC 3.5 L (3.8-10.6) k/uL RBC 3.47 L (4.30-5.90) m/uL Hgb 10.9 L (13.0-17.5) gm/dL Hct 32.3 L (39.0-53.0) % Lymphocytes # 0.6 L (1.0-4.8) k/uL Lymphocytes # (Manual) (1.0-4.8) k/uL Metamyelocytes # (Man) (0) k/uL Myelocytes # (Manual) (0) k/uL PT (10.0-12.5) sec INR (<1.2) Chloride 109 H (98-107) mmol/L Glucose 146 H (74-99) mg/dL POC Glucose (mg/dL) 148 H (70-110) mg/dL Total Protein (6.3-8.2) g/dL Albumin (3.5-5.0) g/dL 11/29/23 11/29/23 11/30/23 Range/Units 16:12 20:00 07:18 WBC (3.8-10.6) k/uL RBC (4.30-5.90) m/uL Hgb (13.0-17.5) gm/dL Hct (39.0-53.0) % Lymphocytes # (1.0-4.8) k/uL Lymphocytes # (Manual) (1.0-4.8) k/uL Metamyelocytes # (Man) (0) k/uL Myelocytes # (Manual) (0) k/uL PT 13.2 H (10.0-12.5) sec INR 1.3 H (<1.2) Chloride (98-107) mmol/L Glucose (74-99) mg/dL POC Glucose (mg/dL) 161 H 140 H (70-110) mg/dL Total Protein (6.3-8.2) g/dL Albumin (3.5-5.0) g/dL 11/30/23 11/30/23 Range/Units 07:18 07:18 WBC (3.8-10.6) k/uL RBC 3.58 L (4.30-5.90) m/uL Hgb 11.2 L (13.0-17.5) gm/dL Hct 33.3 L (39.0-53.0) % Lymphocytes # (1.0-4.8) k/uL Lymphocytes # (Manual) 0.55 L (1.0-4.8) k/uL Metamyelocytes # (Man) 0.13 H (0) k/uL Myelocytes # (Manual) 0.04 H (0) k/uL PT (10.0-12.5) sec INR (<1.2) Chloride 112 H (98-107) mmol/L Glucose (74-99) mg/dL POC Glucose (mg/dL) (70-110) mg/dL Total Protein 5.6 L (6.3-8.2) g/dL Albumin 3.0 L (3.5-5.0) g/dL Assessment and Plan (1) Acute diarrhea Narrative/Plan: 73-year-old with acute diarrhea onset 5 days ago, Likely dealing with acute infectious diarrhea likely viral. No leukocytosis, nonbloody. No change in medications no recent antibiotic use C. difficile I will toxin negative, stool cultures are pending. Patient is responding with Questran. Continue symptomatic treatment. Again likely this is infectious diarrhea. Imodium every 6 hours scheduled ordered. Will rule out further etiologies, celiac panel, Giardia and cryptosporidium antigens ordered. No plans on endoscopic evaluation at this time. Current Visit: Yes Status: Acute Code(s): R19.7 - DIARRHEA, UNSPECIFIED SNOMED Code(s): 767544152 (2) History of colon cancer Current Visit: Yes Status: Acute Code(s): Z85.038 - PERSONAL HISTORY OF MALIGNANT NEOPLASM OF LARGE INTESTINE SNOMED Code(s): 613206133 (3) Lung cancer Current Visit: Yes Status: Acute Code(s): C34.90 - MALIGNANT NEOPLASM OF UNSP PART OF UNSP BRONCHUS OR LUNG SNOMED Code(s): 487421721 (4) Colon adenocarcinoma Current Visit: No Status: Acute Priority: High Code(s): C18.9 - MALIGNANT NEOPLASM OF COLON, UNSPECIFIED SNOMED Code(s): 126329370 Plan: 1. Continue symptomatic and supportive care 2. Diet as tolerated 3. Continue Questran 4. Imodium every 6 hours as needed 5. Celiac panel, Giardia and cryptosporidium antigen ordered 6. Stool cultures pending 7. No plans of colonoscopy at this time. If diarrhea continues or worsens can consider outpatient colonoscopy. Patient would like to follow-up with his surgeon Dr. Ley who has done his previous colonoscopies 8. Patient may be discharged if diarrhea continues to improve Thank you for allowing us to participate in the care of the patient, the GI service will sign off, gastroenterology will not be available at the hospital this weekend. If further evaluation by gastroenterology is required the patient will need transfer as per the primary team's discretion. Dr. Derrick Zamora I agree with the dictator's note, documented as a scribe by Brooke Nj.
[2023-11-30 15:59] LABS: Glucose,Whole Blood 132 mg/dL (70-110)
[2023-11-30] MEDS: WARFARIN 10 MG TAB PO ONE (16:56)
--- NOTE | 2023-11-30 16:59 | P.PN ---
Subjective Progress Note Date: 11/30/23 Principal diagnosis: Reason for follow-up is diarrhea Patient is a 73-year-old male with a past medical history significant for atrial fibrillation osteoarthritis stage IV colorectal cancer and renal insufficiency patient presenting to the ER for evaluation of diarrhea prompting this consultation. On today's evaluation that is 11/30/2023,the patient denies any fever or any chills, patient is breathing comfortably on room air, the patient denies chest pain shortness of breath and no significant cough, patient denies abdominal pain, no nausea vomiting and the diarrhea has slowed down. Patient white count is 4.2, creatinine 0.86 stool cultures came back with Nu palma Objective - Vital Signs Vital signs: Vital Signs Temp 97.6 F 11/30/23 12:30 Pulse 77 11/30/23 12:30 Resp 16 11/30/23 12:30 BP 95/64 11/30/23 12:30 Pulse Ox 98 11/30/23 12:30 FiO2 Intake & Output 11/29/23 11/30/23 11/30/23 18:59 06:59 18:59 Intake Total 360 236 Output Total 0 Balance 360 0 236 Weight 88.5 kg Intake: Oral 360 236 Output: Urine 0 Other: Voiding Method Bedside Commode Bedside Commode Urinal Urinal # Voids 2 2 1 # Bowel Movements 1 - Exam GENERAL DESCRIPTION: An elderly male lying in bed in no distress RESPIRATORY SYSTEM: Unlabored breathing , decreased breath sounds at bases HEART: S1 S2 regular rate and rhythm , ABDOMEN: Soft , no tenderness EXTREMITIES: No edema feet - Labs CBC & Chem 7: 11/30/23 07:18 11/30/23 07:18 Labs: Abnormal Lab Results - Last 24 Hours (Table) 11/29/23 11/29/23 11/30/23 Range/Units 15:46 20:00 07:18 RBC (4.30-5.90) m/uL Hgb (13.0-17.5) gm/dL Hct (39.0-53.0) % Lymphocytes # 0.6 L (1.0-4.8) k/uL Lymphocytes # (Manual) (1.0-4.8) k/uL Metamyelocytes # (Man) (0) k/uL Myelocytes # (Manual) (0) k/uL PT 13.2 H (10.0-12.5) sec INR 1.3 H (<1.2) Chloride (98-107) mmol/L POC Glucose (mg/dL) 140 H (70-110) mg/dL Total Protein (6.3-8.2) g/dL Albumin (3.5-5.0) g/dL 11/30/23 11/30/23 11/30/23 Range/Units 07:18 07:18 11:18 RBC 3.58 L (4.30-5.90) m/uL Hgb 11.2 L (13.0-17.5) gm/dL Hct 33.3 L (39.0-53.0) % Lymphocytes # (1.0-4.8) k/uL Lymphocytes # (Manual) 0.55 L (1.0-4.8) k/uL Metamyelocytes # (Man) 0.13 H (0) k/uL Myelocytes # (Manual) 0.04 H (0) k/uL PT (10.0-12.5) sec INR (<1.2) Chloride 112 H (98-107) mmol/L POC Glucose (mg/dL) 122 H (70-110) mg/dL Total Protein 5.6 L (6.3-8.2) g/dL Albumin 3.0 L (3.5-5.0) g/dL 11/30/23 Range/Units 15:58 RBC (4.30-5.90) m/uL Hgb (13.0-17.5) gm/dL Hct (39.0-53.0) % Lymphocytes # (1.0-4.8) k/uL Lymphocytes # (Manual) (1.0-4.8) k/uL Metamyelocytes # (Man) (0) k/uL Myelocytes # (Manual) (0) k/uL PT (10.0-12.5) sec INR (<1.2) Chloride (98-107) mmol/L POC Glucose (mg/dL) 132 H (70-110) mg/dL Total Protein (6.3-8.2) g/dL Albumin (3.5-5.0) g/dL Microbiology - Last 24 Hours (Table) 11/28/23 09:42 Stool Culture - Preliminary Stool Salmonella species Assessment and Plan (1) Diarrhea Current Visit: Yes Status: Acute Code(s): R19.7 - DIARRHEA, UNSPECIFIED SNOMED Code(s): 63783023 (2) Colitis Current Visit: Yes Status: Acute Code(s): K52.9 - NONINFECTIVE GASTROENTERITIS AND COLITIS, UNSPECIFIED SNOMED Code(s): 55318773 (3) Salmonella enteritis Current Visit: Yes Status: Acute Code(s): A02.0 - SALMONELLA ENTERITIS SNOMED Code(s): 75932677 Plan: 1patient presented hospital with significant diarrhea over the last 3 days with a question of possible noninfectious etiology in this patient with no fever or elevated white count and did not recall getting exposed to antibiotic recently stool for C. difficile EIA as well as PCR has been negative stool culture currently pending . 2patient did have CT abdominal pelvis suspicious for colitis involving the transverse and sigmoid colon 3-patient story is currently growing Salmonella patient is covered with Rocephin to continue and monitor clinical course closely Dictation was produced using [employer] dictation software. please excuse any grammatical, word or spelling errors. Time with Patient: Less than 30
[2023-11-30 20:17] LABS: Glucose,Whole Blood 193 mg/dL (70-110)
[2023-11-30] MEDS: ENOXAPARIN 80 MG/0.8 ML SYRINGE SQ SCH (20:43)
--- NOTE | 2023-11-30 21:42 | P.PN ---
Subjective Progress Note Date: 11/30/23 HISTORY OF PRESENTING ILLNESS Patient is a 73-year-old male who presented to the hospital because of the complaint of diarrhea. On admission he was noticed to have atrial fibrillation with RVR for which cardiology was consulted. 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 Patient is not on any chemotherapy and is not willing to get it. He reports that he has been using high doses of vitamin C at home with appropriate response. He otherwise denies any chest pain chest pressure. He reports that he has had atrial fibrillation in the past as well and is not on any anticoagulation. Admission ECG showed atrial fibrillation with RVR, heart rate [address] changes. Labs shows hemoglobin 9.6, BUN 28, creatinine 0.8 Progress note November 27, 2023 Patient is seen and examined at bedside this a.m. His renal function is stable. Patient's diarrhea is slightly better as compared to admission time. He is still in atrial fibrillation with RVR with heart rate ranging from 110 to 120 bpm. November 28, 2023 Patient is seen and examined at bedside this a.m. Patient does not have any further diarrhea's bowel movements. He is continuing to be in atrial fibrillation with heart rate of 110- 120 bpm. November 29, 2023 Patient is still continuing to have atrial fibrillation with intermittent RVR. He is also having low blood pressure with systolic blood pressure in 80s. He is still continuing to have diarrhea. November 30, 2023 Patient is still in atrial fibrillation with poorly controlled heart rate He has borderline low blood pressure PHYSICAL EXAMINATION Vital signs reviewed. Head: Normocephalic. Eyes: Sclerae nonicteric. Neck: Brisk carotid upstroke, no jugular venous distention. Lungs: Clear to auscultation. Heart: irregular pulse, S1-S2, no S3,mild murmur or rub. Abdomen: Soft nontender, positive bowel sounds. Extremities: No edema, intact distal pulses. Neuro: Alert, oritented, no focal deficits. Detailed neuro exam was not performed. ASSESSMENT A-fib with RVR Colorectal cancer with metastasis to lung, not on any chemotherapy at present Severe diarrhea Electrolyte imalance hypokalemia Hypothyroidism Prior cardiac testing Echo September 2022 shows a borderline normal LVEF of 50%, mild MR mild TR PLAN Patient is not willing to be started on NOACs due to high cost. Will start warfarin Monitor Mg and K levels. Continue amiodarone p.o. 400 mg twice daily. Reduce dose of amiodarone to 200 mg twice daily on 12/04/2023 Increase Cardizem to 60 mg every 6 hours Continue metoprolol at increased dose of 75 mg twice daily Encourage p.o. intake. Give 1 bolus of Ringer lactate 1 L. Consider outpatient A-fib GEOVANNA cardioversion for the patient. Objective - Vital Signs Vital signs: Vital Signs Temp 97.6 F 11/30/23 12:30 Pulse 127 H 11/30/23 16:55 Resp 16 11/30/23 16:55 BP 90/60 11/30/23 16:55 Pulse Ox 95 11/30/23 16:55 FiO2 Intake & Output 11/30/23 11/30/23 12/01/23 06:59 18:59 06:59 Intake Total 354 Output Total 0 Balance 0 354 Weight 88.5 kg Intake: Oral 354 Output: Urine 0 Other: Voiding Method Bedside Commode Bedside Commode Urinal Urinal # Voids 2 1 # Bowel Movements 1 - Labs CBC & Chem 7: 11/30/23 07:18 11/30/23 07:18 Labs: Abnormal Lab Results - Last 24 Hours (Table) 11/30/23 11/30/23 11/30/23 Range/Units 07:18 07:18 07:18 RBC 3.58 L (4.30-5.90) m/uL Hgb 11.2 L (13.0-17.5) gm/dL Hct 33.3 L (39.0-53.0) % Lymphocytes # (Manual) 0.55 L (1.0-4.8) k/uL Metamyelocytes # (Man) 0.13 H (0) k/uL Myelocytes # (Manual) 0.04 H (0) k/uL PT 13.2 H (10.0-12.5) sec INR 1.3 H (<1.2) Chloride 112 H (98-107) mmol/L POC Glucose (mg/dL) (70-110) mg/dL Total Protein 5.6 L (6.3-8.2) g/dL Albumin 3.0 L (3.5-5.0) g/dL 11/30/23 11/30/23 11/30/23 Range/Units 11:18 15:58 20:15 RBC (4.30-5.90) m/uL Hgb (13.0-17.5) gm/dL Hct (39.0-53.0) % Lymphocytes # (Manual) (1.0-4.8) k/uL Metamyelocytes # (Man) (0) k/uL Myelocytes # (Manual) (0) k/uL PT (10.0-12.5) sec INR (<1.2) Chloride (98-107) mmol/L POC Glucose (mg/dL) 122 H 132 H 193 H (70-110) mg/dL Total Protein (6.3-8.2) g/dL Albumin (3.5-5.0) g/dL Microbiology - Last 24 Hours (Table) 11/28/23 09:42 Stool Culture - Preliminary Stool Salmonella species
[2023-12-01 05:56] LABS: Glucose,Whole Blood 114 mg/dL (70-110)
[2023-12-01 10:00] LABS: INR 1.7 (<1.2); Prothrombin Time 17.2 sec (10.0-12.5)
[2023-12-01 10:33] VITALS: TEMP 97.3
[2023-12-01 11:06] LABS: Glucose,Whole Blood 182 mg/dL (70-110)
--- NOTE | 2023-12-01 13:05 | P.DS ---
Providers Date of admission: 11/27/23 06:58 Expected date of discharge: 12/01/23 Attending physician: Kiesha Hatfield Consults: 11/26/23 21:06 Consult Physician Urgent Consulting Provider: [facility] Consult Reason/Comments: afib with rvr, hx afib Do you want consulting provider notified?: Yes 11/27/23 09:10 Consult Physician Routine Consulting Provider: Jennie Obrien Consult Reason/Comments: diarrhea Do you want consulting provider notified?: Yes 11/27/23 14:45 Consult Physician Routine Consulting Provider: Josselyn Zamora Consult Reason/Comments: diarrhea Do you want consulting provider notified?: Yes Primary care physician: Kiesha Liu [place] [facility] Course: Diagnosis on discharge: Severe diarrhea, with stool culture positive for Salmonella New onset atrial fibrillation with rapid ventricular response, patient was seen by cardiology, Cardizem, amiodarone, and Coumadin were added to medication regimen Dehydration with acute kidney injury Electrolyte imbalance with hypokalemia Underlying history of 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 He was evaluated in the emergency room vital examination on presentation revealed a temperature of 97.8 pulse 66 respiration 18 blood pressure 95/59 pulse ox 98% on room air Laboratory data reveals a white blood count of 5.3 hemoglobin 14.4 platelet count 179 sodium 135 potassium 3.4 chloride 106 CO2 16 BUN 33 creatinine 1.03 Testing in the emergency room revealed EKG revealed atrial flutter with rapid ventricular response, chest x-ray revealed right hilar mass and left hilar nodule without significant change from prior exam in September 2022 Patient was admitted to medical floor for further evaluation and treatment Past medical history is significant for 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 at this time patient is resting comfortably in bed. Patient reports improvement with diarrhea. Awaiting cardiology and GI input. Patient denies chest pain. Patient denies any urinary burning or frequency on 11/28/2023 patient is alert and oriented 3. Patient still having multiple loose stools throughout night.GI service is consulted. Patient being followed by infectious disease Rosy added. per cardiology patient not willing to be started on Eliquis is Xarelto due to high cost will be started on Coumadin. Medications adjusted for rate control per cardiology. Stool for C. diff ordered stool culture ordered. Patient denies chest pain. Patient denies shortness breath. Patient denies any urinary burning or frequency. White blood cell 4.4., Creatinine 0.84 bun 22 On 11/29/2023 patient was seen and examined on the medical floor he is alert and oriented x 3 in no apparent distress he reports some improvement in diarrhea otherwise he denies any complaints at this time there is no fever or chills no headache or dizziness no chest pain no shortness of breath no cough no nausea or vomiting no abdominal pain and no urinary symptoms on 11/30/2023 for patient's alert and oriented 3. INR still subtherapeutic at 1.3, patient started on bridging Lovenox. Patient remains on Rocephin and Flagyl. GI, infectious disease and cardiology following. Current vital signs temp is 7.7, heart rate elevated at 1:30, respiratory rate 16, blood [id number] with pulse ox 94% on room air. Cardiology adjusting cardiac medications. Patient denies chest pain or shortness of breath. Patient denies nausea vomiting or diarrhea. Patient denies any urinary burning or frequency On 12/01/2023 patient was seen and examined on the medical floor, he is alert and oriented x 3 in no apparent distress, his diarrhea has improved significantly, he had 1 episode of loose bowels this morning, otherwise he denies any complaints there is no fever or chills no headache or dizziness no chest pain no shortness of breath no cough no nausea or vomiting no abdominal pain and no urinary symptoms. INR is still subtherapeutic at 1.7 Stool culture was reported as positive for Salmonella today Patient is insisting on going home now, and threatening to leave AGAINST MEDICAL ADVICE, patient was counseled in length in regard to leaving the hospital prematurely, with INR subtherapeutic, and diarrhea not well-controlled yet, however he is insisting on leaving at this time. I contacted Dr. Obrien who recommended a course of Ceftin 500 mg twice daily for 10 days Patient will be discharged to home now, prescriptions for Ceftin, Coumadin, Imodium, metoprolol, Questran, Cardizem, and amiodarone are sent to his pharmacy Follow-up in the office in 2 to 3 days, follow-up with cardiology within 1 week. Patient Condition at Discharge: Stable Plan - Discharge Summary Discharge Rx Participant: Yes New Discharge Prescriptions: New Warfarin [Coumadin] 5 mg PO DAILY 30 Days #30 tab Loperamide [Imodium] 2 mg PO QID PRN 15 Days #60 cap PRN Reason: Diarrhea Metoprolol Tartrate [Lopressor] 75 mg PO BID 30 Days #60 tab Cholestyramine (with Sugar) [Questran Packet] 4 gm PO BID@1000,1800 15 Days #30 packet Diltiazem Oral [Cardizem*] 60 mg PO QID 30 Days #60 tab cefUROXime axetiL [Ceftin] 500 mg PO BID 10 Days #20 tab Amiodarone [Cordarone] 400 mg PO BID 30 Days #60 tab Continue Gabapentin [Neurontin] 100 mg PO TID Multivitamins, Thera [Multivitamin (formulary)] 1 tab PO DAILY Pyridoxine HCl (Vitamin B6) [Vitamin B-6] 100 mg PO DAILY Levothyroxine Sodium [Synthroid] 25 mcg PO AC-BRKFST Cholecalciferol [Vitamin D3 (25 Mcg = 1000 Iu)] 25 mcg PO DAILY Terbinafine [LamISIL] 250 mg PO DAILY Discontinued Zinc Gluconate [Zinc] 50 mg PO DAILY Ascorbic Acid [Vitamin C] 5,000 mg PO TID Vitamin E(Unknown Dose) 1 cap PO DAILY Ageless Male For Men 1 tab PO DAILY Metoprolol Tartrate [Lopressor] 25 mg PO BID Discharge Medication List Cholecalciferol [Vitamin D3 (25 Mcg = 1000 Iu)] 25 mcg PO DAILY 10/09/22 [History] Gabapentin [Neurontin] 100 mg PO TID 10/09/22 [History] Levothyroxine Sodium [Synthroid] 25 mcg PO AC-BRKFST 10/09/22 [History] Multivitamins, Thera [Multivitamin (formulary)] 1 tab PO DAILY 11/26/23 [History] Pyridoxine HCl (Vitamin B6) [Vitamin B-6] 100 mg PO DAILY 11/26/23 [History] Terbinafine [LamISIL] 250 mg PO DAILY 11/26/23 [History] Amiodarone [Cordarone] 400 mg PO BID 30 Days #60 tab 12/01/23 [Rx] Cholestyramine (with Sugar) [Questran Packet] 4 gm PO BID@1000,1800 15 Days #30 packet 12/01/23 [Rx] Diltiazem Oral [Cardizem*] 60 mg PO QID 30 Days #60 tab 12/01/23 [Rx] Loperamide [Imodium] 2 mg PO QID PRN 15 Days #60 cap 12/01/23 [Rx] Metoprolol Tartrate [Lopressor] 75 mg PO BID 30 Days #60 tab 12/01/23 [Rx] Warfarin [Coumadin] 5 mg PO DAILY 30 Days #30 tab 12/01/23 [Rx] cefUROXime axetiL [Ceftin] 500 mg PO BID 10 Days #20 tab 12/01/23 [Rx] Follow up Appointment(s)/Referral(s): Josselyn Zamora MD [STAFF PHYSICIAN] - 1 Week Kiesha Hatfield MD [Primary Care Provider] - 1-2 days
[2023-12-01 13:27] VITALS: BP 141/97; PULSE 50
--- NOTE | 2023-12-01 15:51 | P.PN ---
Subjective Progress Note Date: 12/01/23 Principal diagnosis: Reason for follow-up is diarrhea Patient is a 73-year-old male with a past medical history significant for atrial fibrillation osteoarthritis stage IV colorectal cancer and renal insufficiency patient presenting to the ER for evaluation of diarrhea prompting this consultation. On today's evaluation that is 12/01/2023,the patient remains to be afebrile, patient is on room air not requiring supplemental oxygen at this point satting 98% on room air patient denies having any chest pain shortness of breath or cough denies any abdominal pain and diarrhea has resolved. Patient did have a INR of 1.7 stool finalized with Salmonella Objective - Vital Signs Vital signs: Vital Signs Temp 97.3 F L 12/01/23 08:00 Pulse 50 L 12/01/23 12:00 Resp 16 12/01/23 08:00 BP 141/97 12/01/23 12:00 Pulse Ox 98 12/01/23 12:00 FiO2 Intake & Output 11/30/23 12/01/23 12/01/23 18:59 06:59 18:59 Intake Total 354 10 236 Balance 354 10 236 Weight 89.3 kg Intake: IV 10 Invasive Line 5 10 Oral 354 236 Other: Voiding Method Bedside Commode Toilet Toilet Urinal Bedside Commode Bedside Commode Urinal Urinal # Voids 1 2 0 # Bowel Movements 1 1 - Exam GENERAL DESCRIPTION: An elderly male lying in bed in no distress RESPIRATORY SYSTEM: Unlabored breathing , decreased breath sounds at bases HEART: S1 S2 regular rate and rhythm , ABDOMEN: Soft , no tenderness EXTREMITIES: No edema feet - Labs CBC & Chem 7: 11/30/23 07:18 11/30/23 07:18 Labs: Abnormal Lab Results - Last 24 Hours (Table) 11/30/23 11/30/23 12/01/23 Range/Units 15:58 20:15 05:52 PT (10.0-12.5) sec INR (<1.2) POC Glucose (mg/dL) 132 H 193 H 114 H (70-110) mg/dL 12/01/23 12/01/23 Range/Units 09:18 11:05 PT 17.2 H (10.0-12.5) sec INR 1.7 H (<1.2) POC Glucose (mg/dL) 182 H (70-110) mg/dL Microbiology - Last 24 Hours (Table) 11/28/23 09:42 Stool Culture - Final Stool Salmonella species Assessment and Plan (1) Diarrhea Status: Acute Code(s): R19.7 - DIARRHEA, UNSPECIFIED SNOMED Code(s): 19181374 (2) Colitis Status: Acute Code(s): K52.9 - NONINFECTIVE GASTROENTERITIS AND COLITIS, UNSPECIFIED SNOMED Code(s): 49824775 (3) Salmonella enteritis Status: Acute Code(s): A02.0 - SALMONELLA ENTERITIS SNOMED Code(s): 12217813 Plan: 1patient presented hospital with significant diarrhea over the last 3 days with a question of possible noninfectious etiology in this patient with no fever or elevated white count and did not recall getting exposed to antibiotic recently stool for C. difficile EIA as well as PCR has been negative stool culture currently pending . 2patient did have CT abdominal pelvis suspicious for colitis involving the transverse and sigmoid colon 3-patient stool culture grew Salmonella patient has shown improvement with Rocephin and insisting on going home will finish therapy with oral Ceftin discussed with the admitting physician working on discharge Dictation was produced using [employer] dictation software. please excuse any grammatical, word or spelling errors. Time with Patient: Less than 30
== END 2023-12-01 14:03 | disposition home or self-care (01) | DRG 372 ==
LOC: EC 12:37 → 3SCARD 21:08 → OBSVTOIN 11-27 06:58 → 3SCARD 11-29 22:26
PROVIDERS: ADMIT Internal Medicine; ATTEND Internal Medicine
DX: A02.0 Salmonella enteritis (principal); C19 Malignant neoplasm of rectosigmoid junction; C78.00 Secondary malignant neoplasm of unspecified lung; N17.9 Acute kidney failure, unspecified; I48.91 Unspecified atrial fibrillation; E86.0 Dehydration; E87.6 Hypokalemia; K52.9 Noninfective gastroenteritis and colitis, unspecified; M19.90 Unspecified osteoarthritis, unspecified site; Z85.048 Personal history of other malignant neoplasm of rectum, rectosigmoid junction, and anus; I08.3 Combined rheumatic disorders of mitral, aortic and tricuspid valves; E03.9 Hypothyroidism, unspecified; Z79.890 Hormone replacement therapy; Z79.899 Other long term (current) drug therapy; Z87.442 Personal history of urinary calculi; Z87.891 Personal history of nicotine dependence; Z96.641 Presence of right artificial hip joint
CPT/HCPCS: 36415; 71046; 74177; 80048; 80053; 80061; 81001; 82272; 83036; 83516; 83605; 83735; 83880; 84100; 84443; 84484; 85025; 85610; 85730; 87045; 87046; 87077; 87186; 87324; 87328; 87329; 87493; 87636; 93005; 93306; 96360; 96361; 99285

== ENCOUNTER → 2024-06-03 | Outpatient (CLI) | payer MEDICARE, OTHER ==
--- NOTE | 2024-06-04 08:04 | XR ---
EXAMINATION TYPE: XR chest 2V DATE OF EXAM: 06/03/2024 5:14 PM COMPARISON: Chest radiographs from 11/26/2023 CLINICAL INDICATION: Male, 73 years old with history of R05.9; [facility] TECHNIQUE: XR chest 2V Frontal and lateral views of the chest. FINDINGS: Lungs/Pleura: Left perihilar mass previously 29 mm now 35 mm. Right upper lung consolidation is new f rom prior exam. There is no evidence of pleural effusion, left focal consolidation, or pneumothorax. Pulmonary vascularity: Unremarkable. Heart/mediastinum: Cardiomediastinal silhouette is unremarkable. Musculoskeletal: No acute osseous pathology. Other findings: None Lines/Tubes:[id number] projecting over the right hemithorax with distal tip at the cavoatrial junc tion. IMPRESSION: Consolidation/moderate pleural effusion of the right upper lung new from 11/26/2023. Left perihilar soft tissue mass increased in size from prior. [facility], , 06/04/2024 8:01 AM
== END | disposition home or self-care (01) ==
LOC: RADXRMAIN 16:50
PROVIDERS: ATTEND Internal Medicine
DX: J90 Pleural effusion, not elsewhere classified (principal); R05.9 Cough, unspecified
CPT/HCPCS: 71046